=== PATIENT | female | born 1955 | race Caucasian/White ===

== ENCOUNTER → 2016-05-15 | Outpatient (CLI) | payer MEDICAID ==
--- NOTE | 2016-05-15 19:07 | MR ---
EXAMINATION TYPE: MR brain and iac wo/w con DATE OF EXAM: 05/15/2016 5:33 PM COMPARISON: NONE HISTORY: Rt sided hearing loss, dizziness Contrast: 15 mL MultiHance T1-weighted sagittal, diffusion, T2, and FLAIR axial views of the brain are submitted. The high-reso lution T2 axial and postcontrast T1 axial and coronal views of the IACs are submitted. There is no pathologic enhancement of the seventh and eighth cranial nerve complex. There is no acou stic neuroma. Changes of chronic sinusitis noted. Bilateral changes of mastoiditis greater on the right. Sella turcica has a normal appearance. Optic chiasm and cavernous sinus demonstrate no abnormality in craniocervical junction maintained. Ventricular system is midline. No evidence of acute ischemia. IMPRESSION: 1. Findings are compatible with bilateral mastoiditis greater on the right and chronic sinusitis. 2. No evidence of acoustic schwannoma or cerebellopontine angle mass.
== END | disposition home or self-care (01) ==
LOC: RADMRIMAIN 16:24
PROVIDERS: ATTEND Otolaryngology Otology & Neurotology
DX: D33.3 Benign neoplasm of cranial nerves (principal)
CPT/HCPCS: 70553; A9577

== ENCOUNTER → 2016-08-14 | Outpatient (CLI) | payer MEDICAID ==
[2016-08-14 15:58] LABS: Basophils # (A) 0.1 k/uL (0-0.2); Basophils % (A) 1 %; CH 29.4; CHCM 34.6; Eosinophils # (A) 0.5 k/uL (0-0.7); Eosinophils % (A) 8 %; HCT 37.3 % (34.0-46.0); HDW 2.87; HGB 12.9 gm/dL (11.4-16.0); Luc # (Auto) 0.19; Luc % (Auto) 3; Lymphocytes # (A) 2.4 k/uL (1.0-4.8); Lymphocytes % (A) 37 %; MCH 29.5 pg (25.0-35.0); MCHC 34.5 g/dL (31.0-37.0); MCV 85.3 fL (80.0-100.0); Mean Platelet Volume 6.5; Monocytes # (A) 0.3 k/uL (0-1.0); Monocytes % (A) 4 %; Neutrophils % (A) 46 %; RBC 4.37 m/uL (3.80-5.40); RDW 13.5 % (11.5-15.5); WBC 6.4 k/uL (3.8-10.6); WBC (Perox) 6.74
[2016-08-14 16:29] LABS: ALT 31 U/L (9-52); AST 27 U/L (14-36); Alkaline Phosphatase 87 U/L (38-126); Anion Gap 9 mmol/L; Blood Urea Nitrogen 13 mg/dL (7-17); Calcium 9.4 mg/dL (8.4-10.2); Carbon Dioxide 27 mmol/L (22-30); Chloride 108 mmol/L (98-107); Glucose 97 mg/dL (74-99); Non-African American GFR(MDRD) >60 (>60 ml/min/1.73 sqM); Potassium 4.1 mmol/L (3.5-5.1); Sodium 144 mmol/L (137-145); Total Bilirubin 0.3 mg/dL (0.2-1.3); Total Protein 6.6 g/dL (6.3-8.2)
== END | disposition home or self-care (01) ==
LOC: LABWHC1 15:39
PROVIDERS: ATTEND Family Medicine
DX: E03.9 Hypothyroidism, unspecified (principal); J45.909 Unspecified asthma, uncomplicated
CPT/HCPCS: 36415; 80053; 84439; 84443; 84481; 85025

== ENCOUNTER → 2016-09-19 | Outpatient (CLI) | payer MEDICAID ==
--- NOTE | 2016-09-20 10:42 | MM ---
Reason for exam: screening (asymptomatic). Last mammogram was performed 1 year ago. History: Patient is postmenopausal. Family history of breast cancer in maternal grandmother and breast cancer in maternal aunt. Benign cyst aspiration of the left breast, January 01, 2003. 2 benign core biopsies of the left breast. Took hormonal contraceptives for 4 years. Physical Findings: A clinical breast exam by your physician is recommended on an annual basis and results should be correlated with mammographic findings. MG 3D Screening Mammo W/Cad Bilateral CC and MLO view(s) were taken. Prior study comparison: September 07, 2015, bilateral MG 3d screening mammo w/cad. May 11, 2014, bilateral MG screening mammo w CAD. February 17, 2013, bilateral digital screening mammo w/CAD. The breast tissue is heterogeneously dense. This may lower the sensitivity of mammography. Previous mammotome biopsy in the left breast x 2. There is no discrete abnormality. ASSESSMENT: Benign, BI-RAD 2 RECOMMENDATION: Routine screening mammogram of both breasts in 1 year.
== END | disposition home or self-care (01) ==
LOC: RADMAMWWP 16:04
PROVIDERS: ATTEND Obstetrics & Gynecology
DX: Z12.31 Encounter for screening mammogram for malignant neoplasm of breast (principal)
CPT/HCPCS: 77063; G0202

== ENCOUNTER → 2016-11-01 | Outpatient (CLI) | payer MEDICAID | END | disposition home or self-care (01) | LOC: LABWHC1 09:34 | PROVIDERS: ATTEND Family Medicine | DX: E03.9 Hypothyroidism, unspecified (principal) | CPT/HCPCS: 36415; 84439; 84443; 84481 ==

== ENCOUNTER → 2016-12-04 | Outpatient (CLI) | payer MEDICAID ==
--- NOTE | 2016-12-04 09:41 | XR ---
EXAMINATION TYPE: XR ankle complete LT DATE OF EXAM: 12/04/2016 COMPARISON: NONE HISTORY: Pain FINDINGS: Three views of the ankle demonstrate the ankle mortise to be intact and symmetric. The joint spaces are preserved. The osseous structures are intact. Small spur extending off the medial malleolus. IMPRESSION: 1. No definite acute fracture or dislocation, if symptoms persist follow-up study in 7 to 10 days wou ld be suggested.
--- NOTE | 2016-12-04 09:43 | XR ---
EXAMINATION TYPE: XR knee complete LT DATE OF EXAM: 12/04/2016 COMPARISON: NONE HISTORY: Pain TECHNIQUE: Four views are submitted. FINDINGS: Moderate to severe narrowing patellofemoral joint with mild narrowing of the knee joint. No erosive c hanges. Diffuse osteopenia noted. Soft tissue calcification posteriorly. Tiny areas of bony density i n the anterior margin of the soft tissues of the knee. Osseous structures are intact. No acute fract ure seen. IMPRESSION: 1. Arthropathy with most marked findings involving the patellofemoral joint. There are small tiny bon y density seen anterior to the joint space of the knee may represent soft tissue ossification. Tiny l oose bodies not entirely excluded.
== END ==
LOC: RADXRMAIN 09:11
PROVIDERS: ATTEND Physician Assistant
DX: M17.12 Unilateral primary osteoarthritis, left knee (principal); M25.572 Pain in left ankle and joints of left foot

== ENCOUNTER → 2016-12-27 | Outpatient (CLI) | payer MEDICAID | END | disposition home or self-care (01) | LOC: LABWHC1 07:39 | PROVIDERS: ATTEND Family Medicine | DX: E03.9 Hypothyroidism, unspecified (principal) | CPT/HCPCS: 36415; 84439; 84443; 84481 ==

== ENCOUNTER → 2017-02-04 | Outpatient (CLI) | payer MEDICAID ==
[2017-02-04 16:35] LABS: CH 28.8; CHCM 33.4; HCT 37.7 % (34.0-46.0); HDW 2.68; HGB 12.4 gm/dL (11.4-16.0); MCH 28.6 pg (25.0-35.0); MCV 86.7 fL (80.0-100.0); Mean Platelet Volume 6.3; RBC 4.35 m/uL (3.80-5.40); RDW 12.8 % (11.5-15.5); WBC 7.9 k/uL (3.8-10.6)
[2017-02-04 16:55] LABS: ALT 30 U/L (9-52); AST 28 U/L (14-36); Alkaline Phosphatase 101 U/L (38-126); Anion Gap 11 mmol/L; Blood Urea Nitrogen 16 mg/dL (7-17); Calcium 9.4 mg/dL (8.4-10.2); Carbon Dioxide 24 mmol/L (22-30); Chloride 106 mmol/L (98-107); Glucose 91 mg/dL (74-99); Non-African American GFR(MDRD) >60 (>60 ml/min/1.73 sqM); Potassium 4.1 mmol/L (3.5-5.1); Sodium 141 mmol/L (137-145); Total Bilirubin 0.3 mg/dL (0.2-1.3); Total Protein 6.8 g/dL (6.3-8.2)
== END | disposition home or self-care (01) ==
LOC: LABWHC1 16:15
PROVIDERS: ATTEND Family Medicine
DX: E06.3 Autoimmune thyroiditis (principal); J45.909 Unspecified asthma, uncomplicated
CPT/HCPCS: 36415; 80053; 83540; 85027

== ENCOUNTER → 2017-03-15 | Outpatient (CLI) | payer MEDICAID ==
[2017-03-15 14:16] LABS: HCT 42.6 % (34.0-46.0); HGB 13.5 gm/dL (11.4-16.0); MCH 28.3 pg (25.0-35.0); MCHC 31.7 g/dL (31.0-37.0); MCV 89.1 fL (80.0-100.0); Mean Platelet Volume 7.2; Platelet Count 312 k/uL (150-450); RBC 4.79 m/uL (3.80-5.40); RDW 14.7 % (11.5-15.5)
[2017-03-15 14:25] LABS: Appearance,Urine Clear (Clear); Bacteria,Urine Rare /hpf; Bilirubin,Urine Negative (Negative); Blood,Urine Small (Negative); Color,Urine Yellow; Glucose,Urine (UA) Negative (Negative); Ketones,Urine Negative (Negative); Leukocyte Esterase,Urine Small (Negative); Mucus,Urine Rare /hpf; Nitrite,Urine Negative (Negative); PH, Urine 5.5 (5.0-8.0); Protein,Urine Trace (Negative); RBC,Urine 6 /hpf (0-5); Specific Gravity,Urine 1.015 (1.001-1.035); Squamous Epithelial Cell,Urine 1 /hpf (0-4); Urobilinogen,Urine <2.0 mg/dL (<2.0); WBC,Urine 6 /hpf (0-5)
[2017-03-15 14:26] LABS: ALT 41 U/L (9-52); AST 32 U/L (14-36); Albumin 4.3 g/dL (3.5-5.0); Alkaline Phosphatase 89 U/L (38-126); Anion Gap 9 mmol/L; Blood Urea Nitrogen 15 mg/dL (7-17); Calcium 9.7 mg/dL (8.4-10.2); Carbon Dioxide 27 mmol/L (22-30); Chloride 104 mmol/L (98-107); Glucose 110 mg/dL (74-99); Potassium 4.5 mmol/L (3.5-5.1); Sodium 140 mmol/L (137-145); Total Bilirubin 0.4 mg/dL (0.2-1.3); Total Protein 7.1 g/dL (6.3-8.2)
[2017-03-15 14:31] LABS: Partial Thromboplastin Time 22.4 sec (22.0-30.0); Prothrombin Time 9.9 sec (9.0-12.0)
== END | disposition home or self-care (01) ==
LOC: LABPAT 13:15
PROVIDERS: ATTEND Orthopaedic Surgery
DX: Z01.818 Encounter for other preprocedural examination (principal); Z01.812 Encounter for preprocedural laboratory examination
CPT/HCPCS: 36415; 80053; 81001; 85027; 85610; 85730; 87070; 93005

== ENCOUNTER 2017-04-01 10:47 | Inpatient (IN) | payer MEDICAID ==
[2017-03-22 11:27] VITALS: BMI 22.9
[~2017-04-01 10:47] MED LIST: ACETAMINOPHEN TAB 500 MG TAB PO ONE; DEXAMETHASONE SOD PHOSPHATE 10 MG/ML 1 ML VIAL IV ONE; LACTATED RINGERS 1,000 ML IV SCH; MIDAZOLAM 2 MG/2 ML VIAL IV PRN; MORPHINE SULFATE 4 MG/ML SYRINGE IV PRN; ONDANSETRON 4 MG/2 ML VIAL IVP ONE; SCOPOLAMINE 1.5MG/72HR PATCH TRANSDERM ONE; TRANEXAMIC ACID 1,000 MG in SODIUM CHLORIDE 0.9% 50 ML IVPB ONE
[2017-04-01] MEDS: MELOXICAM 7.5 MG TAB PO ONE ×2 (11:23→16:50)
[2017-04-01] MEDS ORDERED: LIDOCAINE 1% 20 ML VIAL (10MG/ML) FOR IV START INTRADERMA ONE (11:50)
[2017-04-01] MEDS ORDERED: ROPIVACAINE 246.25 MG, EPINEPHrine 0.5 MG, KETOROLAC 30 MG, cloNIDine HCL/PF 80 MCG, WA... MISCELLANE ONE ×5 (13:16)
[2017-04-01] MEDS ORDERED: fentaNYL (PF) 50 MCG/ML 2 ML AMP ONE (13:38)
[2017-04-01] MEDS ORDERED: diphenhydrAMINE 50 MG/ML 1 ML VIAL ONE (13:38)
[2017-04-01] MEDS ORDERED: MIDAZOLAM 2 MG/2 ML VIAL ONE (13:38)
[2017-04-01] MEDS ORDERED: PROPOFOL 10 MG/ML 20 ML VIAL IV ONE (13:38)
[2017-04-01] MEDS ORDERED: HYDROmorphone (PF) 1 MG/ML ONE (13:38)
[2017-04-01] MEDS: ceFAZolin IN SWFI 2 GM/20 ML SYRINGE IVP ONE ×2 (13:52→14:16)
[2017-04-01] MEDS: ROPIVACAINE 246.25 MG, EPINEPHrine 0.5 MG, cloNIDine HCL/PF 80 MCG, WATER FOR INJECTION... MISCELLANE ONE ×8 (14:17→14:41)
[2017-04-01] MEDS ORDERED: CLINDAMYCIN 600 MG in SODIUM CHLORIDE 0.9% 1,000 ML IRRIGATION ONE ×4 (14:18)
[2017-04-01] MEDS ORDERED: LACTATED RINGERS 1,000 ML IV ONE (14:51)
--- NOTE | 2017-04-01 15:56 | P.OP ---
Date of Procedure: 04/01/17 Procedure(s) Performed: PREOPERATIVE DIAGNOSIS: Left knee severe osteoarthritis with genu varum POSTOPERATIVE DIAGNOSIS: Left knee severe osteoarthritis with genu varum OPERATION: Left knee cemented total replacement arthroplasty. ANESTHESIA: Spinal ESTIMATED BLOOD LOSS: 100 ml. ASSEMBLY MACHINE TENDER: Ning Gomez PA-C (assistance with: patient positioning, retraction, exposure, hemostasis, leg positioning, implantation, irrigation, closure, dressing) COMPLICATIONS: None apparent. COMPONENTS IMPLANTED: Persona system from [employer] INDICATIONS: Mrs. Sandra is a 61-year-old female with a history of left knee osteoarthritis. Conservative treatment has been tried and has been unsuccessful in controlling symptoms adequately. The operation of knee replacement has been discussed at length in the office, as well as potential risks and complications. These are inclusive of, but not limited to: bleeding, infection, scarring, discomfort, blood vessel and nerve damage, need for further surgery, failure to relieve symptoms, persistence, recurrence, or worsening of problems, loosening, dislocation, wear, blood clot, pulmonary embolism, , gait dysfunction, stiffness, and other risks as discussed in the office. The patient elects to proceed and the consent form has been signed. PROCEDURE: The patient was taken to the operating room and positioned on the operating room table in the supine position. Anesthesia was initiated. Care was taken to make sure that all pressure points were adequately padded. The operative lower extremity was prepped and draped in the usual aseptic fashion using ChloraPrep. Ioban drape was used for the case and the patient received intravenous antibiotics within one hour of the incision. A pneumotourniquet and leg augustin were used for the case. The limb was exsanguinated with an Esmarch bandage and the tourniquet was inflated to 350 mmHg. Time-out was called confirming the patient's identity, side, procedure and administration of antibiotics and tranexamic acid, 1 g IV. The incision was then created midline directly over the knee, carried down through skin and into the subcutaneous tissues and down to fascia. Full thickness subcutaneous medial flap was developed. Medial parapatellar arthrotomy was performed and the interior of the knee was inspected. There was end-stage osteoarthritis of the knee with a mild to moderate genu varum type deformity. The fat pad was excised and proximal medial release on the tibia was completed using meticulous dissection and a curved osteotome. The anterior cruciate ligament was taken down. Note was made of significant attrition of the anterior and significant degenerative appearance of the posterior cruciate ligaments. The exposure was excellent. The knee was flexed 90 degrees and the patella was everted. A spot was chosen on the femur approximately 1 cm anterior to the posterior cruciate ligament insertion and an intramedullary hole was created within the femur. The intramedullary guide was then set to 5 degrees of valgus. The distal cutting block was attached and pinned into position. An appropriate amount of distal femoral resection was set. The oscillating saw was then used to make the distal femoral cut. This cut was confirmed to be flat with the flat end of an osteotome. The retractors were placed around the tibia and the tibial surface was addressed. The angle and depth of resection was adjusted using an extramedullary cutting guide. The guide had a built-in 3 degree posterior slope cut. Once the cutting guide was adjusted appropriately and in line with the axis of the tibia and confirmed to be in good position in relation to the second metatarsal and transmalleolar axis, the tibial cut was then created with protection of the posterior neurovascular structures and the collateral ligaments. The tibial cut surface was removed and sized. Femoral sizing was then accomplished using anterior referencing. Care was taken to analyze the posterior condyles for signs of deficiency or severe wear, and adjustments to the guide were made, as appropriate. 3 degree external rotation pins were placed. The cutting jig for the femur was applied to these pins. The planned cuts were further analyzed prior to performing them with the oscillating saw. No femoral notching was produced. Bone fragments were removed and the cut surfaces were finished, as necessary, with a reciprocating saw. Spacer block technique was then used to confirm that the flexion and extension gaps were equal. Soft tissue releases and adjustment of the tibial and/or femoral cuts were made, as necessary, until the gaps were equal. This included release of the posterior cruciate ligament, which was tight in this patient. The femur was then further finished for a posterior cruciate ligament substituting component. Patellar resurfacing was performed using a reamer. The size of the required patellar component was estimated and the patellar surface was then reamed down to a residual thickness which would recreate the [place] thickness with the component. The placement of the patellar component was influenced by the degree of patellar subluxation, if any, noted on the preoperative x-rays. Prior to placing trial components, anesthetic solution consisting of ropivicaine with epinephrine, ketorolac, and clonidine was injected carefully and methodically in a grid pattern using aspiration technique into the soft tissue around the knee circumferentially, starting with the deeper tissues first and progressing to fascia, and then finally the skin/subcutaneous tissue. Particular care was taken when injecting the posterior capsule. The trial components were inserted. The tibial tray was allowed to self center and the patella was noted to track very well. The position of the tibial component was marked and the tibia was then finished for a stemmed tibial component. Cement was mixed on the back table and applied to the final components. Trial components were removed and the cut surfaces of the bone were pulse lavaged thoroughly and dried. Cement was then applied to the tibial surface and pressurized into the surface using finger pressurization technique. The tibial component was then applied and excess cement was removed after it was impacted securely and noted to be flush with the cut surface. In similar fashion, the cement was applied to the cut femoral surface, pressurized in using finger pressurization and the component was impacted into place. Excess cement was removed. The polyethylene spacer was then implanted and locked into position. The patellar component was then applied in similar technique and a patellar clamp was used to hold the patella in place as the cement hardened. Once the cement had fully hardened, the knee was reinspected. Any other cement extrusion was removed and final kinematic testing showed range of motion from 0 to 130 degrees with excellent stability, both medially and laterally and appropriate alignment of the leg. Patellar tracking was excellent. The knee was then thoroughly pulse lavaged with normal saline. The tourniquet was deflated and hemostasis was obtained with electrocautery and IV tranexamic acid, 1 g given prior to inflation of the tourniquet and another gram given at the time of closure. Closure was with #2 Ethibond in the fascia and supplemented with #2 Quill, 2-0 Vicryl suture was used for the subcutaneous tissues and 3-0 Quill for the skin. Dermabond/Steri-Strips were then applied. A lightly compressive dressing was applied using Webril and an Kirit wrap. The patient was then transferred to stretcher and taken to the recovery room in stable condition. Sponge and needle counts were correct.
[2017-04-01] MEDS ORDERED: NA PHOS,M-B/NA PHOS,DI-BA 133 ML ENEMA RECTAL PRN (15:57)
[2017-04-01] MEDS ORDERED: MAGNESIUM HYDROXIDE 2,400 MG/10 ML CUP PO PRN (15:57)
[2017-04-01] MEDS ORDERED: HYDROmorphone 0.5 MG/0.5 ML SYRINGE IVP PRN ×2 (15:57)
[2017-04-01] MEDS ORDERED: TEMAZEPAM 15 MG CAP PO PRN (15:57)
[2017-04-01] MEDS ORDERED: NALOXONE 0.4 MG/ML 1 ML VIAL IV PRN (15:57)
[2017-04-01] MEDS ORDERED: ONDANSETRON 4 MG/2 ML VIAL IVP PRN (15:57)
[2017-04-01] MEDS ORDERED: BISACODYL 10 MG SUPP RECTAL PRN (15:57)
--- NOTE | 2017-04-01 16:28 | XR ---
Left knee HISTORY: Postop knee arthroplasty 2 views of the left knee correlated to prior exam 12/04/2016 Patient is status post left knee arthroplasty. There is anatomic alignment. Lucency present in the so ft tissues compatible with postop state. Calcifications are noted about the knee posteriorly. IMPRESSION: Orthopedic follow-up
[2017-04-01] MEDS: LACTATED RINGERS 1,000 ML IV SCH (17:18)
[2017-04-01] MEDS ORDERED: FLUTICASONE 50MCG/SPRAY NASAL 16GM EA NOSTRIL PRN (19:13)
[2017-04-01] MEDS: HYDROcodone/APAP 5-325MG 1 EACH TAB PO PRN (19:56)
[2017-04-01] MEDS: ceFAZolin IN SWFI 2 GM/20 ML SYRINGE IVP SCH (19:57)
[2017-04-01] MEDS: SENNOSIDES-DOCUSATE SODIUM 1 EACH TAB PO SCH (19:57)
[2017-04-01] MEDS: LORATADINE 10 MG TAB PO SCH (19:59)
[2017-04-02] MEDS: ACETAMINOPHEN TAB 325 MG TAB PO PRN ×3 (00:57→10:03)
[2017-04-02] MEDS: ceFAZolin IN SWFI 2 GM/20 ML SYRINGE IVP SCH (05:33)
[2017-04-02] MEDS: hydrOXYzine PAMOATE 25 MG CAP PO PRN ×3 (05:52→17:18)
[2017-04-02] MEDS: HYDROcodone/APAP 5-325MG 1 EACH TAB PO PRN ×3 (05:53→19:28)
[2017-04-02] MEDS: THYROID, PORK 30 MG TAB PO SCH (05:53)
[2017-04-02] MEDS: LACTATED RINGERS 1,000 ML IV SCH ×2 (06:42→18:09)
[2017-04-02 07:24] LABS: Basophils # (A) 0.1 k/uL (0-0.2); Basophils % (A) 0 %; Eosinophils % (A) 0 %; HCT 32.8 % (34.0-46.0); HGB 10.9 gm/dL (11.4-16.0); Lymphocytes # (A) 2.5 k/uL (1.0-4.8); Lymphocytes % (A) 21 %; MCH 28.4 pg (25.0-35.0); MCHC 33.2 g/dL (31.0-37.0); MCV 85.5 fL (80.0-100.0); Mean Platelet Volume 6.8; Monocytes # (A) 0.9 k/uL (0-1.0); Monocytes % (A) 8 %; Neutrophils # (A) 8.4 k/uL (1.3-7.7); Neutrophils % (A) 69 %; Platelet Count 272 k/uL (150-450); RBC 3.84 m/uL (3.80-5.40); RDW 12.8 % (11.5-15.5); WBC 12.1 k/uL (3.8-10.6)
--- NOTE | 2017-04-02 08:37 | CONS ---
CONSULTATION REASON FOR CONSULTATION: Advice regarding hypothyroidism and other multiple medical issues requested by Orthopedic surgery. HISTORY OF PRESENT ILLNESS: This 67-year-old woman with a past medical history of hypothyroidism, history of migraine, Sandrine's thyroid disease, history of DJD being followed by Dr. Mike in the outpatient setting underwent left total knee arthroplasty by Orthopedic surgery. There is no history of fever, rigors, no headache, loss of consciousness, seizures. PAST MEDICAL HISTORY: History of hypothyroidism, migraine headaches, Sandrine's disease. MEDICATIONS: Prior to admission include home medications are: 1. 20 mg q.a.m. 2. Vitamin B one p.o. daily. 3. Alloy thyroid 90 mcg p.o. daily. 4. Macrodantin 100 mg p.o. b.i.d. 5. Multivitamin. 6. Flonase 2 sprays daily p.r.n. 7. Iron sulfate 325 mg. 8. Vitamin D3 2000. 9. Zyrtec 10 mg. 10.Calcium with vitamin D 1 tab p.o. daily. 11.Biotin 500 mcg. 12.Vitamin C 1000 mg p.o. daily. 13.Senokot-S 1 tab p.o. b.i.d. 14.Xarelto 10 mg. 15.[place] 5 mg 1 tab q.4h to 6 p.r.n. ALLERGIES: CIPRO, FLOXIN AND NSAIDS, PENICILLIN, SULFA, WHEAT AND CODEINE. FAMILY HISTORY: Family history of cancer in the family. SOCIAL HISTORY: Previous history of smoking. No alcohol intake. REVIEW OF SYSTEMS: ENT: No diminished hearing or vision. CARDIOVASCULAR: No angina or palpitations. Respiratory: As mentioned earlier. GI no nausea or vomiting. no dysuria. Allergy/Immunology: No asthma or hayfever. Musculoskeletal: As mentioned earlier. Hematology/Oncology: No history of anemia. Endocrine: As mentioned earlier. Constitutional: As mentioned earlier. Rheumatology: Negative. Dermatology: Negative. Psychiatric: As mentioned earlier. PHYSICAL EXAM: The patient is alert and oriented times three. Pulse 76, blood pressure 140/77, respiratory rate 16, temperature 98, pulse ox 98% on 2 L. HEENT: Conjunctivae normal. Oral mucosa moist. Neck is no jugular venous distention. No carotid bruit. No lymph node enlargement. Cardiovascular S1 S2. No S3, no S4. Respiratory: Breath sounds diminished in the bases. No rhonchi. No crackles. ABDOMEN: Soft, nontender. Legs: Status post left knee arthroplasty. NERVOUS SYSTEM: Higher functions as mentioned earlier, moves all 4 limbs, no focal deficits.. Lymphatics: No lymph nodes palpable in the neck, axillae or groin. Skin no ulcer, rash or bleeding. LABS: Glucose is 110. Otherwise, LDL is 127, free T4, is normal. TSH is 1. UA 18 RBCs. ASSESSMENT: 1. Status post left total knee arthroplasty for severe degenerative joint disease. 2. Hypothyroidism. 3. Migraines. 4. Sandrine's. 5. Hyperlipidemia. 6. History of uterine ablation. 7. Cardioversion. 8. Remote history of nicotine dependence. RECOMMENDATIONS AND DISCUSSION: In this 61-year-old woman who presented with multiple complex medical issues, at this time, we will monitor the patient closely. Continue the current medications, continue symptomatic treatment. Otherwise, at this time, I recommend resume the home medications and DVT prophylaxis. Incentive spirometry. Advice close follow up with Dr. Mike in the outpatient setting regarding the followup of multiple medical issues as listed earlier. I would also repeat a UA with micro also to complete the workup. Otherwise we will follow the patient closely with you. Thank you Dr. Hernandez, for letting us participate in the care of this patient. MMYANETHL / DAVIN: [id number] / LUCIA
--- NOTE | 2017-04-02 08:47 | P.PN ---
Subjective Progress Note Date: 04/02/17 Principal diagnosis: Status post left total knee arthroplasty This is a 61 year-old female post left total knee arthroplasty. This is post- op day 1. The patient was evaluated at the bedside today. The patient denies nausea, vomiting, abdominal pain, shortness of breath, and chest pain this morning. She states her pain is not controlled at this time. The patient has not been up with physical therapy yet this morning. Objective - Vital Signs Vital signs: Vital Signs Temp 98.0 F 04/02/17 04:12 Pulse 70 04/02/17 04:12 Resp 16 04/02/17 04:12 BP 128/60 04/02/17 04:12 Pulse Ox 94 L 04/02/17 04:12 Intake & Output 04/01/17 04/02/17 04/02/17 18:59 06:59 18:59 Intake Total 1502 Output Total 75 Balance 1427 Weight 72.575 kg Intake: IV 1502 Output: Estimated Blood Loss 75 Other: Voiding Method Toilet Bedside Commode # Voids 2 - Exam The patient does not appear in acute distress. Alert and orientated x3. Dressing is clean dry and intact. Incision appears fine with no erythema or active drainage. Calf is soft and nontender. Good foot and ankle motion without difficulty. Sensation and circulatory status is intact. - Labs CBC & Chem 7: 04/02/17 06:33 Labs: Abnormal Lab Results - Last 24 Hours (Table) 04/02/17 Range/Units 06:33 WBC 12.1 H (3.8-10.6) k/uL Hgb 10.9 L (11.4-16.0) gm/dL Hct 32.8 L (34.0-46.0) % Neutrophils # 8.4 H (1.3-7.7) k/uL Assessment and Plan (1) Primary localized osteoarthritis of left knee Current Visit: Yes Status: Acute Code(s): M17.12 - UNILATERAL PRIMARY OSTEOARTHRITIS, LEFT KNEE SNOMED Code(s): 763624028 (2) Status post total left knee replacement Current Visit: Yes Status: Acute Code(s): Z96.652 - PRESENCE OF LEFT ARTIFICIAL KNEE JOINT SNOMED Code(s): 3415335998965 Plan: 1. Continue pain control, may increase to two [place] 5's 2. Anticoagulation with Xarelto 3. Start physical therapy, CPM, and ambulation 4. Anticipate discharge home today or tomorrow
[2017-04-02] MEDS ORDERED: NON-FORMULARY DRUG (Biotin [Biotin] 5,000 MCG) PO SCH (09:00)
[2017-04-02] MEDS: CHOLECALCIFEROL 1,000 UNIT TAB PO SCH (10:04)
[2017-04-02] MEDS: B COMPLEX-VIT C-VIT E-ZINC 1 EACH TAB PO SCH (10:04)
[2017-04-02] MEDS: CALCIUM CARB-VIT D 500MG-200UN 1 EACH TAB PO SCH (10:04)
[2017-04-02] MEDS: MULTIVITAMINS, THERA 1 EACH TAB PO SCH (10:04)
[2017-04-02] MEDS: RIVAROXABAN 10 MG TAB PO SCH (10:05)
[2017-04-02] MEDS: FERROUS SULFATE 325 MG TAB PO SCH (10:05)
--- NOTE | 2017-04-02 16:49 | PN ---
PROGRESS NOTE DATE OF SERVICE: 04/02/2017. INTERVAL HISTORY: This 61-year-old woman who was admitted after a total left knee arthroplasty. Monitored closely. No chest pain. No palpitations. No fever. Patient complaining of knee pain. EXAM: Alert and oriented times three. Pulse is 65, blood pressure 110/87, respirations 16, temperature 98.2, pulse ox 98% on room air. HEENT: Conjunctivae normal. Neck: No jugular venous distention. Cardiovascular: S1, S2 muffled. Respiratory: Breath sounds diminished in the bases. No rhonchi and no crackles. Abdomen: Soft. Legs status post surgery. Nervous system: No focal deficits. LAB STUDIES: At this time shows WBC 12.2, hemoglobin 10.9. ASSESSMENT: 1. Status post left total knee arthroplasty for severe degenerative joint disease. 2. Increased WBC possibly reactive, rule out urinary tract infection. 3. Hypothyroidism. 4. Migraines. 5. Sandrine's. 6. Hyperlipidemia. 7. History of uterine ablation. 8. History of cardioversion. 9. Remote history of nicotine dependence. RECOMMENDATIONS AND DISCUSSION: Recommend to continue current medications, management and symptomatic treatment. Recommend UA with micro. Otherwise continue the rest of medications. DVT prophylaxis. Further recommendations to follow. MMODL / IJN: [id number] /
[2017-04-02] MEDS: traMADol 50 MG TAB PO PRN (17:18)
[2017-04-02] MEDS: SENNOSIDES-DOCUSATE SODIUM 1 EACH TAB PO SCH (21:11)
[2017-04-02] MEDS: LORATADINE 10 MG TAB PO SCH (21:12)
[2017-04-02] MEDS: MONTELUKAST 5 MG CHEWABLE PO SCH (21:12)
[2017-04-03] MEDS: THYROID, PORK 30 MG TAB PO SCH (05:39)
[2017-04-03] MEDS: traMADol 50 MG TAB PO PRN ×3 (08:28→18:22)
[2017-04-03] MEDS: CALCIUM CARB-VIT D 500MG-200UN 1 EACH TAB PO SCH (08:29)
[2017-04-03] MEDS: CHOLECALCIFEROL 1,000 UNIT TAB PO SCH (08:29)
[2017-04-03] MEDS: B COMPLEX-VIT C-VIT E-ZINC 1 EACH TAB PO SCH (08:29)
[2017-04-03] MEDS: MULTIVITAMINS, THERA 1 EACH TAB PO SCH (08:29)
[2017-04-03] MEDS: RIVAROXABAN 10 MG TAB PO SCH (08:30)
[2017-04-03] MEDS: FERROUS SULFATE 325 MG TAB PO SCH (08:30)
--- NOTE | 2017-04-03 08:37 | P.DS ---
Providers Date of admission: 04/01/17 10:47 Expected date of discharge: 04/03/17 Attending physician: Miller Hernandez Consults: 04/01/17 15:57 Consult Physician Routine Consulting Provider: Oswald Mike Consult Reason/Comments: Medical management Do you want consulting provider notified?: Yes 04/01/17 16:51 Consult Physician Routine Consulting Provider: Sharif Funes Consult Reason/Comments: medical managment Do you want consulting provider notified?: Yes Primary care physician: Eric Mike - Discharge Diagnosis(es) (1) Primary localized osteoarthritis of left knee Current Visit: Yes Status: Acute (2) Status post total left knee replacement Current Visit: Yes Status: Acute Hospital Course: This is a 61-year-old female who was last seen with complaint of continued left knee pain. The patient has a known history of degenerative arthritis of the left knee and presents to discuss surgical options. After discussion and consideration the patient elects to proceed with total left knee arthroplasty. The patient is seen preoperatively by her primary care physician and cleared for surgery. The patient is admitted to [facility] for total left knee arthroplasty. The procedure is performed without complication or sequelae. She is doing well postoperatively. There were some issues with pain management during her stay. She is doing much better on day of discharge. Vital signs are stable at discharge. Labs are stable at discharge. the patient is ambulating well with walker with minimal assistance. The patient is discharged to home on postop day #2 pending medical clearance. Please see orders and refer to the [facility] rec for accurate list of medications. Plan - Discharge Summary Discharge Rx Participant: Yes New Discharge Prescriptions: New Rivaroxaban [Xarelto] 10 mg PO DAILY #1 tab HYDROcodone/APAP 5-325MG [Suring 5-325] 1 - 2 each PO Q4-6H PRN #90 tab PRN Reason: Pain Sennosides-Docusate Sodium [Senokot-S] 1 tab PO BID #60 tablet traMADol HCL [Conzip] 100 mg PO Q6H #90 cap No Action Cholecalciferol [Vitamin D3] 2,000 unit PO DAILY Vitamin B Complex 1 cap PO DAILY Multivitamins, Thera [Multivitamin] 1 tab PO DAILY Zafirlukast [Accolate] 20 mg PO QAM Fluticasone Nasal [place] [Flonase Nasal [place]] 2 spr EA NOSTRIL DAILY PRN PRN Reason: Congestion Ferrous Sulfate [Feosol] 325 mg PO DAILY Biotin 5,000 mcg PO DAILY Ascorbic Acid [Vitamin C] 1,000 mg PO DAILY Cetirizine HCl [Zyrtec] 10 mg PO HS Calcium Carbonate/Vitamin D3 [Calcium 600-Vit D3 200 Tablet] 1 tab PO DAILY Nitrofurantoin Macrocrystal [Macrodantin] 100 mg PO Q12H Thyroid,Pork [[place] Thyroid] 90 mg PO DAILY Discharge Medication List Cholecalciferol [Vitamin D3] 2,000 unit PO DAILY 07/07/15 [History] Multivitamins, Thera [Multivitamin] 1 tab PO DAILY 07/07/15 [History] Vitamin B Complex 1 cap PO DAILY 07/07/15 [History] Zafirlukast [Accolate] 20 mg PO QAM 07/08/15 [History] Ascorbic Acid [Vitamin C] 1,000 mg PO DAILY 03/22/17 [History] Biotin 5,000 mcg PO DAILY 03/22/17 [History] Calcium Carbonate/Vitamin D3 [Calcium 600-Vit D3 200 Tablet] 1 tab PO DAILY 02/25 [History] Cetirizine HCl [Zyrtec] 10 mg PO HS 03/22/17 [History] Ferrous Sulfate [Feosol] 325 mg PO DAILY 03/22/17 [History] Fluticasone Nasal [place] [Flonase Nasal [place]] 2 spr EA NOSTRIL DAILY PRN [History] Nitrofurantoin Macrocrystal [Macrodantin] 100 mg PO Q12H 03/22/17 [History] HYDROcodone/APAP 5-325MG [[place] 5-325] 1 - 2 each PO Q4-6H PRN #90 tab 04/01/17 [Rx] Rivaroxaban [Xarelto] 10 mg PO DAILY #1 tab 04/01/17 [Rx] Sennosides-Docusate Sodium [Senokot-S] 1 tab PO BID #60 tablet 04/01/17 [Rx] Thyroid,Pork [[place] Thyroid] 90 mg PO DAILY 04/01/17 [History] traMADol HCL [Conzip] 100 mg PO Q6H #90 cap 04/03/17 [Rx] Follow up Appointment(s)/Referral(s): Ning Gomez PAC [PHYSICIAN DAIRY TESTER] - 04/18/17 2:00 pm Oswald Mike MD [Primary Care Provider] - 04/16/17 10:20 am [facility], [NON-STAFF] - Ambulatory/Diagnostic Orders: Continuous Passive Motion (CPM) Machine [DME.AMB1] Location: Determined By Patient Activity/Diet/Wound Care/Special Instructions: Patient has Xarelto script at home. May bear wt as tolerated w walker. May shower if no drainage from incision. [facility] - CPM - [phone] - call when home to set up delivery of CPM Discharge Disposition: HOME WITH HOME HEALTH SERVICES
[2017-04-03] MEDS: ACETAMINOPHEN TAB 325 MG TAB PO PRN (11:58)
[2017-04-03] MEDS: hydrOXYzine PAMOATE 25 MG CAP PO PRN (13:36)
--- NOTE | 2017-04-03 17:04 | PN ---
PROGRESS NOTE DATE OF SERVICE: 04/03/2017 This 61-year-old woman was admitted after left total knee joint arthroplasty, is complaining of knee pain. No chest pain. No palpitations. No fever. The white count is 2.1. EXAM: Alert and oriented x2. Pulse is 82, blood pressure 150/83, respiration 16, temperature 98.7, pulse ox 98% on room air. HEENT: Conjunctivae normal. Neck is no jugular venous distention. Cardiac: S1, S2. Respirations: Breath sounds diminished in the bases. No rhonchi. No crackles. Abdomen is soft, nontender. Legs status post surgery. Nervous system: No focal deficits. LABS: WBC 12.9, hemoglobin 10.9. ASSESSMENT: 1. Status post left total knee arthroplasty for severe degenerative joint disease. 2. Increased WBC possibly reactive. Rule out urinary tract infection. 3. Hypothyroidism. 4. Migraine. 5. History of Sandrine's. 6. Hyperlipidemia. 7. History of uterine fibrillation. 8. History of cardioversion. 9. Remote history of nicotine dependence. RECOMMENDATIONS AND DISCUSSION: Recommend to continue current medications, management and symptomatic treatment, monitor the patient closely and otherwise closely follow with the primary physician in the outpatient setting. Resume the home medications. Further recommendations to follow. MMODL / IJN: [id number] /
[2017-04-03] MEDS: LORATADINE 10 MG TAB PO SCH (20:22)
[2017-04-03] MEDS: SENNOSIDES-DOCUSATE SODIUM 1 EACH TAB PO SCH (20:22)
[2017-04-03] MEDS: MONTELUKAST 5 MG CHEWABLE PO SCH (20:22)
[2017-04-04] MEDS: THYROID, PORK 30 MG TAB PO SCH (06:04)
[2017-04-04] MEDS: traMADol 50 MG TAB PO PRN (06:04)
[2017-04-04 08:07] LABS: Basophils % (A) 0 %; Eosinophils # (A) 0.1 k/uL (0-0.7); Eosinophils % (A) 1 %; HCT 34.9 % (34.0-46.0); HGB 11.5 gm/dL (11.4-16.0); Lymphocytes % (A) 22 %; MCH 28.1 pg (25.0-35.0); MCHC 32.9 g/dL (31.0-37.0); MCV 85.4 fL (80.0-100.0); Mean Platelet Volume 6.5; Monocytes # (A) 0.6 k/uL (0-1.0); Monocytes % (A) 6 %; Neutrophils # (A) 6.4 k/uL (1.3-7.7); Neutrophils % (A) 69 %; Platelet Count 286 k/uL (150-450); RBC 4.08 m/uL (3.80-5.40); RDW 12.8 % (11.5-15.5); WBC 9.3 k/uL (3.8-10.6)
--- NOTE | 2017-04-04 08:15 | P.PN ---
Subjective Progress Note Date: 04/04/17 Principal diagnosis: Primary osteoarthritis left knee. Status post total left knee arthroplasty. This is a 61-year-old female who is status post total left knee arthroplasty. Her discharge was held for pain management. The patient states that she is doing much better today. Vital signs are stable. Objective - Vital Signs Vital signs: Vital Signs Temp 98.0 F 04/04/17 01:25 Pulse 87 04/04/17 01:25 Resp 16 04/04/17 01:25 BP 136/77 04/04/17 01:25 Pulse Ox 92 L 04/04/17 01:25 Intake & Output 04/03/17 04/04/17 04/04/17 18:59 06:59 18:59 Intake Total 500 Balance 500 Intake: Oral 500 Other: # Voids 2 1 - Exam This is a pleasant [id number] female in no acute distress. She is alert and oriented 3. Exam of the left knee reveals that her dressing is clean, dry and intact. She has full foot and ankle motion without difficulty or pain. Neurovascular status to the lower extremity is intact. - Labs CBC & Chem 7: 04/02/17 06:33 Assessment and Plan (1) Primary localized osteoarthritis of left knee Current Visit: Yes Status: Acute Code(s): M17.12 - UNILATERAL PRIMARY OSTEOARTHRITIS, LEFT KNEE SNOMED Code(s): 623697329 (2) Status post total left knee replacement Current Visit: Yes Status: Acute Code(s): Z96.652 - PRESENCE OF LEFT ARTIFICIAL KNEE JOINT SNOMED Code(s): 4997390231586 Plan: The clinical findings are discussed with the patient today. She may be discharged to home today. Please see prior discharge instructions and med rec.
[2017-04-04 08:40] VITALS: BP 136/64; PULSE 77; RESP 17; TEMP 97
[2017-04-04] MEDS: B COMPLEX-VIT C-VIT E-ZINC 1 EACH TAB PO SCH (09:10)
[2017-04-04] MEDS: FERROUS SULFATE 325 MG TAB PO SCH (09:11)
[2017-04-04] MEDS: CALCIUM CARB-VIT D 500MG-200UN 1 EACH TAB PO SCH (09:11)
[2017-04-04] MEDS: CHOLECALCIFEROL 1,000 UNIT TAB PO SCH (09:11)
[2017-04-04] MEDS: RIVAROXABAN 10 MG TAB PO SCH (09:12)
[2017-04-04] MEDS: MULTIVITAMINS, THERA 1 EACH TAB PO SCH (09:12)
[2017-04-04] MEDS: ACETAMINOPHEN TAB 325 MG TAB PO PRN ×2 (10:42→14:37)
[2017-04-04 13:15] LABS: Appearance,Urine Clear (Clear); Bacteria,Urine Rare /hpf; Bilirubin,Urine Negative (Negative); Blood,Urine Moderate (Negative); Color,Urine Yellow; Glucose,Urine (UA) Negative (Negative); Hyaline Casts,Urine 1 /lpf (0-2); Ketones,Urine Negative (Negative); Leukocyte Esterase,Urine Negative (Negative); Mucus,Urine Few /hpf; Nitrite,Urine Negative (Negative); Protein,Urine 1+ (Negative); RBC,Urine 4 /hpf (0-5); Specific Gravity,Urine 1.016 (1.001-1.035); Squamous Epithelial Cell,Urine 1 /hpf (0-4); Urobilinogen,Urine <2.0 mg/dL (<2.0); WBC,Urine 5 /hpf (0-5)
--- NOTE | 2017-04-04 20:24 | PN ---
PROGRESS NOTE DATE OF SERVICE: 04/04/2017 This 61-year-old woman who was admitted after left total knee arthroplasty is improving significantly. The white count is improving at this time. It has been 9.3. UA is being noted with 5 WBCs. No chest pain. No palpitations. No fever. PHYSICAL EXAMINATION: Alert and oriented x3. Pulse 77, blood pressure 130/62, respiration 17, temperature 97 degrees, pulse ox 94% on room air. HEENT: Conjunctivae normal. NECK: No jugular venous distention. CARDIOVASCULAR SYSTEM: S1, S2 muffled. RESPIRATORY SYSTEM: Breath sounds diminished at the bases. No rhonchi. No crackles. ABDOMEN: Soft, non-tender. LEGS: No edema. No swelling. NERVOUS SYSTEM: No focal deficit. LABS: CBC within normal limits. ASSESSMENT: 1. Status post left total knee arthroplasty for severe degenerative joint disease. 2. Increased white count, possibly reactive. UTI unlikely. 3. Hypothyroidism. 4. Migraine. 5. History of Sandrine's. 6. Hyperlipidemia. 7. History of cardioversion. 8. Remote history of nicotine dependence. 9. History of uterine ablation. RECOMMENDATIONS AND DISCUSSION: I recommend to continue current medication, continue symptomatic treatment. Otherwise at this time I would recommend close followup with the primary physician in the outpatient setting, Dr. Mike. Otherwise, further recommendations per Orthopedic Surgery. Further recommendations to follow. MMODL / IJN: [id number] /
== END 2017-04-04 15:12 | disposition home health service (06) | DRG 470 ==
LOC: 2ORMAIN 10:47 → 3SUR 16:41
PROVIDERS: ADMIT Orthopaedic Surgery; ATTEND Orthopaedic Surgery
PROC: 0SRD0J9 Replacement of Left Knee Joint with Synthetic Substitute, Cemented, Open Approach (ICD-10-PCS; principal; 2017-04-01 15:45)
DX: M17.12 Unilateral primary osteoarthritis, left knee (principal); E03.9 Hypothyroidism, unspecified; J45.909 Unspecified asthma, uncomplicated; Z79.51 Long term (current) use of inhaled steroids; Z79.890 Hormone replacement therapy; Z79.899 Other long term (current) drug therapy; Z88.6 Allergy status to analgesic agent; Z88.1 Allergy status to other antibiotic agents; Z88.0 Allergy status to penicillin; Z82.49 Family history of ischemic heart disease and other diseases of the circulatory system; Z87.891 Personal history of nicotine dependence; E06.3 Autoimmune thyroiditis; G43.909 Migraine, unspecified, not intractable, without status migrainosus; E78.5 Hyperlipidemia, unspecified; M21.162 Varus deformity, not elsewhere classified, left knee; Z80.9 Family history of malignant neoplasm, unspecified
CPT/HCPCS: 81001; 85025; 87086; 88300

== ENCOUNTER → 2017-04-18 | Outpatient (CLI) | payer MEDICAID ==
[2017-04-18 15:52] LABS: Basophils # (A) 0.1 k/uL (0-0.2); Basophils % (A) 1 %; Eosinophils # (A) 0.4 k/uL (0-0.7); Eosinophils % (A) 5 %; HCT 35.9 % (34.0-46.0); HGB 11.2 gm/dL (11.4-16.0); Lymphocytes # (A) 2.5 k/uL (1.0-4.8); Lymphocytes % (A) 30 %; MCH 27.5 pg (25.0-35.0); MCHC 31.1 g/dL (31.0-37.0); MCV 88.4 fL (80.0-100.0); Mean Platelet Volume 6.4; Monocytes # (A) 0.5 k/uL (0-1.0); Monocytes % (A) 5 %; Neutrophils # (A) 4.7 k/uL (1.3-7.7); Neutrophils % (A) 56 %; Platelet Count 566 k/uL (150-450); RBC 4.06 m/uL (3.80-5.40); RDW 12.9 % (11.5-15.5); WBC 8.4 k/uL (3.8-10.6)
[2017-04-18 16:08] LABS: Anion Gap 10 mmol/L; Blood Urea Nitrogen 16 mg/dL (7-17); Calcium 9.5 mg/dL (8.4-10.2); Carbon Dioxide 29 mmol/L (22-30); Chloride 99 mmol/L (98-107); Glucose 96 mg/dL (74-99); Potassium 3.8 mmol/L (3.5-5.1); Sodium 138 mmol/L (137-145)
== END | disposition home or self-care (01) ==
LOC: LABWHC1 15:17
PROVIDERS: ATTEND Family Medicine
DX: D64.9 Anemia, unspecified (principal)
CPT/HCPCS: 36415; 80048; 85025

== ENCOUNTER → 2017-07-02 | Outpatient (CLI) | payer MEDICAID ==
[2017-07-02 12:24] LABS: Basophils # (A) 0.1 k/uL (0-0.2); Basophils % (A) 1 %; Eosinophils # (A) 0.4 k/uL (0-0.7); Eosinophils % (A) 5 %; HCT 39.4 % (34.0-46.0); HGB 13.2 gm/dL (11.4-16.0); Lymphocytes # (A) 2.6 k/uL (1.0-4.8); Lymphocytes % (A) 34 %; MCHC 33.5 g/dL (31.0-37.0); MCV 83.5 fL (80.0-100.0); Mean Platelet Volume 6.2; Monocytes # (A) 0.4 k/uL (0-1.0); Monocytes % (A) 5 %; Neutrophils # (A) 4.2 k/uL (1.3-7.7); Neutrophils % (A) 54 %; Platelet Count 360 k/uL (150-450); RBC 4.72 m/uL (3.80-5.40); RDW 13.4 % (11.5-15.5); WBC 7.8 k/uL (3.8-10.6)
[2017-07-03 02:19] LABS: Iron Saturation 19.82 (12.00-45.00)
== END | disposition home or self-care (01) ==
LOC: LABWHC1 11:38
PROVIDERS: ATTEND Family Medicine
DX: Z00.00 Encounter for general adult medical examination without abnormal findings (principal); E03.9 Hypothyroidism, unspecified
CPT/HCPCS: 36415; 82728; 82747; 83540; 83550; 84443; 84481; 85025

== ENCOUNTER → 2017-07-31 | Outpatient (CLI) | payer MEDICAID ==
--- NOTE | 2017-08-01 13:23 | BD ---
EXAMINATION TYPE: Axial Bone Density DATE OF EXAM: 07/31/2017 COMPARISON: NONE CLINICAL HISTORY: Postmenopausal female. Osteoporosis screening. Height: Weight: 159.3 FRAX RISK QUESTIONS: Alcohol (3 or more units per day): no Family History (Parent hip fracture): no Glucocorticoids (More than 3mos): (Ex: prednisone, prednisolone, methylprednisolone, dexamethasone, and hydrocortisone). History of Fracture in Adulthood: no Secondary Osteoporosis: 1. Type 1 Diabetes: no 2. Hyperthyroidism: no 3. Menopause before 45: no 4. Malnutrition: no 5. Chronic liver disease: no Rheumatoid Arthritis: no Current Tobacco Use: no RISK FACTORS HISTORY OF: Family History of Osteoporosis: no Active: yes Diet low in dairy products/other sources of calcium: no Postmenopausal woman: Lost more than 2 inches in height since high school: no Adrenal Insufficiency: no MEDICATIONS: actalade, zyrtec Prednisone or other steroids: currently taking for a sinus infection Thyroid Medications: armour thyroid How Lon years Additional History: EXAM MEASUREMENTS: Bone mineral densitometry was performed using the BandPage System. Bone mineral density as measured about the Lumbar spine is: ----- L1-L4(G/cm2): 1.143 T Score Values are as follows: ----- L2: -0.3 ----- L3: -0.1 ----- L4: -0.6 ----- L1-L4: -0.3 Bone mineral density has: decreased -11.0 % since study of: 11.01.2011 Bone mineral density about the R hip (g/cm2): 0.914 Bone mineral density about the L hip (g/cm2): 0.873 T Score values are as follows: -----R Neck: -0.9 -----L Neck: -1.2 -----R Total: -0.8 -----L Total: -1.2 Bone mineral density has: decreased -6.1 % since study of: 11.01.2011 IMPRESSION: Osteopenia (T Score between -2.5 and -1) with respect to the left femur. There is slightly increased risk of fracture and the patient may be considered for treatment. Re-Screen 2-5 years. NOTE: T-SCORE=SD OF THE YOUNG ADULT MEAN.
== END | disposition home or self-care (01) ==
LOC: RADBDWWP 16:08
PROVIDERS: ATTEND Family Medicine
DX: M85.88 Other specified disorders of bone density and structure, other site (principal); Z78.0 Asymptomatic menopausal state
CPT/HCPCS: 77080

== ENCOUNTER → 2017-11-28 | Outpatient (CLI) | payer MEDICAID ==
[2017-11-28 17:47] LABS: Basophils # (A) 0.1 k/uL (0-0.2); Basophils % (A) 1 %; Eosinophils # (A) 0.3 k/uL (0-0.7); Eosinophils % (A) 3 %; HCT 28.5 % (34.0-46.0); HGB 9.5 gm/dL (11.4-16.0); Lymphocytes # (A) 2.1 k/uL (1.0-4.8); Lymphocytes % (A) 23 %; MCH 28.1 pg (25.0-35.0); MCHC 33.4 g/dL (31.0-37.0); MCV 84.1 fL (80.0-100.0); Mean Platelet Volume 6.6; Monocytes # (A) 0.6 k/uL (0-1.0); Monocytes % (A) 6 %; Neutrophils # (A) 6.2 k/uL (1.3-7.7); Neutrophils % (A) 66 %; Platelet Count 427 k/uL (150-450); RBC 3.39 m/uL (3.80-5.40); RDW 12.4 % (11.5-15.5); WBC 9.4 k/uL (3.8-10.6)
[2017-11-28 18:06] LABS: Albumin 3.6 g/dL (3.5-5.0); Calcium 8.8 mg/dL (8.4-10.2); Potassium 5.5 mmol/L (3.5-5.1); Total Bilirubin 0.3 mg/dL (0.2-1.3); Total Protein 6.7 g/dL (6.3-8.2)
[2017-11-28 18:18] LABS: T4, Free (Free Thyroxine) 0.75 ng/dL (0.78-2.19)
[2017-11-29 05:18] LABS: EBV-VCA (IgG) >8.0 AI
== END ==
LOC: LABWHC1 16:54
PROVIDERS: ATTEND Physician Assistant
DX: R53.83 Other fatigue (principal)
CPT/HCPCS: 36415; 80053; 84439; 84443; 84481; 85025; 86618; 86644; 86645; 86663; 86664; 86665; 87086

== ENCOUNTER 2017-11-29 15:56 | Inpatient (IN) | payer MEDICAID ==
[2017-11-29 16:38] LABS: Amorphous Sediment,Urine Occasional /hpf; Appearance,Urine Clear (Clear); Bilirubin,Urine Negative (Negative); Blood,Urine Large (Negative); Color,Urine Light Yellow; Glucose,Urine (UA) Negative (Negative); Granular Casts,Urine 1 /lpf (0); Hyaline Casts,Urine 3 /lpf (0-2); Ketones,Urine Negative (Negative); Leukocyte Esterase,Urine Large (Negative); Mucus,Urine Few /hpf; Nitrite,Urine Negative (Negative); Protein,Urine 1+ (Negative); RBC,Urine 48 /hpf (0-5); Specific Gravity,Urine 1.008 (1.001-1.035); Squamous Epithelial Cell,Urine 1 /hpf (0-4); Urobilinogen,Urine <2.0 mg/dL (<2.0); WBC,Urine 16 /hpf (0-5)
[2017-11-29 18:07] LABS: Basophils # (A) 0.1 k/uL (0-0.2); Basophils % (A) 1 %; Eosinophils # (A) 0.4 k/uL (0-0.7); Eosinophils % (A) 4 %; HCT 30.2 % (34.0-46.0); HGB 10.2 gm/dL (11.4-16.0); Lymphocytes # (A) 2.2 k/uL (1.0-4.8); Lymphocytes % (A) 21 %; MCH 28.3 pg (25.0-35.0); MCHC 33.6 g/dL (31.0-37.0); MCV 84.2 fL (80.0-100.0); Mean Platelet Volume 6.5; Monocytes # (A) 0.6 k/uL (0-1.0); Monocytes % (A) 6 %; Neutrophils # (A) 6.8 k/uL (1.3-7.7); Neutrophils % (A) 67 %; Platelet Count 478 k/uL (150-450); RBC 3.59 m/uL (3.80-5.40); RDW 12.5 % (11.5-15.5); WBC 10.1 k/uL (3.8-10.6)
[2017-11-29 18:16] LABS: Albumin 3.9 g/dL (3.5-5.0); Calcium 9.1 mg/dL (8.4-10.2); Potassium 5.7 mmol/L (3.5-5.1); Total Bilirubin 0.4 mg/dL (0.2-1.3); Total Protein 7.2 g/dL (6.3-8.2)
[2017-11-29] MEDS ORDERED: NALOXONE 0.4 MG/ML 1 ML VIAL IV PRN (19:25)
[2017-11-29] MEDS ORDERED: ONDANSETRON 4 MG/2 ML VIAL IVP PRN (19:25)
--- NOTE | 2017-11-29 19:25 | ED ---
General Adult HPI - General Chief complaint: Urogenital Stated complaint: Abnormal Labs Time Seen by Provider: 11/29/17 17:14 Source: patient, RN notes reviewed, old records reviewed Mode of arrival: ambulatory Limitations: no limitations - History of Present Illness Initial comments: Patient is a 62-year-old female presenting to the emergency room today with chief complaint of body aches over the last 23 weeks. Patient does admit that she wouldn't family doctor yesterday was diagnosed with urinary tract infection. She states she did not take the antibiotics yet. She states that she did have blood work obtained. She states she was called today and told that her kidney function was elevated Here to the emergency room. She does admit that appetites been somewhat dull over the last few weeks that she's not been feeling well. Denies any fevers but states she's had chills at times. Patient denies any other complaints or symptoms. Patient denies any recent fever , chills, shortness of breath, chest pain, back pain, abdominal pain, nausea or vomiting, numbness or tingling, headaches or visual changes, or any other complaints. - Related Data Home Medications Medication Instructions Recorded Confirmed Multivitamins, Thera [Multivitamin] 1 tab PO DAILY 07/07/15 11/29/17 Vitamin B Complex 1 cap PO DAILY 07/07/15 11/29/17 Zafirlukast [Accolate] 20 mg PO DAILY 07/08/15 11/29/17 Ascorbic Acid [Vitamin C] 1,000 mg PO DAILY 03/22/17 11/29/17 Biotin 5,000 mcg PO DAILY 03/22/17 11/29/17 Cetirizine HCl [Zyrtec] 10 mg PO HS 03/22/17 11/29/17 Ferrous Sulfate [Feosol] 325 mg PO DAILY 03/22/17 11/29/17 Thyroid,Pork [[place] Thyroid] 90 mg PO DAILY 04/01/17 11/29/17 Magnesium 200 mg PO DAILY 11/29/17 11/29/17 Allergies Allergy/AdvReac Type Severity Reaction Status Date / Time ciprofloxacin [From Cipro] Allergy c-diff Verified 11/29/17 18:01 ciprofloxacin HCl Allergy Diarrhea Verified 11/29/17 18:01 [From Cipro] gemifloxacin mesylate Allergy Rash/Hives Verified 11/29/17 18:01 [From Factive] Penicillins Allergy Rash/Hives Verified 11/29/17 18:01 Sulfa (Sulfonamide Allergy Rash/Hives Verified 11/29/17 18:01 Antibiotics) wheat Allergy Anaphylaxis Verified 11/29/17 18:01 codeine AdvReac constipatio Verified 11/29/17 18:01 n Review of Systems ROS Statement: Those systems with pertinent positive or pertinent negative responses have been documented in the HPI. ROS Other: All systems not noted in ROS Statement are negative. Past Medical History Past Medical History: Thyroid Disorder Additional Past Medical History / Comment(s): Migranes and Sandrine's disease History of Any Multi-Drug Resistant Organisms: None Reported Past Surgical History: Ear Surgery, Tubal Ligation, Uterine Ablation Additional Past Surgical History / Comment(s): Cardioversion Mar 2016,varicose vein procedure, x2, left total knee Past Anesthesia/Blood Transfusion Reactions: No Reported Reaction Additional Past Anesthesia/Blood Transfusion Reaction / Comment(s): no blood transfusion hx Past Psychological History: No Psychological Hx Reported Smoking Status: Former smoker Past Alcohol Use History: Occasional Past Drug Use History: None Reported - Past Family History Mother Family Medical History: Cancer Father Family Medical History: Cancer General Exam - General Exam Comments Initial Comments: General: The patient is awake and alert, in no distress, and does not appear acutely ill. Eye: Pupils are equal, round and reactive to light. Extra-ocular movements are intact. No nystagmus. There is normal conjunctiva bilaterally. No signs of icterus. Ears, nose, mouth and throat: There are moist mucous membranes and no oral lesions. Neck: The neck is supple, there is no tenderness or JVD. Cardiovascular: There is a regular rate and rhythm. No murmur, rub or gallop is appreciated. Respiratory: Lungs are clear to auscultation, respirations are non-labored, breath sounds are equal. No wheezes, stridor, rales, or rhonchi. Musculoskeletal: Normal ROM, no tenderness. Sensation intact. Strength 5/5. Pulses equal bilaterally 2+. Neurological: A&O x 3. CN II-XII intact, There are no obvious motor or sensory deficits. Coordination appears grossly intact. Speech is normal. Skin: Skin is warm and dry and no rashes or lesions are noted. Psychiatric: Cooperative, appropriate mood & affect, normal judgment. Limitations: no limitations Course Vital Signs 11/29/17 11/29/17 16:04 18:53 Temperature 98.3 F Pulse Rate 81 82 Respiratory 18 18 Rate Blood Pressure 156/78 147/76 O2 Sat by Pulse 99 99 Oximetry Medical Decision Making - Medical Decision Making Patient reexamined at this time shows no signs of distress is resting comfortably. Patient's labs been reviewed reviewed and does show elevation of BUN/creatinine which appears new compared to her old labs prior to yesterday. Patient's potassium is 5.7. EKG is reviewed and there is no acute changes. Results were discussed with the patient. Case was discussed with nurse practitioner Sebas Rubin will accept admission for Dr. Funes. - Lab Data Result diagrams: 11/29/17 17:50 11/29/17 17:50 Lab Results 11/29/17 11/29/17 11/29/17 Range/Units 16:10 17:50 17:50 WBC 10.1 (3.8-10.6) k/uL RBC 3.59 L (3.80-5.40) m/uL Hgb 10.2 L (11.4-16.0) gm/dL Hct 30.2 L (34.0-46.0) % MCV 84.2 (80.0-100.0) fL MCH 28.3 (25.0-35.0) pg MCHC 33.6 (31.0-37.0) g/dL RDW 12.5 (11.5-15.5) % Plt Count 478 H (150-450) k/uL Neutrophils % 67 % Lymphocytes % 21 % Monocytes % 6 % Eosinophils % 4 % Basophils % 1 % Neutrophils # 6.8 (1.3-7.7) k/uL Lymphocytes # 2.2 (1.0-4.8) k/uL Monocytes # 0.6 (0-1.0) k/uL Eosinophils # 0.4 (0-0.7) k/uL Basophils # 0.1 (0-0.2) k/uL Sodium 140 (137-145) mmol/L Potassium 5.7 H (3.5-5.1) mmol/L Chloride 106 (98-107) mmol/L Carbon Dioxide 21 L (22-30) mmol/L Anion Gap 13 mmol/L BUN 53 H (7-17) mg/dL Creatinine 4.71 H (0.52-1.04) mg/dL Est GFR (CKD-EPI)AfAm 11 (>60 ml/min/1.73 sqM) Est GFR (CKD-EPI)NonAf 9 (>60 ml/min/1.73 sqM) Glucose 90 (74-99) mg/dL Calcium 9.1 (8.4-10.2) mg/dL Total Bilirubin 0.4 (0.2-1.3) mg/dL AST 20 (14-36) U/L ALT 16 (9-52) U/L Alkaline Phosphatase 131 H (38-126) U/L Total Protein 7.2 (6.3-8.2) g/dL Albumin 3.9 (3.5-5.0) g/dL Amylase 146 H (30-110) U/L Lipase 179 (23-300) U/L Urine Color Light Yellow Urine Appearance Clear (Clear) Urine pH 6.0 (5.0-8.0) Ur Specific [place] 1.008 (1.001-1.035) Urine Protein 1+ H (Negative) Urine Glucose (UA) Negative (Negative) Urine Ketones Negative (Negative) Urine Blood Large H (Negative) Urine Nitrite Negative (Negative) Urine Bilirubin Negative (Negative) Urine Urobilinogen <2.0 (<2.0) mg/dL Ur Leukocyte Esterase Large H (Negative) Urine RBC 48 H (0-5) /hpf Urine WBC 16 H (0-5) /hpf Ur Squamous Epith Cells 1 (0-4) /hpf Amorphous Sediment Occasional H (None) /hpf Hyaline Casts 3 H (0-2) /lpf Granular Casts 1 (0) /lpf Urine Mucus Few H (None) /hpf Disposition Clinical Impression: NONI (acute kidney injury), UTI (urinary tract infection) Disposition: ADMITTED IP TO THIS HOSP Condition: Good Is patient prescribed a controlled substance at d/c from ED?: No Referrals: Oswald Mike MD [Primary Care Provider] - 1-2 days Time of Disposition: 19:24
[2017-11-29] MEDS ORDERED: SODIUM CHLORIDE 0.9% 1,000 ML IV STA (19:27)
[2017-11-29] MEDS: SODIUM CHLORIDE 0.9% 1,000 ML IV SCH (19:48)
[2017-11-29 22:00] VITALS: BMI 22.9
[2017-11-29] MEDS: ACETAMINOPHEN TAB 325 MG TAB PO PRN (22:18)
[2017-11-30] MEDS: SODIUM CHLORIDE 0.9% 1,000 ML IV SCH (05:45)
[2017-11-30] MEDS: ACETAMINOPHEN TAB 325 MG TAB PO PRN ×2 (05:46→22:10)
[2017-11-30 06:51] LABS: Basophils # (A) 0.1 k/uL (0-0.2); Basophils % (A) 1 %; Eosinophils # (A) 0.4 k/uL (0-0.7); Eosinophils % (A) 5 %; HCT 27.7 % (34.0-46.0); HGB 8.9 gm/dL (11.4-16.0); Lymphocytes # (A) 1.6 k/uL (1.0-4.8); Lymphocytes % (A) 20 %; MCH 27.9 pg (25.0-35.0); MCHC 32.2 g/dL (31.0-37.0); MCV 86.7 fL (80.0-100.0); Mean Platelet Volume 6.5; Monocytes # (A) 0.6 k/uL (0-1.0); Monocytes % (A) 7 %; Neutrophils # (A) 5.2 k/uL (1.3-7.7); Neutrophils % (A) 65 %; Platelet Count 366 k/uL (150-450); RBC 3.19 m/uL (3.80-5.40); RDW 12.6 % (11.5-15.5); WBC 7.9 k/uL (3.8-10.6)
[2017-11-30 07:06] LABS: Albumin 3.1 g/dL (3.5-5.0); Calcium 8.8 mg/dL (8.4-10.2); Potassium 5.5 mmol/L (3.5-5.1); Total Bilirubin 0.3 mg/dL (0.2-1.3); Total Protein 5.9 g/dL (6.3-8.2)
[2017-11-30] MEDS ORDERED: SODIUM POLYSTYRENE SULFONATE 15 GM/60 ML BOTTLE PO STA (09:13)
[2017-11-30] MEDS: DEXTROSE 5% IN WATER 1,000 ML with SODIUM BICARB (1 MEQ/ML) 100 ML IV SCH ×2 (10:28→23:34)
--- NOTE | 2017-11-30 11:37 | P.HPIM ---
History of Present Illness Patient is a pleasant 62-year-old female came in with complaints of generalized body aches. Patient was sent here from prior PCPs office because of acute renal failure patient's baseline creatinine around 0.8 and now around 4.5. Patient has not been feeling well since earlier this month. Because of which she has been not taking Motrin 200 mg twice a day. Patient denied any fever chills. Patient initially had oliguria followed by excess urination. Patient denied any dysuria denied any fever chills doesn't have any leukocytosis. Patient was complaining of some headache no photophobia no cough no runny nose no signs or symptoms of sepsis at this time. Review of Systems REVIEW OF SYSTEMS: CONSTITUTIONAL: As mentioned above HEENT: No recent visual problems or hearing problems. Denied any sore throat. CARDIOVASCULAR: No chest pain, orthopnea, PND, no palpitations, no syncope. PULMONARY: No shortness of breath, no cough, no hemoptysis. GASTROINTESTINAL: No diarrhea, no nausea, no vomiting, no abdominal pain. Normoactive bowel sounds. NEUROLOGICAL: No headaches, no weakness, no numbness. HEMATOLOGICAL: Denies any bleeding or petechiae. GENITOURINARY: Denies any burning micturition, or urgency. MUSCULOSKELETAL/RHEUMATOLOGICAL: Denies any joint pain, swelling, or any muscle pain. ENDOCRINE: Denies any polyuria or polydipsia. The rest of the 14-point review of systems is negative. 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 Date of last positivie culture/infection: 1985 MDRO Source:: stool Past Surgical History: Ear Surgery, Tubal Ligation, Uterine Ablation Additional Past Surgical History / Comment(s): Cardioversion Mar 2016,varicose vein procedure, x2, left total knee Past Anesthesia/Blood Transfusion Reactions: No Reported Reaction Additional Past Anesthesia/Blood Transfusion Reaction / Comment(s): no blood transfusion hx Past Psychological History: No Psychological Hx Reported Smoking Status: Former smoker Past Alcohol Use History: Occasional Additional Past Alcohol Use History / Comment(s): quit smoking 1993, smoked approx 14 yrs-<1ppd Past Drug Use History: None Reported - Past Family History Mother Family Medical History: Cancer Father Family Medical History: Cancer Medications and Allergies Home Medications Medication Instructions Recorded Confirmed Type Multivitamins, Thera [Multivitamin] 1 tab PO DAILY 07/07/15 11/29/17 History Vitamin B Complex 1 cap PO DAILY 07/07/15 11/29/17 History Zafirlukast [Accolate] 20 mg PO DAILY 07/08/15 11/29/17 History Ascorbic Acid [Vitamin C] 1,000 mg PO DAILY 03/22/17 11/29/17 History Biotin 5,000 mcg PO DAILY 03/22/17 11/29/17 History Cetirizine HCl [Zyrtec] 10 mg PO HS 03/22/17 11/29/17 History Ferrous Sulfate [Feosol] 325 mg PO DAILY 03/22/17 11/29/17 History Thyroid,Pork [[place] Thyroid] 90 mg PO DAILY 04/01/17 11/29/17 History Magnesium 200 mg PO DAILY 11/29/17 11/29/17 History Allergies Allergy/AdvReac Type Severity Reaction Status Date / Time ciprofloxacin [From Cipro] Allergy c-diff Verified 11/29/17 18:01 ciprofloxacin HCl Allergy Diarrhea Verified 11/29/17 18:01 [From Cipro] gemifloxacin mesylate Allergy Rash/Hives Verified 11/29/17 18:01 [From Factive] Penicillins Allergy Rash/Hives Verified 11/29/17 18:01 Sulfa (Sulfonamide Allergy Rash/Hives Verified 11/29/17 18:01 Antibiotics) wheat Allergy Anaphylaxis Verified 11/29/17 18:01 codeine AdvReac constipatio Verified 11/29/17 18:01 n Physical Exam Vitals: Vital Signs Temp Pulse Pulse Resp BP BP Pulse Ox 11/30/17 05:00 96.7 F L 64 16 144/68 98 11/29/17 21:51 96.7 F L 76 16 150/76 93 L 11/29/17 20:39 97.9 F 74 16 164/73 99 11/29/17 18:53 82 18 147/76 99 11/29/17 16:04 98.3 F 81 18 156/78 99 Intake and Output 11/29/17 11/30/17 11/30/17 22:59 06:59 14:59 Intake Total 700 Balance 700 Intake: Intake, IV Titration 700 Amount Sodium Chloride 0.9% 1, 700 000 ml @ 100 mls/hr IV . Q10H [facility] Rx#:[id number] Other: Voiding Method Toilet Toilet # Voids 2 Weight 72.575 kg PHYSICAL EXAMINATION: GENERAL: The patient is alert and oriented x3, not in any acute distress. Well developed, well nourished. HEENT: Pupils are round and equally reacting to light. EOMI. No scleral icterus. No conjunctival pallor. Normocephalic, atraumatic. No pharyngeal erythema. No thyromegaly. CARDIOVASCULAR: S1 and S2 present. No murmurs, rubs, or gallops. PULMONARY: Chest is clear to auscultation, no wheezing or crackles. ABDOMEN: Soft, nontender, nondistended, normoactive bowel sounds. No palpable organomegaly. MUSCULOSKELETAL: No joint swelling or deformity. EXTREMITIES: No cyanosis, clubbing, or pedal edema. NEUROLOGICAL: Gross neurological examination did not reveal any focal deficits. SKIN: No rashes. Results CBC & Chem 7: 11/30/17 06:26 11/30/17 06:26 Labs: Abnormal Lab Results - Last 24 Hours (Table) 11/29/17 11/29/17 11/29/17 Range/Units 16:10 17:50 17:50 RBC 3.59 L (3.80-5.40) m/uL Hgb 10.2 L (11.4-16.0) gm/dL Hct 30.2 L (34.0-46.0) % Plt Count 478 H (150-450) k/uL Potassium 5.7 H (3.5-5.1) mmol/L Chloride (98-107) mmol/L Carbon Dioxide 21 L (22-30) mmol/L BUN 53 H (7-17) mg/dL Creatinine 4.71 H (0.52-1.04) mg/dL Alkaline Phosphatase 131 H (38-126) U/L Total Protein (6.3-8.2) g/dL Albumin (3.5-5.0) g/dL Amylase 146 H (30-110) U/L Urine Protein 1+ H (Negative) Urine Blood Large H (Negative) Ur Leukocyte Esterase Large H (Negative) Urine RBC 48 H (0-5) /hpf Urine WBC 16 H (0-5) /hpf Amorphous Sediment Occasional H (None) /hpf Hyaline Casts 3 H (0-2) /lpf Urine Mucus Few H (None) /hpf 11/30/17 11/30/17 Range/Units 06:26 06:26 RBC 3.19 L (3.80-5.40) m/uL Hgb 8.9 L (11.4-16.0) gm/dL Hct 27.7 L (34.0-46.0) % Plt Count (150-450) k/uL Potassium 5.5 H (3.5-5.1) mmol/L Chloride 113 H (98-107) mmol/L Carbon Dioxide 18 L (22-30) mmol/L BUN 47 H (7-17) mg/dL Creatinine 4.71 H (0.52-1.04) mg/dL Alkaline Phosphatase (38-126) U/L Total Protein 5.9 L (6.3-8.2) g/dL Albumin 3.1 L (3.5-5.0) g/dL Amylase (30-110) U/L Urine Protein (Negative) Urine Blood (Negative) Ur Leukocyte Esterase (Negative) Urine RBC (0-5) /hpf Urine WBC (0-5) /hpf Amorphous Sediment (None) /hpf Hyaline Casts (0-2) /lpf Urine Mucus (None) /hpf Thrombosis Risk Factor Assmnt - Choose All That Apply Any of the Below Risk Factors Present?: No Other Risk Factors: Yes Each Risk Factor Represents 2 Points: Age 61-74 years Other congenital or acquired thrombophilia - If yes, enter type in comment: No Thrombosis Risk Factor Assessment Total Risk Factor Score: 2 Thrombosis Risk Factor Assessment Level: Low Risk Assessment and Plan Plan: -Acute renal failure: Probably nonoliguric acute tubular necrosis there may be a contribution from nonsteroidal anti-inflammatory medications. We will obtain ultrasound of the kidney, urine is still feels urine random sodium urine random creatinine nephrology will be consulted. IV fluids will be switched to D5 water with the bicarbonate. -Hyperkalemia: Secondary to acute renal failure -Anion gap and non-anion gap metabolic acidosis secondary to renal failure, uremia along with hyperchloremia. -Possibility of urinary tract infection cannot be completely ruled out although my suspicion is low patient is on Rocephin which will be continued for now -Chronic anemia further evaluation as an outpatient etiology is not known
[2017-11-30] MEDS: BUTALB/APAP/CAFF 50-325-40MG TAB PO PRN (11:44)
--- NOTE | 2017-11-30 15:30 | US ---
EXAMINATION TYPE: US kidneys/renal and bladder DATE OF EXAM: 11/30/2017 COMPARISON: NONE CLINICAL HISTORY: NONI. EXAM MEASUREMENTS: Right Kidney: 13.5 x 4.3 x 5.4 cm Left Kidney: 12.8 x 5.3 x 5.4 cm Right Kidney: Increased echogenicity, decreased corticomedullary differentiation. Measures large. No hydronephrosis or masses seen . Left Kidney: Increased echogenicity, decreased corticomedullary differentiation. Measures large. No h ydronephrosis or masses seen . Bladder: Decompressed as Pt recently used restroom There is no evidence for hydronephrosis at this point in time. No nephrolithiasis is seen. No deedee s are identified. The urinary bladder is anechoic. IMPRESSION: Findings are suggestive of medical renal disease.
[2017-12-01] MEDS: BUTALB/APAP/CAFF 50-325-40MG TAB PO PRN ×2 (04:46→09:47)
[2017-12-01 07:40] LABS: HCT 26.1 % (34.0-46.0); HGB 8.4 gm/dL (11.4-16.0); MCH 27.5 pg (25.0-35.0); MCHC 32.3 g/dL (31.0-37.0); Mean Platelet Volume 6.7; Platelet Count 355 k/uL (150-450); RBC 3.07 m/uL (3.80-5.40); RDW 12.4 % (11.5-15.5); WBC 8.7 k/uL (3.8-10.6)
[2017-12-01] MEDS: THYROID, PORK 30 MG TAB PO SCH (07:55)
[2017-12-01 08:44] LABS: Calcium 8.7 mg/dL (8.4-10.2); Potassium 4.9 mmol/L (3.5-5.1)
--- NOTE | 2017-12-01 09:55 | P.PN ---
Subjective Patient is a pleasant 62-year-old female came in with complaints of generalized body aches. Patient was sent here from prior PCPs office because of acute renal failure patient's baseline creatinine around 0.8 and now around 4.5. Patient has not been feeling well since earlier this month. Because of which she has been not taking Motrin 200 mg twice a day. Patient denied any fever chills. Patient initially had oliguria followed by excess urination. Patient denied any dysuria denied any fever chills doesn't have any leukocytosis. Patient was complaining of some headache no photophobia no cough no runny nose no signs or symptoms of sepsis at this time. 12/01/2017 Patient still in me she has not been eating well and she's been feeling sick for the last month with generalized weakness and feeling hot associated with a few days of increasing frequency and urgency of her urination but no dysuria or lower abdominal pain. No new back pain. She didn't check her temperature and she does not report fever. No other abdominal pain. No chest pain or dyspnea. No change in bowel habits. Patient states she has some nausea but no vomiting. Patient complains from headache, the frontal area nonradiating nonspecific about 5-6/10 in severity controlled by furosemide. Patient was noticed to have high blood pressure. States that her blood pressure always on the low side with systolic around 110. And she has not been taking any antihypertensive. Currently her blood pressure is around 160-170 systolic. And started on Norvasc. Bleach Maker has been consulted. UA suggestive of infection patient was started on ceftriaxone. No UC. Urine culture is ordered Objective - Vital Signs Vital signs: Vital Signs Temp 98.1 F 12/01/17 05:25 Pulse 63 12/01/17 05:25 Resp 18 12/01/17 05:25 BP 178/82 12/01/17 05:25 Pulse Ox 97 12/01/17 05:25 Intake & Output 11/30/17 12/01/17 12/01/17 18:59 06:59 18:59 Intake Total 850 Balance 850 Intake: Intake, IV Titration 650 Amount Dextrose 5% in Water 1, 650 000 ml @ 75 mls/hr IV . [id number] MARTIN with Sodium Bicarb (1 Meq/ml) 100 ml Rx#:[id number] Oral 200 Other: Voiding Method Toilet Toilet Toilet # Voids 3 1 # Bowel Movements 2 - Exam GENERAL: The patient is alert and oriented x3, not in any acute distress. Well developed, well nourished. HEENT: Pupils are round and equally reacting to light. EOMI. No scleral icterus. No conjunctival pallor. Normocephalic, atraumatic. No pharyngeal erythema. No thyromegaly. CARDIOVASCULAR: S1 and S2 present. No murmurs, rubs, or gallops. PULMONARY: Chest is clear to auscultation, no wheezing or crackles. ABDOMEN: Soft, nontender, nondistended, normoactive bowel sounds. No palpable organomegaly. MUSCULOSKELETAL: No joint swelling or deformity. EXTREMITIES: No cyanosis, clubbing, or pedal edema. NEUROLOGICAL: Gross neurological examination did not reveal any focal deficits. SKIN: No rashes. - Labs CBC & Chem 7: 12/01/17 07:01 12/01/17 07:01 Labs: Abnormal Lab Results - Last 24 Hours (Table) 12/01/17 12/01/17 Range/Units 07:01 07:01 RBC 3.07 L (3.80-5.40) m/uL Hgb 8.4 L (11.4-16.0) gm/dL Hct 26.1 L (34.0-46.0) % BUN 50 H (7-17) mg/dL Creatinine 4.81 H (0.52-1.04) mg/dL Assessment and Plan Plan: -Acute renal failure: Probably nonoliguric acute tubular necrosis there may be a contribution from nonsteroidal anti-inflammatory medications. ultrasound of the kidney: Unremarkable with no hydronephrosis, nephrology consult. c/w IV fluids -Hyperkalemia: Secondary to acute renal failure, resolved -Anion gap and non-anion gap metabolic acidosis secondary to renal failure, uremia along with hyperchloremia. -Possibility of urinary tract infection cannot be completely ruled out although my suspicion is low patient is on Rocephin which will be continued for now -Chronic anemia further evaluation as an outpatient etiology is not known -Hypertension: New onset. start Norvasc. Problems and management plan discussed with the patient and she agrees DVT prophylaxis: Heparin GI prophylaxis: Pepcid Prognosis is guarded
[2017-12-01] MEDS: amLODIPine 5 MG TAB PO SCH (10:39)
--- NOTE | 2017-12-01 11:40 | P.NPCON ---
History of Present Illness - Reason for Consult acute renal failure - History of Present Illness Reason for consultation: Acute kidney injury History of present illness: Patient is a 62-year-old female seen in renal consultation for acute kidney injury. Patient's creatinine in April 2017 was near 1 and was elevated at 4.7 this admission. It is 4.81 today. Patient is in the hospital with generalized body aches. Patient also admits to urine with foul odor. She admits to taking Motrin twice daily for body aches since the beginning of the month. She denies any history of kidney disease. Denies any family history of kidney disease. She denies any hematuria or dysuria. No vomiting or diarrhea but states her appetite has been poor. She is currently maintained on D5 with 2 g of sodium bicarbonate running at 75 mL an hour. Renal ultrasound showed normal-sized kidneys with cortical thinning such as of underlying kidney disease. Denies fever or chills. No melena or hematochezia. No abdominal pain. She is starting to feel better. Hemodynamically stable. Vital signs are stable. General: The patient appeared well nourished and normally developed. HEENT: Head exam is unremarkable. Neck is without jugular venous distension. LUNGS: Lungs are clear to auscultation and percussion. Breath sounds decreased. HEART: Rate and Rhythm are regular. First and second heart sounds normal. No murmurs, rubs or gallops. ABDOMEN: Abdominal exam reveals normal bowel sounds. Non-tender and non- distended. No evidence of peritonitis. EXTREMITITES: No clubbing, cyanosis, or edema. 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 Date of last positivie culture/infection: 1985 MDRO Source:: stool Past Surgical History: Ear Surgery, Tubal Ligation, Uterine Ablation Additional Past Surgical History / Comment(s): Cardioversion Mar 2016,varicose vein procedure, x2, left total knee Past Anesthesia/Blood Transfusion Reactions: No Reported Reaction Additional Past Anesthesia/Blood Transfusion Reaction / Comment(s): no blood transfusion hx Past Psychological History: No Psychological Hx Reported Smoking Status: Former smoker Past Alcohol Use History: Occasional Additional Past Alcohol Use History / Comment(s): quit smoking 1993, smoked approx 14 yrs-<1ppd Past Drug Use History: None Reported - Past Family History Mother Family Medical History: Cancer Father Family Medical History: Cancer Medications and Allergies Home Medications Medication Instructions Recorded Confirmed Type Multivitamins, Thera [Multivitamin] 1 tab PO DAILY 07/07/15 11/29/17 History Vitamin B Complex 1 cap PO DAILY 07/07/15 11/29/17 History Zafirlukast [Accolate] 20 mg PO DAILY 07/08/15 11/29/17 History Ascorbic Acid [Vitamin C] 1,000 mg PO DAILY 03/22/17 11/29/17 History Biotin 5,000 mcg PO DAILY 03/22/17 11/29/17 History Cetirizine HCl [Zyrtec] 10 mg PO HS 03/22/17 11/29/17 History Ferrous Sulfate [Feosol] 325 mg PO DAILY 03/22/17 11/29/17 History Thyroid,Pork [[place] Thyroid] 90 mg PO DAILY 04/01/17 11/29/17 History Magnesium 200 mg PO DAILY 11/29/17 11/29/17 History Allergies Allergy/AdvReac Type Severity Reaction Status Date / Time ciprofloxacin [From Cipro] Allergy c-diff Verified 11/29/17 18:01 ciprofloxacin HCl Allergy Diarrhea Verified 11/29/17 18:01 [From Cipro] gemifloxacin mesylate Allergy Rash/Hives Verified 11/29/17 18:01 [From Factive] Penicillins Allergy Rash/Hives Verified 11/29/17 18:01 Sulfa (Sulfonamide Allergy Rash/Hives Verified 11/29/17 18:01 Antibiotics) wheat Allergy Anaphylaxis Verified 11/29/17 18:01 codeine AdvReac constipatio Verified 11/29/17 18:01 n Physical Exam Vitals: Vital Signs Temp Pulse Resp BP Pulse Ox 12/01/17 10:40 56 L 180/74 12/01/17 05:25 98.1 F 63 18 178/82 97 12/01/17 00:10 136/70 11/30/17 20:30 98.7 F 61 18 165/79 100 11/30/17 16:30 98 F 65 16 132/67 97 Intake and Output 11/30/17 12/01/17 12/01/17 22:59 06:59 14:59 Intake Total 200 650 Balance 200 650 Intake: Intake, IV Titration 650 Amount Dextrose 5% in Water 1, 650 000 ml @ 75 mls/hr IV . [id number] MARTIN with Sodium Bicarb (1 Meq/ml) 100 ml Rx#:[id number] Oral 200 Other: Voiding Method Toilet Toilet Toilet # Voids 1 1 Results - Lab Results Most recent lab results Calcium 8.7 mg/dL (8.4-10.2) 12/01/17 07:01 12/01/17 07:01 12/01/17 07:01 Assessment and Plan Plan: Assessment: 1. Nonoliguric acute kidney injury secondary to ATN secondary to nonsteroidals. Creatinine 4.7 on admission and is up to 4.81 today. Rule out urinary retention. No evidence of hydronephrosis noted on renal ultrasound. 2. Metabolic acidosis secondary to acute kidney injury. 3. Hyperkalemia secondary to acute kidney injury and metabolic acidosis. 4. Anemia. Rule out iron deficiency. 5. UTI maintained on antibiotics. Urine culture pending. Plan: Discontinue bicarbonate drip. Start normal saline at 100 mL an hour. Add oral sodium bicarbonate 650 mg twice daily. Follow-up urine culture. Check postvoid residual to make sure no underlying urinary retention. Encouraged oral intake. Repeat electrolytes in the morning. Thank you for the consultation. I will continue to follow the patient with you during her hospital stay.
[2017-12-01] MEDS: SODIUM CHLORIDE 0.9% 1,000 ML IV SCH ×2 (12:23→21:06)
[2017-12-01] MEDS: SODIUM BICARBONATE TAB 650 MG TAB PO SCH ×2 (12:23→21:05)
[2017-12-01] MEDS: ACETAMINOPHEN TAB 325 MG TAB PO PRN (17:26)
[2017-12-01] MEDS: MONTELUKAST 10 MG TAB PO SCH (21:05)
[2017-12-02] MEDS: SODIUM CHLORIDE 0.9% 1,000 ML IV SCH ×2 (05:52→16:43)
[2017-12-02 08:00] LABS: Basophils # (A) 0.1 k/uL (0-0.2); Basophils % (A) 1 %; Eosinophils # (A) 0.2 k/uL (0-0.7); Eosinophils % (A) 2 %; HCT 27.5 % (34.0-46.0); HGB 8.9 gm/dL (11.4-16.0); Lymphocytes # (A) 1.8 k/uL (1.0-4.8); Lymphocytes % (A) 23 %; MCH 27.6 pg (25.0-35.0); MCHC 32.6 g/dL (31.0-37.0); MCV 84.8 fL (80.0-100.0); Mean Platelet Volume 6.6; Monocytes # (A) 0.6 k/uL (0-1.0); Monocytes % (A) 8 %; Neutrophils # (A) 5.3 k/uL (1.3-7.7); Neutrophils % (A) 66 %; Platelet Count 393 k/uL (150-450); RBC 3.24 m/uL (3.80-5.40); RDW 12.4 % (11.5-15.5)
[2017-12-02] MEDS: BUTALB/APAP/CAFF 50-325-40MG TAB PO PRN (08:11)
[2017-12-02 08:33] LABS: Calcium 8.9 mg/dL (8.4-10.2); Potassium 4.7 mmol/L (3.5-5.1)
--- NOTE | 2017-12-02 09:15 | P.PN ---
Subjective Patient is seen in follow-up for acute kidney injury. Her baseline creatinine is near 1 and was elevated at 4.71 on admission. It is up to 4.91 today. She is maintained on normal saline at 100 mL an hour. Patient has started taking Motrin twice daily since the beginning of November for aches. Patient states her urine is more clear since admission. No hematuria. Did have an episode of vomiting this morning. Oral intake is fair. Vital signs are stable. General: The patient appeared well nourished and normally developed. HEENT: Head exam is unremarkable. Neck is without jugular venous distension. LUNGS: Lungs are clear to auscultation and percussion. Breath sounds decreased. HEART: Rate and Rhythm are regular. First and second heart sounds normal. No murmurs, rubs or gallops. ABDOMEN: Abdominal exam reveals normal bowel sounds. Non-tender and non- distended. No evidence of peritonitis. EXTREMITITES: No clubbing, cyanosis, or edema. Objective - Vital Signs Vital signs: Vital Signs Temp 98.0 F 12/02/17 05:00 Pulse 73 12/02/17 05:00 Resp 16 12/02/17 05:00 BP 154/74 12/02/17 05:00 Pulse Ox 93 L 12/02/17 05:00 Intake & Output 12/01/17 12/02/17 12/02/17 18:59 06:59 18:59 Intake Total 2100 Output Total 50 Balance -50 2100 Intake: Intake, IV Titration 800 Amount Sodium Chloride 0.9% 1, 800 000 ml @ 100 mls/hr IV . Q10H MARTIN Rx#:[id number] Oral 1300 Output: Post Void Residual 50 Other: Voiding Method Toilet Toilet # Voids 3 2 - Labs CBC & Chem 7: 12/02/17 07:30 12/02/17 07:30 Labs: Abnormal Lab Results - Last 24 Hours (Table) 12/02/17 12/02/17 Range/Units 07:30 07:30 RBC 3.24 L (3.80-5.40) m/uL Hgb 8.9 L (11.4-16.0) gm/dL Hct 27.5 L (34.0-46.0) % Chloride 110 H (98-107) mmol/L Carbon Dioxide 21 L (22-30) mmol/L BUN 42 H (7-17) mg/dL Creatinine 4.91 H (0.52-1.04) mg/dL Microbiology - Last 24 Hours (Table) 12/01/17 11:32 Urine Culture - Preliminary Urine,Clean Catch Assessment and Plan Plan: Assessment: 1. Nonoliguric acute kidney injury secondary to ATN secondary to nonsteroidals. Creatinine 4.7 on admission and is up to 4.91 today. No evidence of urinary retention. No evidence of hydronephrosis noted on renal ultrasound. Urine eosinophils positive at 3%. Rule out GN. 2. Metabolic acidosis secondary to acute kidney injury. 3. Hyperkalemia secondary to acute kidney injury and metabolic acidosis. Resolved. 4. Anemia. Rule out iron deficiency. 5. UTI maintained on antibiotics. Urine culture pending. Plan: Maintain normal saline at 100 mL an hour. Continue oral sodium bicarbonate 650 mg twice daily. Follow-up urine culture. Encouraged oral intake. Repeat electrolytes in the morning. Check serologies. Add prednisone 40 mg daily. Pending further workup and her renal function, will consider kidney biopsy. Iron studies pending.
[2017-12-02] MEDS: amLODIPine 5 MG TAB PO SCH (09:47)
[2017-12-02] MEDS: SODIUM BICARBONATE TAB 650 MG TAB PO SCH ×2 (09:47→19:59)
[2017-12-02] MEDS: THYROID, PORK 30 MG TAB PO SCH (09:47)
[2017-12-02 10:24] LABS: Iron Saturation 7.91 (12.00-45.00)
[2017-12-02] MEDS: predniSONE 20 MG TAB PO SCH (10:42)
[2017-12-02] MEDS ORDERED: amLODIPine 5 MG TAB PO STA (11:09)
--- NOTE | 2017-12-02 11:13 | P.PN ---
Subjective Patient is a pleasant 62-year-old female came in with complaints of generalized body aches. Patient was sent here from prior PCPs office because of acute renal failure patient's baseline creatinine around 0.8 and now around 4.5. Patient has not been feeling well since earlier this month. Because of which she has been not taking Motrin 200 mg twice a day. Patient denied any fever chills. Patient initially had oliguria followed by excess urination. Patient denied any dysuria denied any fever chills doesn't have any leukocytosis. Patient was complaining of some headache no photophobia no cough no runny nose no signs or symptoms of sepsis at this time. 12/01/2017 Patient still in me she has not been eating well and she's been feeling sick for the last month with generalized weakness and feeling hot associated with a few days of increasing frequency and urgency of her urination but no dysuria or lower abdominal pain. No new back pain. She didn't check her temperature and she does not report fever. No other abdominal pain. No chest pain or dyspnea. No change in bowel habits. Patient states she has some nausea but no vomiting. Patient complains from headache, the frontal area nonradiating nonspecific about 5-6/10 in severity controlled by furosemide. Patient was noticed to have high blood pressure. States that her blood pressure always on the low side with systolic around 110. And she has not been taking any antihypertensive. Currently her blood pressure is around 160-170 systolic. And star toño on Norvasc. Sludge Filtration Operator has been consulted. UA suggestive of infection patient was started on ceftriaxone. No UC. Urine culture is ordered 12/02/2017 As per nephrology evaluation patient was with acute kidney injury mostly secondary to the NSAID use, as patient has been using ibuprofen twice a day sincerely November Patient still feels generally weak, she denies dysuria however she has increased frequency of urination she states that she please every 2 hours. And short she's being good amount. Patient thinks it's now is foul-smelling. A shunt has headache in the morning which is resolved, she still have high blood pressure on the high side at 154/74, however it's better controlled after starting Norvasc 5, we will increase Norvasc to 10 mg. Patient with no other pains. No nausea vomiting. Physical therapist and the patient therapist evaluation is already ordered. Nephrology follow-up is appreciated they were advised steroids prednisone 40 mg. With possible evaluation with kidney biopsy Medication with doses are reviewed, including: Tylenol 650, Fioricet 50/325/40, Norvasc 10 mg, Rocephin 1000 mg, Singulair 5 mg, prednisone 40 mg daily, sodium bicarbonate tablets 650 mg and armour thyroid 90 mg Objective - Vital Signs Vital signs: Vital Signs Temp 98.0 F 12/02/17 05:00 Pulse 73 12/02/17 05:00 Resp 16 12/02/17 05:00 BP 154/74 12/02/17 05:00 Pulse Ox 93 L 12/02/17 05:00 Intake & Output 12/01/17 12/02/17 12/02/17 18:59 06:59 18:59 Intake Total 2100 Output Total 50 Balance -50 2100 Intake: Intake, IV Titration 800 Amount Sodium Chloride 0.9% 1, 800 000 ml @ 100 mls/hr IV . Q10H MARTIN Rx#:[id number] Oral 1300 Output: Post Void Residual 50 Other: Voiding Method Toilet Toilet # Voids 3 2 - Exam GENERAL: The patient is alert and oriented x3, not in any acute distress. Well developed, well nourished. HEENT: Pupils are round and equally reacting to light. EOMI. No scleral icterus. No conjunctival pallor. Normocephalic, atraumatic. No pharyngeal erythema. No thyromegaly. CARDIOVASCULAR: S1 and S2 present. No murmurs, rubs, or gallops. PULMONARY: Chest is clear to auscultation, no wheezing or crackles. ABDOMEN: Soft, nontender, nondistended, normoactive bowel sounds. No palpable organomegaly. MUSCULOSKELETAL: No joint swelling or deformity. EXTREMITIES: No cyanosis, clubbing, or pedal edema. NEUROLOGICAL: Gross neurological examination did not reveal any focal deficits. SKIN: No rashes. - Labs CBC & Chem 7: 12/02/17 07:30 12/02/17 07:30 Labs: Abnormal Lab Results - Last 24 Hours (Table) 12/01/17 12/02/17 12/02/17 Range/Units 07:01 07:30 07:30 RBC 3.24 L (3.80-5.40) m/uL Hgb 8.9 L (11.4-16.0) gm/dL Hct 27.5 L (34.0-46.0) % Chloride 110 H (98-107) mmol/L Carbon Dioxide 21 L (22-30) mmol/L BUN 42 H (7-17) mg/dL Creatinine 4.91 H (0.52-1.04) mg/dL Iron 17 L (50-170) ug/dL TIBC 215 L (228-460) ug/dL Iron Saturation 7.91 L (12.00-45.00) Ferritin 375.3 H (10.0-291.0) ng/mL Microbiology - Last 24 Hours (Table) 12/01/17 11:32 Urine Culture - Preliminary Urine,Clean Catch Assessment and Plan Plan: -Acute renal failure: Probably nonoliguric acute tubular necrosis there may be a contribution from nonsteroidal anti-inflammatory medications. ultrasound of the kidney: Unremarkable with no hydronephrosis, nephrology consult. c/w IV fluids . Continue with steroids. Possible biopsy of the kidney were nephrology -Hyperkalemia: Secondary to acute renal failure, resolved -Anion gap and non-anion gap metabolic acidosis secondary to renal failure, uremia along with hyperchloremia. -Possibility of urinary tract infection cannot be completely ruled out although my suspicion is low patient is on Rocephin which will be continued for now -Chronic anemia further evaluation as an outpatient etiology is not known -Hypertension: Norvasc 10 mg Problems and management plan discussed with the patient and she agrees DVT prophylaxis: Heparin GI prophylaxis: Pepcid Prognosis is guarded
[2017-12-02 17:11] LABS: DNA Double-Stranded NEGATIVE (NEGATIVE)
[2017-12-02 19:56] LABS: Hepatitis A Antibody IgM Non-Reactive (Non-Reactive); Hepatitis B Core IgM Non-Reactive (Non-Reactive)
[2017-12-02] MEDS: MONTELUKAST 10 MG TAB PO SCH (19:59)
[2017-12-03] MEDS: SODIUM CHLORIDE 0.9% 1,000 ML IV SCH ×2 (02:15→18:39)
[2017-12-03 08:23] LABS: Basophils # (A) 0.1 k/uL (0-0.2); Basophils % (A) 1 %; Eosinophils # (A) 0.1 k/uL (0-0.7); Eosinophils % (A) 1 %; HCT 27.9 % (34.0-46.0); HGB 9.1 gm/dL (11.4-16.0); Lymphocytes # (A) 2.4 k/uL (1.0-4.8); Lymphocytes % (A) 20 %; MCH 28.3 pg (25.0-35.0); MCHC 32.7 g/dL (31.0-37.0); MCV 86.6 fL (80.0-100.0); Mean Platelet Volume 6.4; Monocytes # (A) 0.7 k/uL (0-1.0); Monocytes % (A) 6 %; Neutrophils # (A) 8.4 k/uL (1.3-7.7); Neutrophils % (A) 71 %; Platelet Count 429 k/uL (150-450); RBC 3.23 m/uL (3.80-5.40); RDW 12.3 % (11.5-15.5); WBC 11.8 k/uL (3.8-10.6)
[2017-12-03] MEDS: THYROID, PORK 30 MG TAB PO SCH (08:27)
[2017-12-03] MEDS: BUTALB/APAP/CAFF 50-325-40MG TAB PO PRN (08:27)
[2017-12-03] MEDS: predniSONE 20 MG TAB PO SCH (08:27)
[2017-12-03] MEDS: SODIUM BICARBONATE TAB 650 MG TAB PO SCH ×2 (08:27→21:02)
[2017-12-03] MEDS: amLODIPine 10 MG TAB PO SCH (08:27)
[2017-12-03 08:44] LABS: Calcium 8.7 mg/dL (8.4-10.2); Phosphorus 5.1 mg/dL (2.5-4.5); Potassium 4.2 mmol/L (3.5-5.1)
[2017-12-03] MEDS ORDERED: SODIUM FERRIC GLUCONAT-SUCROSE 125 MG in SODIUM CHLORIDE 0.9% 100 ML IVPB SCH (11:00)
--- NOTE | 2017-12-03 11:18 | P.PN ---
Subjective Patient is seen in follow-up for acute kidney injury. Her baseline creatinine is near 1 and peaked at 4.9 on this admission - 4.83 today. She is maintained on normal saline at 75 mL an hour. Patient had started taking Motrin twice daily since the beginning of November for aches. Patient states her urine is more clear since admission. No hematuria. Denies vomiting or diarrhea. Oral intake is fair. Admits to swelling in her hands. Also admits to bloating. She had a hard time sleeping last night. Vital signs are stable. General: The patient appeared well nourished and normally developed. HEENT: Head exam is unremarkable. Neck is without jugular venous distension. LUNGS: Lungs are clear to auscultation and percussion. Breath sounds decreased. HEART: Rate and Rhythm are regular. First and second heart sounds normal. No murmurs, rubs or gallops. ABDOMEN: Abdominal exam reveals normal bowel sounds. Non-tender and non- distended. No evidence of peritonitis. EXTREMITITES: No clubbing, cyanosis, or edema. Objective - Vital Signs Vital signs: Vital Signs Temp 97.5 F L 12/03/17 05:00 Pulse 59 L 12/03/17 05:00 Resp 16 12/03/17 05:00 BP 144/68 12/03/17 05:00 Pulse Ox 100 12/03/17 05:00 Intake & Output 12/02/17 12/03/17 12/03/17 18:59 06:59 18:59 Intake Total 850 2220 Balance 850 2220 Weight 72.575 kg Intake: Intake, IV Titration 850 800 Amount Sodium Chloride 0.9% 1, 800 800 000 ml @ 100 mls/hr IV . Q10H MARTIN Rx#:[id number] cefTRIAXone 1,000 mg In 50 Sodium Chloride 0.9% 50 ml @ 100 mls/hr IVPB Q24HR MARTIN Rx#:[id number] Oral 1420 Other: Voiding Method Toilet Toilet Diaper Diaper # Voids 2 - Labs CBC & Chem 7: 12/03/17 08:00 12/03/17 08:00 Labs: Abnormal Lab Results - Last 24 Hours (Table) 12/02/17 12/02/17 12/03/17 Range/Units 11:06 11:30 08:00 WBC 11.8 H (3.8-10.6) k/uL RBC 3.23 L (3.80-5.40) m/uL Hgb 9.1 L (11.4-16.0) gm/dL Hct 27.9 L (34.0-46.0) % Neutrophils # 8.4 H (1.3-7.7) k/uL Chloride (98-107) mmol/L Carbon Dioxide (22-30) mmol/L BUN (7-17) mg/dL Creatinine (0.52-1.04) mg/dL Phosphorus (2.5-4.5) mg/dL Total Protein (PEP) 6.0 L (6.2-8.2) g/dL U Random Total Protein 88 H (<12) mg/dL 12/03/17 Range/Units 08:00 WBC (3.8-10.6) k/uL RBC (3.80-5.40) m/uL Hgb (11.4-16.0) gm/dL Hct (34.0-46.0) % Neutrophils # (1.3-7.7) k/uL Chloride 109 H (98-107) mmol/L Carbon Dioxide 20 L (22-30) mmol/L BUN 43 H (7-17) mg/dL Creatinine 4.83 H (0.52-1.04) mg/dL Phosphorus 5.1 H (2.5-4.5) mg/dL Total Protein (PEP) (6.2-8.2) g/dL U Random Total Protein (<12) mg/dL Microbiology - Last 24 Hours (Table) 12/01/17 11:32 Urine Culture - Final Urine,Clean Catch Assessment and Plan Plan: Assessment: 1. Nonoliguric acute kidney injury secondary to ATN secondary to nonsteroidals. Creatinine 4.7 on admission and peaked at 4.91 this admission - slightly better at 4.83 today. No evidence of urinary retention. No evidence of hydronephrosis noted on renal ultrasound. Urine eosinophils positive at 3%. Rule out GN. 2. Metabolic acidosis secondary to acute kidney injury. 3. Hyperkalemia secondary to acute kidney injury and metabolic acidosis. Resolved. 4. Anemia. Iron deficiency noted. 5. UTI maintained on antibiotics. Urine culture pending. Plan: Decreased normal saline to 50 mL an hour. Continue oral sodium bicarbonate 650 mg twice daily. Follow-up urine culture. Encouraged oral intake. Repeat electrolytes in the morning. Follow-up pending serologies. So far negative. Maintain prednisone 40 mg daily - started December 02. Pending further workup and her renal function, will consider kidney biopsy. Ferrlecit 125 mg IV daily for 3 days. First dose today. Check chest x-ray.
[2017-12-03] MEDS ORDERED: ZOLPIDEM 5 MG TAB PO PRN (13:47)
--- NOTE | 2017-12-03 15:25 | XR ---
EXAMINATION TYPE: XR chest 1V DATE OF EXAM: 12/03/2017 COMPARISON: NONE HISTORY: Shortness of breath TECHNIQUE: Single frontal view of the chest is obtained. FINDINGS: The heart is mildly enlarged. There is no overt failure or pneumothorax. No pleural effusi on. Curvature the spine noted. IMPRESSION: No acute process.
[2017-12-03] MEDS: SODIUM FERRIC GLUCONAT-SUCROSE 125 MG in SODIUM CHLORIDE 0.9% 100 ML IVPB SCH (15:30)
[2017-12-03 17:41] LABS: Albumin 3.13 g/dL (3.80-4.90); Gamma Globulin 0.78 g/dL (0.70-1.50)
--- NOTE | 2017-12-03 19:02 | PN ---
PROGRESS NOTE DATE OF SERVICE: 12/03/2017. PRESENTING COMPLAINT: Weak and tired. INTERVAL HISTORY: This patient presented with acute renal failure. Had normal renal function back in June of this year. Creatinine has remained to be elevated. Getting some IV fluids. Also hemoglobin has dropped. The patient has noticed some dark stools. The patient does feel weak and tired, though up to the bathroom. The patient's son and daughter are in the room. REVIEW OF SYSTEMS: Done for constitutional, cardiovascular, GI, pulmonary; relevant findings as above. CURRENT MEDICATIONS: Reviewed, that include: 1. Norvasc. 2. IV ceftriaxone. 3. Singulair. 4. Prednisone. 5. Sodium bicarb. 6. [place] thyroid. 7. Normal saline at 50 mL an hour. PHYSICAL EXAMINATION: Temperature 97.7, pulse 62, respirations 16, blood pressure 139/73, pulse 96 percent on room air. GENERAL APPEARANCE: Average build, lying in bed, tired appearing. EYES: Pupils equal. Conjunctivae pale. HEENT: External nose and ears normal. Oral cavity normal. NECK: JVD not raised. Mass not palpable. Respiratory effort normal. LUNGS: Fair air entry. CARDIOVASCULAR: First and second sounds. No edema. ABDOMEN: Soft, nontender. Liver and spleen not palpable. PSYCHIATRY: Alert, oriented x3. Mood and affect normal. INVESTIGATIONS: White count 11.8, hemoglobin 9.1, potassium 4.2, chloride 109, bicarb 20, BUN 43, creatinine 4.83, phosphorus 5.1. ASSESSMENT: 1. Acute nonoliguric acute renal failure, likely acute tubular necrosis. The patient had been taking NSAIDs. Slow to respond. 2. Metabolic acidosis from acute renal failure. 3. Hypochloremia. 4. Hyperphosphatemia due to renal failure. 5. Iron deficiency anemia. Rule out GI source. 6. Hypothyroidism. 7. Intermittent asthma, controlled. 8. Essential hypertension. 9. Acute urinary tract infection, probably from cystitis. PLAN: The patient will be put on steroids in the form of prednisone. May switch the patient to LR given hypochloremia. Other medications to continue. Will give Lovenox for DVT prophylaxis. The patient also being treated for UTI. Care was discussed with the patient. Also consultation by GI is being done for a possible EGD/colonoscopy. MMODL / IJN: [id number] /
[2017-12-03] MEDS: MONTELUKAST 10 MG TAB PO SCH (21:01)
[2017-12-04] MEDS: BUTALB/APAP/CAFF 50-325-40MG TAB PO PRN ×2 (06:17→13:47)
[2017-12-04 07:29] LABS: Basophils % (A) 0 %; Eosinophils # (A) 0.1 k/uL (0-0.7); Eosinophils % (A) 1 %; HCT 25.5 % (34.0-46.0); HGB 8.4 gm/dL (11.4-16.0); Lymphocytes # (A) 2.5 k/uL (1.0-4.8); Lymphocytes % (A) 23 %; MCH 28.4 pg (25.0-35.0); MCV 86.1 fL (80.0-100.0); Mean Platelet Volume 6.8; Monocytes # (A) 0.6 k/uL (0-1.0); Monocytes % (A) 6 %; Neutrophils # (A) 7.4 k/uL (1.3-7.7); Neutrophils % (A) 69 %; Platelet Count 372 k/uL (150-450); RBC 2.96 m/uL (3.80-5.40); RDW 12.5 % (11.5-15.5); WBC 10.7 k/uL (3.8-10.6)
[2017-12-04] MEDS: predniSONE 20 MG TAB PO SCH (07:53)
[2017-12-04] MEDS: SODIUM BICARBONATE TAB 650 MG TAB PO SCH ×2 (07:53→22:02)
[2017-12-04] MEDS: THYROID, PORK 30 MG TAB PO SCH (07:53)
[2017-12-04] MEDS: amLODIPine 10 MG TAB PO SCH (07:54)
[2017-12-04 07:58] LABS: Calcium 8.6 mg/dL (8.4-10.2); Potassium 4.2 mmol/L (3.5-5.1)
--- NOTE | 2017-12-04 11:12 | P.PN ---
Subjective Patient is seen in follow-up for acute kidney injury. Her baseline creatinine is near 1 and was 4.71 on admission - up to 5.04 today. She is maintained on normal saline at 50 mL an hour. Patient had started taking Motrin twice daily since the beginning of November for aches. Patient states her urine is more clear since admission. No hematuria. Denies vomiting or diarrhea. Oral intake is fair. Admits to swelling in her hands and feet. Also admits to bloating. Vital signs are stable. General: The patient appeared well nourished and normally developed. HEENT: Head exam is unremarkable. Neck is without jugular venous distension. LUNGS: Lungs are clear to auscultation and percussion. Breath sounds decreased. HEART: Rate and Rhythm are regular. First and second heart sounds normal. No murmurs, rubs or gallops. ABDOMEN: Abdominal exam reveals normal bowel sounds. Non-tender and non- distended. No evidence of peritonitis. EXTREMITITES: No clubbing, cyanosis, or edema. Objective - Vital Signs Vital signs: Vital Signs Temp 98.2 F 12/04/17 04:09 Pulse 69 12/04/17 04:09 Resp 16 12/04/17 04:09 BP 164/74 12/04/17 04:09 Pulse Ox 96 12/04/17 04:09 Intake & Output 12/03/17 12/04/17 12/04/17 18:59 06:59 18:59 Intake Total 1000 550 Balance 1000 550 Intake: IV 400 Sodium Chloride 0.9% 1, 400 000 ml @ 50 mls/hr IV . Q20H [facility] Rx#:[id number] Intake, IV Titration 1000 150 Amount Sodium Chloride 0.9% 1, 900 150 000 ml @ 50 mls/hr IV . Q20H [facility] Rx#:[id number] Sodium Ferric Gluconat- 100 Sucrose 125 mg In Sodium Chloride 0.9% 100 ml @ 100 mls/hr IVPB Q24H [facility] Rx#:[id number] Other: Voiding Method Toilet Toilet Toilet Diaper # Voids 1 - Labs CBC & Chem 7: 12/04/17 07:10 12/04/17 07:10 Labs: Abnormal Lab Results - Last 24 Hours (Table) 12/02/17 12/02/17 12/04/17 Range/Units 11:06 11:06 07:10 WBC 10.7 H (3.8-10.6) k/uL RBC 2.96 L (3.80-5.40) m/uL Hgb 8.4 L (11.4-16.0) gm/dL Hct 25.5 L (34.0-46.0) % Chloride (98-107) mmol/L Carbon Dioxide (22-30) mmol/L BUN (7-17) mg/dL Creatinine (0.52-1.04) mg/dL Albumin (PEP) 3.13 L (3.80-4.90) g/dL Agspi-9-Rvbrcwzin 1.01 H (0.60-1.00) g/dL Tot Complement (CH50) >101 H (42 - 95) U/mL 12/04/17 Range/Units 07:10 WBC (3.8-10.6) k/uL RBC (3.80-5.40) m/uL Hgb (11.4-16.0) gm/dL Hct (34.0-46.0) % Chloride 112 H (98-107) mmol/L Carbon Dioxide 18 L (22-30) mmol/L BUN 47 H (7-17) mg/dL Creatinine 5.04 H (0.52-1.04) mg/dL Albumin (PEP) (3.80-4.90) g/dL Qjrhz-6-Dudjelzqg (0.60-1.00) g/dL Tot Complement (CH50) (42 - 95) U/mL Assessment and Plan Plan: Assessment: 1. Nonoliguric acute kidney injury secondary to ATN secondary to nonsteroidals. Creatinine 4.7 on admission and up to 5.04 today. No evidence of urinary retention. No evidence of hydronephrosis noted on renal ultrasound. Urine eosinophils positive at 3%. Rule out GN. 2. Metabolic acidosis secondary to acute kidney injury. 3. Hyperkalemia secondary to acute kidney injury and metabolic acidosis. Resolved. 4. Anemia. Iron deficiency noted. 5. UTI maintained on antibiotics. Urine culture pending. Plan: Maintain normal saline at 50 mL an hour. Increase oral bicarb to 1300 mg twice a day. Follow-up urine culture. Encouraged oral intake. Repeat electrolytes in the morning. Follow-up pending serologies. So far negative. Maintain prednisone 40 mg daily - started December 02. Ferrlecit 125 mg IV daily for 3 days. Second dose today. Schedule for a kidney biopsy. I will give her IV DDAVP one hour prior to the biopsy.
[2017-12-04] MEDS ORDERED: DESMOPRESSIN ACETATE 22 MCG in SODIUM CHLORIDE 0.9% 50 ML IVPB ONE (12:00)
[2017-12-04] MEDS ORDERED: BISACODYL 5 MG TABLET.DR PO STA (12:07)
--- NOTE | 2017-12-04 12:23 | P.CONS ---
History of Present Illness - Reason for Consult Consult date: 12/04/17 Anemia Requesting physician: Jordan Borja - Chief Complaint weakness body aches - History of Present Illness 62-year-old female patient of Dr. Mike employee at [employer] with a past medical history of iron deficiency anemia, celiac disease diagnosed by serology only, familial colon cancer (father), migraines and Sandrine's disease. Presents with multiple complaints including foul- smelling urine, generalized weakness abdominal bloatedness decreased appetite diffuse body aches over the last month. She is being evaluated by nephrology for acute UTI, nonoliguric kidney injury secondary to ATN and nonsteroidals. Ultrasound reported no evidence of hydronephrosis. Receiving steroids and IV iron. Patient's BUN/creatinine were elevated on admission 53 and 4.7. Presently BUN is 47. Creatinine 5.0. She is scheduled for kidney biopsy today. Consult requested for anemia. Admission hemoglobin 10.2. MCV 84. Platelet 478. Present hemoglobin is 8.4. Platelets 372. Patient was told about a year ago by her PCP that her iron studies were low she was placed on oral iron. Current iron indices iron 17. TIBC 215. Iron saturation 7.9% and ferritin 375. She has not required blood transfusions in the past. To her memory her baseline hemoglobin tends to be around 12. She denies overt bleeding such as hematemesis hematochezia or melena. No aspirin but was taking 400 mg of Motrin sometimes twice daily for the last month for generalized aches and pains. Denies dysphagia or odynophagia. Bowel movements appearing more dark but attributes it to oral iron. Increased abdominal bloatedness and decreased appetite over the last month. Denies weight loss but reports a 4-5 pound weight gain. No fever or chills. Endoscopic history: Colonoscopy performed by Dr. Roman about 8 years ago possible few polyps removed. No EGD. Review of Systems Constitutional: Denies fever, chills, sweats, reports mild weight gain, or loss. Generalized weakness fatigue 1 month. HEENT: Negative for migraines, blurred vision or loss, earaches, drainage, tinnitus, oral mucosal lesions, dysphagia, or odynophagia. CARDIAC: Negative for chest pain, arrhythmias, or palpitation. RESPIRATORY: Negative for shortness of breath, hemoptysis, cough, or sputum production. GI: See HPI for pertinent findings. : Negative for hematuria, urgency, frequency, polyuria, or dysuria. GYNc: Denies possibility of . Negative vaginal discharge. MUSCULOSKELETAL: Negative for muscle aches, swelling, arthritis, and arthralgias. NEUROLOGIC: Negative for stroke or TIA. ENDOCRINE: Negative for thyroid problems. SKIN: Negative for rash or itching. PSYCHIATRIC: Negative history for depression and anxiety Past Medical History Past Medical History: Asthma, Thyroid Disorder Additional Past Medical History / Comment(s): Migranes and Sandrine's disease, celiac History of Any Multi-Drug Resistant Organisms: None Reported Year Discovered:: None MDRO Source:: None Past Surgical History: Ear Surgery, Tubal Ligation, Uterine Ablation Additional Past Surgical History / Comment(s): Cardioversion Mar 2016,varicose vein procedure, x2, left total knee Past Anesthesia/Blood Transfusion Reactions: No Reported Reaction Additional Past Anesthesia/Blood Transfusion Reaction / Comm: no blood transfusion hx Past Psychological History: No Psychological Hx Reported Smoking Status: Former smoker Past Alcohol Use History: Occasional Additional Past Alcohol Use History / Comment(s): quit smoking 1993, smoked approx 14 yrs-<1ppd Past Drug Use History: None Reported - Past Family History Mother Family Medical History: Cancer Father Family Medical History: Cancer Medications and Allergies Home Medications Medication Instructions Recorded Confirmed Type Multivitamins, Thera [Multivitamin] 1 tab PO DAILY 07/07/15 11/29/17 History Vitamin B Complex 1 cap PO DAILY 07/07/15 11/29/17 History Zafirlukast [Accolate] 20 mg PO DAILY 07/08/15 11/29/17 History Ascorbic Acid [Vitamin C] 1,000 mg PO DAILY 03/22/17 11/29/17 History Biotin 5,000 mcg PO DAILY 03/22/17 11/29/17 History Cetirizine HCl [Zyrtec] 10 mg PO HS 03/22/17 11/29/17 History Ferrous Sulfate [Feosol] 325 mg PO DAILY 03/22/17 11/29/17 History Thyroid,Pork [Winston Thyroid] 90 mg PO DAILY 04/01/17 11/29/17 History Magnesium 200 mg PO DAILY 11/29/17 11/29/17 History Allergies Allergy/AdvReac Type Severity Reaction Status Date / Time ciprofloxacin [From Cipro] Allergy c-diff Verified 11/29/17 18:01 ciprofloxacin HCl Allergy Diarrhea Verified 11/29/17 18:01 [From Cipro] gemifloxacin mesylate Allergy Rash/Hives Verified 11/29/17 18:01 [From Factive] Penicillins Allergy Rash/Hives Verified 11/29/17 18:01 Sulfa (Sulfonamide Allergy Rash/Hives Verified 11/29/17 18:01 Antibiotics) wheat Allergy Anaphylaxis Verified 11/29/17 18:01 codeine AdvReac constipatio Verified 11/29/17 18:01 n Physical Exam Vitals: Vital Signs Temp Pulse Resp BP Pulse Ox 12/04/17 04:09 98.2 F 69 16 164/74 96 12/03/17 21:00 97.6 F 62 18 146/75 97 12/03/17 13:03 97.7 F 62 16 139/73 96 Intake and Output 12/03/17 12/04/17 12/04/17 22:59 06:59 14:59 Intake Total 550 Balance 550 Intake: IV 400 Sodium Chloride 0.9% 1, 400 000 ml @ 50 mls/hr IV . Q20H [facility] Rx#:[id number] Intake, IV Titration 150 Amount Sodium Chloride 0.9% 1, 150 000 ml @ 50 mls/hr IV . Q20H [facility] Rx#:[id number] Other: Voiding Method Toilet Toilet Toilet Diaper # Voids 1 General appearance: The patient is alert, oriented, in no acute distress. HET: Head is normocephalic and atraumatic. Pupils are equal and reactive. Oropharynx is clear without lesions. Neck: Supple without lymphadenopathy. Trachea midline. Heart: S1 S2. Regular rate and rhythm. Lungs: No crackles or wheezes are heard. Abdomen: Soft, nontender, mildly bloated with bowel sounds. No peritoneal signs. No palpable organomegaly or masses. Extremities: +1 bilateral lower extremity edema. Normal skin color and turgor. No cyanosis, rash, ulceration, clubbing, or edema. Radial and pedal pulses are 2/4 bilaterally. Neurological: No focal deficits. Strength and sensation are grossly intact. Results CBC & Chem 7: 12/04/17 07:10 12/04/17 07:10 Labs: Abnormal Lab Results - Last 24 Hours (Table) 12/02/17 12/02/17 12/04/17 Range/Units 11:06 11:06 07:10 WBC 10.7 H (3.8-10.6) k/uL RBC 2.96 L (3.80-5.40) m/uL Hgb 8.4 L (11.4-16.0) gm/dL Hct 25.5 L (34.0-46.0) % Chloride (98-107) mmol/L Carbon Dioxide (22-30) mmol/L BUN (7-17) mg/dL Creatinine (0.52-1.04) mg/dL Albumin (PEP) 3.13 L (3.80-4.90) g/dL Senbm-5-Zsjjcspah 1.01 H (0.60-1.00) g/dL Tot Complement (CH50) >101 H (42 - 95) U/mL 12/04/17 Range/Units 07:10 WBC (3.8-10.6) k/uL RBC (3.80-5.40) m/uL Hgb (11.4-16.0) gm/dL Hct (34.0-46.0) % Chloride 112 H (98-107) mmol/L Carbon Dioxide 18 L (22-30) mmol/L BUN 47 H (7-17) mg/dL Creatinine 5.04 H (0.52-1.04) mg/dL Albumin (PEP) (3.80-4.90) g/dL Dgojr-5-Bxuxyxhln (0.60-1.00) g/dL Tot Complement (CH50) (42 - 95) U/mL Assessment and Plan (1) Iron deficiency anemia Narrative/Plan: 62-year-old female with a history of iron deficiency anemia maintained on oral iron approximately 1 year, familial colon cancer and celiac disease diagnosed via serology, presents with 1 month history of generalized weakness decreased appetite generalized aches pains admitted with acute nonoliguric kidney injury ATN and UTI. Possible component of acute blood loss anemia presently no overt signs or symptoms of acute GI bleed. Obscure GI blood loss cannot be entirely excluded to account for her iron deficiency anemia. Current Visit: Yes Status: Acute Code(s): D50.9 - IRON DEFICIENCY ANEMIA, UNSPECIFIED SNOMED Code(s): 76841870 (2) History of celiac disease Current Visit: Yes Status: Acute Code(s): Z87.19 - PERSONAL HISTORY OF OTHER DISEASES OF THE DIGESTIVE SYSTEM SNOMED Code(s): 847712943 (3) Familial colorectal cancer Current Visit: Yes Status: Acute Code(s): C19 - MALIGNANT NEOPLASM OF RECTOSIGMOID JUNCTION SNOMED Code(s): 747139980 (4) NONI (acute kidney injury) Current Visit: Yes Status: Acute Code(s): N17.9 - ACUTE KIDNEY FAILURE, UNSPECIFIED SNOMED Code(s): 39964045 (5) UTI (urinary tract infection) Current Visit: Yes Status: Acute Code(s): N39.0 - URINARY TRACT INFECTION, SITE NOT SPECIFIED SNOMED Code(s): 06036558 Plan: 1. Kidney biopsy scheduled this afternoon. Clear liquid diet. Nothing by mouth after midnight. We'll proceed with EGD colonoscopy evaluation tomorrow. Patient requests Drs. Hudson/Jessy. 2. CBC PT/INR in a.m. The slipper maker has discussed the risks, benefits and alternative therapies for the above-mentioned procedure and for both sedation/analgesia as well as necessary blood product administration, if indicated, as they pertain to this patient. The patient has indicated understanding and acceptance of the risks and procedures discussed. Thank you for this kind referral and the opportunity to participate in the care of your patient. This consultation was discussed with Dr. Rivera. The impression and plan of care have been directed as dictated.
[2017-12-04 12:30] LABS: Prothrombin Time 10.1 sec (9.0-12.0)
[2017-12-04] MEDS: SODIUM FERRIC GLUCONAT-SUCROSE 125 MG in SODIUM CHLORIDE 0.9% 100 ML IVPB SCH (12:47)
[2017-12-04] MEDS: SODIUM CHLORIDE 0.9% 1,000 ML IV SCH (12:49)
[2017-12-04 15:12] LABS: C-ANCA <1:20 Titer (<1:20)
[2017-12-04] MEDS ORDERED: PEG 3350-NA SULF,BICARB,CL/KCL 4,000 ML BOTTLE PO ONE (16:00)
--- NOTE | 2017-12-04 18:28 | NM ---
EXAMINATION TYPE: NM pul vent and perfuse DATE OF EXAM: 12/04/2017 COMPARISON: Difficulty breathing HISTORY: TECHNIQUE: Utilizing inhalation of 35.5 mCi Tc 99m DTPA aerosol and intravenous injection of 5.24 mC i of Tc 99m MAA, ventilation and perfusion images are acquired post injection in multiple projections . FINDINGS: There are small matched defects at the lung apices. There is no ventilation/perfusion mismatch. There is no segmental type defect. IMPRESSION: There is a very low probability of pulmonary embolism. Evidence of minimal airway disease at the lung apices.
[2017-12-04] MEDS: MONTELUKAST 10 MG TAB PO SCH (22:03)
--- NOTE | 2017-12-04 23:21 | PN ---
PROGRESS NOTE DATE OF SERVICE: 12/04/2017 PRESENTING COMPLAINT: Tired. INTERVAL HISTORY: Patient presented with acute renal failure. No improvement in renal function. Kidney function was normal in June of this year. Creatinine continues to get worse. Patient has been feeling a little bit short of breath. GI was also consulted for some dark stools, pending endoscopy. Patient does complain of some shortness of breath. Patient's and daughter are present. REVIEW OF SYSTEMS: Done for constitutional, cardiovascular, GI, pulmonary; relevant findings as above. CURRENT MEDICATIONS: Reviewed. They include IV ceftriaxone. PHYSICAL EXAMINATION: Temperature 97.7, pulse 63, respiration 18, blood pressure 149/76, pulse ox 99% on room air. GENERAL APPEARANCE: Sitting up on a chair, tired-appearing. EYES: Pupils equal. Conjunctivae pale. HEENT: External appearance of nose and ears normal. Oral cavity normal. NECK: JVD not raised. Mass not palpable. RESPIRATORY: Effort normal. Lungs are clear. CARDIOVASCULAR: First and second sounds normal. Minimal edema on the feet. ABDOMEN: Soft, non-tender. Liver and spleen not palpable. PSYCHIATRY: Alert and oriented x3. Mood and affect normal. INVESTIGATIONS: White count 10.7, hemoglobin 8.4, potassium 4.2, BUN 47, creatinine 5.04, bicarb 18. Fecal occult stool is negative. Chest x-ray from yesterday does not show any fluid overload. ASSESSMENT: 1. Patient is complaining of shortness of breath; has not been much active. Will do a V/Q scan to rule out PE. 2. Non-oliguric acute renal failure, likely acute tubular necrosis, progressively getting worse. That could be a systematic cause of the same. 3. Metabolic acidosis from acute renal failure, slow to respond. 4. Hyperchloremia. 5. Hyperphosphatemia due to renal failure. 6. Iron deficiency anemia. Rule out GI source. 7. Hypothyroidism. 8. Intermittent asthma, controlled. 9. Essential hypertension. 10.Acute urinary tract infection, probably from cystitis. PLAN: Continue with antibiotics. V/Q scan was ordered and did come back showing low probability. Patient will also get iron transfusion. Did discuss earlier with Dr. Gallardo from Nephrology. Will get an opinion from Dr. Rivas. Patient was seen by Dr. Rivera, who will be doing an EGD and colonoscopy tomorrow. The patient has already had 3 days of IV antibiotics. No white count. No fever. Will stop the antibiotics for the UTI. Cultures have been negative. MMODL / IJN: [id number] /
[2017-12-05 07:50] LABS: INR 1.1 (<1.2); Prothrombin Time 10.5 sec (9.0-12.0)
[2017-12-05 08:21] LABS: Calcium 8.7 mg/dL (8.4-10.2); Potassium 4.2 mmol/L (3.5-5.1)
[2017-12-05] MEDS: amLODIPine 10 MG TAB PO SCH (10:22)
[2017-12-05] MEDS: BUTALB/APAP/CAFF 50-325-40MG TAB PO PRN ×2 (10:22→19:08)
[2017-12-05] MEDS: THYROID, PORK 30 MG TAB PO SCH (10:22)
[2017-12-05] MEDS: SODIUM BICARBONATE TAB 650 MG TAB PO SCH ×2 (10:22→21:22)
--- NOTE | 2017-12-05 10:45 | P.PN ---
Subjective Patient is seen in follow-up for acute kidney injury. Her baseline creatinine is near 1 and peaked at 5.04 this admission - down to 4.65 today. She is maintained on normal saline at 50 mL an hour. Patient had started taking Motrin twice daily since the beginning of November for aches. Patient states her urine is more clear since admission. No hematuria. Denies vomiting or diarrhea. Oral intake is fair. Admits to swelling in her hands and feet. Also admits to bloating. P-ANCA came back positive. Vital signs are stable. General: The patient appeared well nourished and normally developed. HEENT: Head exam is unremarkable. Neck is without jugular venous distension. LUNGS: Lungs are clear to auscultation and percussion. Breath sounds decreased. HEART: Rate and Rhythm are regular. First and second heart sounds normal. No murmurs, rubs or gallops. ABDOMEN: Abdominal exam reveals normal bowel sounds. Non-tender and non- distended. No evidence of peritonitis. EXTREMITITES: No clubbing, cyanosis, or edema. Objective - Vital Signs Vital signs: Vital Signs Temp 97.8 F 12/05/17 05:00 Pulse 64 12/05/17 05:00 Resp 16 12/05/17 05:00 BP 166/71 12/05/17 05:00 Pulse Ox 98 12/05/17 05:00 Intake & Output 12/04/17 12/05/17 12/05/17 18:59 06:59 18:59 Intake Total 1200 Balance 1200 Intake: IV 650 Sodium Chloride 0.9% 1, 650 000 ml @ 50 mls/hr IV . Q20H [id number] Rx#:[id number] Oral 550 Other: Voiding Method Toilet Toilet # Voids 2 2 # Bowel Movements 5 - Labs CBC & Chem 7: 12/04/17 07:10 12/05/17 07:02 Labs: Abnormal Lab Results - Last 24 Hours (Table) 12/02/17 12/05/17 Range/Units 11:06 07:02 Chloride 110 H (98-107) mmol/L Carbon Dioxide 21 L (22-30) mmol/L BUN 43 H (7-17) mg/dL Creatinine 4.65 H (0.52-1.04) mg/dL p-ANCA 1:320 H (<1:20) Titer Assessment and Plan Plan: Assessment: 1. 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 Creatinine peaked at 5.04 this admission and is 4.65 today. No evidence of urinary retention. No evidence of hydronephrosis noted on renal ultrasound. Urine eosinophils positive at 3%. 2. Metabolic acidosis secondary to acute kidney injury. Better. 3. Hyperkalemia secondary to acute kidney injury and metabolic acidosis. Resolved. 4. Anemia. Iron deficiency noted. GI following. Scheduled for EGD and colonoscopy today. 5. UTI maintained on antibiotics. No growth on urine culture so far. Plan: Maintain normal saline at 50 mL an hour. Maintain oral bicarb to 1300 mg twice a day. Follow-up urine culture. Encouraged oral intake. Repeat electrolytes in the morning. Ferrlecit 125 mg IV daily for 3 days. Third dose today. Kidney biopsy possibly today. I will give her IV DDAVP one hour prior to the biopsy. Discontinue oral prednisone. Start Solu-Medrol 1 g IV daily for 3 days. Once diagnosis confirmed with kidney biopsy, will treat her with Rituximab. Hepatitis negative. Also consult cardiology to rule out pericarditis as she's been complaining of chest discomfort at times.
[2017-12-05] MEDS: hydrALAZINE HCL 25 MG TAB PO SCH ×3 (11:02→23:00)
[2017-12-05] MEDS: predniSONE 20 MG TAB PO SCH (11:07)
[2017-12-05] MEDS ORDERED: DESMOPRESSIN ACETATE 22 MCG in SODIUM CHLORIDE 0.9% 50 ML IVPB ONE (12:00)
--- NOTE | 2017-12-05 13:11 | P.CRDCN ---
History of Present Illness History of present illness: Mrs. Sandra is a pleasant 62-year-old female past medical history significant for asthma, SVT, hypothyroid and miguel's disease. She denies history of coronary artery disease, hypertension, dyslipidemia or diabetes mellitus. She has followed in the office with Dr. Montoya after going into [facility]. She lives in [facility] and went to the hospital there in [place] and underwent successful cardiooversion back to sinus mechanism. We have been asked to see her in consultation for chest pain. She presented to the hospital 11/29 after having blood work done per her PCP as an outpatient revealed significant elevation of her kidney function. Creatinine on admission was 4.71 and peaked at 5.04. Today is 4.65. She is currently awaiting a kidney biopsy today or tomorrow. She states since coming to the hospital she has had shortness of breath. She describes it as a feeling of not being able to take in a deep breath. She denies chest pain, dizziness of palpitations. She is also feeling significant abdominal swelling and awaiting EGD/colonoscopy today. She denies PND, orthopnea or cough. EKG on admission 11/29 reveals sinus mechanism with inferior Q-waves with no acute ST or T-wave abnormalities. Repeat today reveals sinus mechanism with inferior Q-waves and non-specific ST abnormalities. Chest xray from 12/03 negative for an acute cardiopulmonary process. Laboratory data reviewed, hgb 8.4, plt 372, sodium 142, potassium 4.2, creatinine 4.65. Prior to arrival she was on no cardiac medications. Since admission she was started on amlodipine 10 mg daily and hydralazine 25 mg TID for elevated blood pressures. She is also on IV steroids. Review of Systems At the time of my exam: CONSTITUTIONAL: Denies fever. Denies chills. EYES: Denies blurred vision. Denies vision changes. Denies eye pain. EARS, NOSE, MOUTH & THROAT: Denies headache. Denies sore throat. Denies ear pain. CARDIOVASCULAR: Denies chest pain. Complains of intermittent shortness of breath. Denies orthopnea. Denies PND. Denies palpitations. RESPIRATORY: Denies cough. GASTROINTESTINAL: Complains of abdominal bloating. Denies abdominal pain. Denies diarrhea. Denies constipation. Denies nausea. Denies vomiting. MUSCULOSKELETAL: Denies myalgias. INTEGUMENTARY: Denies pruitis. Denies rash. NEUROLOGIC: Denies numbness. Denies tingling. Denies weakness. PSYCHIATRIC: Denies anxiety. Denies depression. ENDOCRINE: Denies fatigue. Denies weight change. Denies polydipsia. Denies polyurina. GENITOURINARY: Denies burning, hematuria or urgency with micturation. HEMATOLOGIC: Denies history of anemia. Denies bleeding. Past Medical History Past Medical History: Asthma, Thyroid Disorder Additional Past Medical History / Comment(s): Migranes and Miguel's disease, celiac History of Any Multi-Drug Resistant Organisms: None Reported Date of last positivie culture/infection: None MDRO Source:: None Past Surgical History: Ear Surgery, Tubal Ligation, Uterine Ablation Additional Past Surgical History / Comment(s): Cardioversion Mar 2016,varicose vein procedure, x2, left total knee Past Anesthesia/Blood Transfusion Reactions: No Reported Reaction Additional Past Anesthesia/Blood Transfusion Reaction / Comment(s): no blood transfusion hx Past Psychological History: No Psychological Hx Reported Smoking Status: Former smoker Past Alcohol Use History: Occasional Additional Past Alcohol Use History / Comment(s): quit smoking 1993, smoked approx 14 yrs-<1ppd Past Drug Use History: None Reported - Past Family History Mother Family Medical History: Cancer Father Family Medical History: Cancer Medications and Allergies Home Medications Medication Instructions Recorded Confirmed Type Multivitamins, Thera [Multivitamin] 1 tab PO DAILY 07/07/15 11/29/17 History Vitamin B Complex 1 cap PO DAILY 07/07/15 11/29/17 History Zafirlukast [Accolate] 20 mg PO DAILY 07/08/15 11/29/17 History Ascorbic Acid [Vitamin C] 1,000 mg PO DAILY 03/22/17 11/29/17 History Biotin 5,000 mcg PO DAILY 03/22/17 11/29/17 History Cetirizine HCl [Zyrtec] 10 mg PO HS 03/22/17 11/29/17 History Ferrous Sulfate [Feosol] 325 mg PO DAILY 03/22/17 11/29/17 History Thyroid,Pork [Hayes Thyroid] 90 mg PO DAILY 04/01/17 11/29/17 History Magnesium 200 mg PO DAILY 09/21/18 09/21/18 History Allergies Allergy/AdvReac Type Severity Reaction Status Date / Time ciprofloxacin [From Cipro] Allergy c-diff Verified 11/29/17 18:01 ciprofloxacin HCl Allergy Diarrhea Verified 11/29/17 18:01 [From Cipro] gemifloxacin mesylate Allergy Rash/Hives Verified 11/29/17 18:01 [From Factive] Penicillins Allergy Rash/Hives Verified 11/29/17 18:01 Sulfa (Sulfonamide Allergy Rash/Hives Verified 11/29/17 18:01 Antibiotics) wheat Allergy Anaphylaxis Verified 11/29/17 18:01 codeine AdvReac constipatio Verified 11/29/17 18:01 n Physical Exam Vitals: Vital Signs Temp Pulse Resp BP Pulse Ox 12/05/17 05:00 97.8 F 64 16 166/71 98 12/04/17 21:00 97.6 F 60 20 173/79 99 12/04/17 12:52 97.7 F 63 18 149/76 99 Intake and Output 12/04/17 12/05/17 12/05/17 22:59 06:59 14:59 Intake Total 0 1200 Balance 0 1200 Intake: IV 650 Sodium Chloride 0.9% 1, 650 000 ml @ 50 mls/hr IV . Q20H [facility] Rx#:[id number] Oral 0 550 Other: Voiding Method Toilet Toilet Toilet Diaper # Voids 5 2 # Bowel Movements 5 Blood pressure 154/71 heart rate 72 afebrile maintaining oxygen saturation on room air GENERAL: This is a 62-year-old female in no apparent distress at the time of my examination. HEENT: Head is atraumatic, normocephalic. Pupils are equal, round. Sclerae anicteric. Conjunctivae are clear. Mucous membranes of the mouth are moist. Neck is supple. There is no jugular venous distention. No carotid bruit is heard. LUNGS: Clear to auscultation no wheezes, rales or rhonchi. No chest wall tenderness is noted on palpation or with deep breathing. HEART: Regular rate and rhythm without murmurs, rubs or gallops. S1 and S2 heard. ABDOMEN: Soft, nontender. Bowel sounds are heard. No organomegaly noted. EXTREMITIES: No evidence of peripheral edema and no calf tenderness noted. VASCULAR: Radial and dorsalis pedis pulses palpated, no evidence of clubbing. NEUROLOGIC: Patient is awake, alert and oriented x3. Results 12/04/17 07:10 12/05/17 07:02 Coagulation 12/05/17 Range/Units 07:02 PT 10.5 (9.0-12.0) sec Comprehensive Metabolic Panel 12/05/17 Range/Units 07:02 Sodium 142 (137-145) mmol/L Potassium 4.2 (3.5-5.1) mmol/L Chloride 110 H (98-107) mmol/L Carbon Dioxide 21 L (22-30) mmol/L BUN 43 H (7-17) mg/dL Creatinine 4.65 H (0.52-1.04) mg/dL Glucose 81 (74-99) mg/dL Calcium 8.7 (8.4-10.2) mg/dL Current Medications Generic Name Dose Route Start Last Admin Trade Name Freq PRN Reason Stop Dose Admin Acetaminophen 650 mg 11/29/17 19:25 12/01/17 17:26 Tylenol Tab PO 650 mg Q6HR PRN Administration Mild Pain or Fever > 100.5 Acetaminophen/Butalbital/Caffeine 1 each 11/30/17 11:12 12/05/17 10:22 Fioricet 50-325-40 PO 1 each Q4HR PRN Administration Headache Amlodipine Besylate 10 mg 12/03/17 09:00 12/05/17 10:22 Norvasc PO 10 mg DAILY MARTIN Administration Hydralazine HCl 25 mg 12/05/17 10:00 12/05/17 11:02 Apresoline PO 25 mg TID MARTIN Administration Sodium Chloride 1,000 mls @ 50 mls/hr 12/01/17 11:30 12/04/17 12:49 Saline 0.9% IV 50 mls/hr .Q20H MARITN Administration Ferric Sodium Gluconate 125 mg 110 mls @ 100 mls/hr 12/03/17 12:00 12/04/17 12:47 / Sodium Chloride IVPB 12/06/17 12:01 100 mls/hr Q24H MARTIN Administration Methylprednisolone Sodium 100 mls @ 100 mls/hr 12/05/17 11:00 Succinate 1,000 mg/ Sodium IVPB 12/08/17 11:01 Chloride Q24H MARTIN Montelukast Sodium 5 mg 12/01/17 21:00 12/04/17 22:03 Singulair PO 5 mg HS MARTIN Administration Naloxone HCl 0.2 mg 11/29/17 19:25 Narcan IV Q2M PRN Opioid Reversal Ondansetron HCl 4 mg 11/29/17 19:25 12/02/17 07:49 Zofran IVP 4 mg Q8HR PRN Administration Nausea And Vomiting Sodium Bicarbonate 1,300 mg 12/04/17 21:00 12/05/17 10:22 Sodium Bicarbonate Tab PO 1,300 mg BID MARTIN Administration Thyroid 90 mg 12/01/17 09:00 12/05/17 10:22 Hayes Thyroid PO 90 mg DAILY MARTIN Administration Zolpidem Tartrate 2.5 mg 12/03/17 13:47 12/03/17 22:03 Ambien PO 2.5 mg HS PRN Administration Insomnia Intake and Output 12/04/17 12/05/17 12/05/17 22:59 06:59 14:59 Intake Total 0 1200 Balance 0 1200 Intake: IV 650 Sodium Chloride 0.9% 1, 650 000 ml @ 50 mls/hr IV . Q20H MARTIN Rx#:[id number] Oral 0 550 Other: Voiding Method Toilet Toilet Toilet Diaper # Voids 5 2 # Bowel Movements 5 12/04/17 07:10 12/05/17 07:02 Assessment and Plan Assessment: ASSESSMENT Shortness of breath at rest. She has no chest pain suggestive of pericarditis. Acute kidney injury, non-oliguric. Awaiting kidney biopsy. Hypertension, new onset this admission. Iron deficiency anemia, awaiting EGD/colonoscopy today with GI services Hyperkalemia, resolved. PLAN Obtain 2D echocardiogram and doppler study to assess cardiac structure and function. Obtain repeat EKG. Check C-reactive protein, sedimentation rate, troponin, magnesium and NTproBNP. Further recommendations to follow based on clinical course. Thank you kindly for this consultation. Nurse Practitioner note has been reviewed, I agree with a documented findings and plan of care. Patient was seen and examined.
--- NOTE | 2017-12-05 13:42 | P.CONS ---
History of Present Illness - Reason for Consult Consult date: 12/05/17 elevated creatinine Requesting physician: Malcolm E Sheet - History of Present Illness Patient is seen today as a inpatient consult for elevated creatinine and possible vasculitis. 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 Patient is a 62-year-old female who presents to the ER on November 29 due to elevated creatinine. Patient states that she has been having foul- smelling odor since March and had issues with urinary retention and polyuria so did see primary care Dr. Mike who ordered a UA and labs which did reveal elevated creatinine and was recommended to go to ER. Patient does report that she is been having generalized weakness body aches since Labor Day and has been taking Motrin 200 mg every day which did help with some of her symptoms. Patient does have a history of osteoarthritis of the knee and the left and did have left knee replacement by Dr. Hernandez in March of this year. Patient does have a history of recurrent sinus infections and last year was a "good year" during which she only has one and does follow with ENT Dr. Gambino for this. Patient denies any joint pain, databases computer consultant stiffness, or pain that wakes her at night. Patient does admit to a rash on her right lower calf that appears, is non- pruritic or tender, lasts for about 1 week and resolves spontaneously. Patient denies a violaceous rash, eczema or psoriasiform type rash.. Review of Systems Constitutional: Reports as per HPI, Reports fatigue, Reports weakness Cardiovascular: Reports as per HPI Respiratory: Reports as per HPI Gastrointestinal: Reports bloating Genitourinary: Reports urinary frequency Musculoskeletal: Reports as per HPI Integumentary: Reports rash Endocrine: Reports as per HPI Hematologic/Lymphatic: Reports as per HPI Allergic/Immunologic: Reports gluten intolerance Past Medical History Past Medical History: Asthma, Thyroid Disorder Additional Past Medical History / Comment(s): Migranes and Sandrine's disease, celiac History of Any Multi-Drug Resistant Organisms: None Reported Year Discovered:: None MDRO Source:: None Past Surgical History: Ear Surgery, Tubal Ligation, Uterine Ablation Additional Past Surgical History / Comment(s): Cardioversion Mar 2016,varicose vein procedure, x2, left total knee Past Anesthesia/Blood Transfusion Reactions: No Reported Reaction Additional Past Anesthesia/Blood Transfusion Reaction / Comm: no blood transfusion hx Past Psychological History: No Psychological Hx Reported Smoking Status: Former smoker Past Alcohol Use History: Occasional Additional Past Alcohol Use History / Comment(s): quit smoking 1993, smoked approx 14 yrs-<1ppd Past Drug Use History: None Reported - Past Family History Mother Family Medical History: Cancer Father Family Medical History: Cancer Medications and Allergies Home Medications Medication Instructions Recorded Confirmed Type Multivitamins, Thera [Multivitamin] 1 tab PO DAILY 07/07/15 11/29/17 History Vitamin B Complex 1 cap PO DAILY 07/07/15 11/29/17 History Zafirlukast [Accolate] 20 mg PO DAILY 07/08/15 11/29/17 History Ascorbic Acid [Vitamin C] 1,000 mg PO DAILY 03/22/17 11/29/17 History Biotin 5,000 mcg PO DAILY 03/22/17 11/29/17 History Cetirizine HCl [Zyrtec] 10 mg PO HS 03/22/17 11/29/17 History Ferrous Sulfate [Feosol] 325 mg PO DAILY 03/22/17 11/29/17 History Thyroid,Pork [Conception Thyroid] 90 mg PO DAILY 04/01/17 11/29/17 History Magnesium 200 mg PO DAILY 11/29/17 11/29/17 History Allergies Allergy/AdvReac Type Severity Reaction Status Date / Time ciprofloxacin [From Cipro] Allergy c-diff Verified 11/29/17 18:01 ciprofloxacin HCl Allergy Diarrhea Verified 11/29/17 18:01 [From Cipro] gemifloxacin mesylate Allergy Rash/Hives Verified 11/29/17 18:01 [From Factive] Penicillins Allergy Rash/Hives Verified 11/29/17 18:01 Sulfa (Sulfonamide Allergy Rash/Hives Verified 11/29/17 18:01 Antibiotics) wheat Allergy Anaphylaxis Verified 11/29/17 18:01 codeine AdvReac constipatio Verified 11/29/17 18:01 n Physical Exam Vitals: Vital Signs Temp Pulse Resp BP Pulse Ox 12/05/17 05:00 97.8 F 64 16 166/71 98 12/04/17 21:00 97.6 F 60 20 173/79 99 12/04/17 12:52 97.7 F 63 18 149/76 99 Intake and Output 12/04/17 12/05/17 12/05/17 22:59 06:59 14:59 Intake Total 0 1200 Balance 0 1200 Intake: IV 650 Sodium Chloride 0.9% 1, 650 000 ml @ 50 mls/hr IV . Q20H [facility] Rx#:[id number] Oral 0 550 Other: Voiding Method Toilet Toilet Toilet Diaper # Voids 5 2 # Bowel Movements 5 On physical exam, there is no henry evidence of synovitis. Patient does have distended abdomen and 1+ pitting edema of the legs. No eruption is seen on exam. - Respiratory Respiratory: bilateral: CTA - Cardiovascular Rhythm: regular Heart sounds: normal: S1, S2 leg Peripheral Edema: bilateral: 1+ - Gastrointestinal General gastrointestinal: distended, soft Results CBC & Chem 7: 12/04/17 07:10 12/05/17 07:02 Labs: Abnormal Lab Results - Last 24 Hours (Table) 12/02/17 12/05/17 Range/Units 11:06 07:02 Chloride 110 H (98-107) mmol/L Carbon Dioxide 21 L (22-30) mmol/L BUN 43 H (7-17) mg/dL Creatinine 4.65 H (0.52-1.04) mg/dL p-ANCA 1:320 H (<1:20) Titer Assessment and Plan Assessment: Since admission nephrology has been consulted, renal ultrasound was done which showed renal medical disease with no obvious mass or hydronephrosis. Patient has been having issues with shortness of breath and feels that this is due to bloating and chest x-ray revealed no acute process and VQ perfusion revealed no PE. Gastroenterology was consulted and patient will be having an EGD and colonoscopy to evaluate for anemia possibly due to acute blood loss. Patient's initial UA did reveal large blood and large leukocyte esterase and was started on Rocephin. On review of labs, white blood cell count elevated 10.7, hemoglobin low of 8.4 which is decreased from initial hemoglobin of 10.2 on November 29 and has been decreasing since patient's admission, hematocrit low of 25.5. CMP revealed carbon dioxide low of 21, chloride 110, BUN elevated of 43, creatinine elevated of 4.65 with GFR 11. Phosphorus low 5.1. Fecal occult blood was negative Iron studies revealed iron low 17, iron saturation low to 15, iron saturation 7.91, ferritin high at 375.3. DIVYA was negative, c-ANCA less than 1: A 20, p- ANCA 1:320 high, dsDNA negative, C3 151.0, C4 25.2, CH 50 greater than 101. (1) ANCA-associated vasculitis Current Visit: Yes Status: Acute Priority: High Code(s): I77.6 - ARTERITIS , UNSPECIFIED SNOMED Code(s): 753824696 (2) NONI (acute kidney injury) Current Visit: Yes Status: Acute Priority: High Code(s): N17.9 - ACUTE KIDNEY FAILURE, UNSPECIFIED SNOMED Code(s): 40091818 (3) Iron deficiency anemia Current Visit: Yes Status: Acute Priority: High Code(s): D50.9 - IRON DEFICIENCY ANEMIA, UNSPECIFIED SNOMED Code(s): 25066136 (4) UTI (urinary tract infection) Current Visit: Yes Status: Acute Priority: Medium Code(s): N39.0 - URINARY TRACT INFECTION, SITE NOT SPECIFIED SNOMED Code(s): 43035982 (5) Status post total left knee replacement Current Visit: No Status: Chronic Priority: Low Code(s): Z96.652 - PRESENCE OF LEFT ARTIFICIAL KNEE JOINT SNOMED Code(s): 3576502768873 Plan: Patient is on Solumedrol and IV fluids and recommend continuing those. Patient will have EGD and colonoscopy, and kidney biopsy to evaluate for possible vasculitis. Will order complete panel of labs excluding labs already ordered. Lab results may take some time to return so will most likely follow up with patient on outpatient basis after discharge for further plan of care. Ruddy Cuellar PA-C, discussed today's patient's assessment and plan with Dr. Rivas and she was agreeable to this. Time with Patient: Greater than 30
[2017-12-05 14:03] LABS: C Reactive Protein 59.4 mg/L (<10.0); Magnesium 1.9 mg/dL (1.6-2.3); Uric Acid 4.9 mg/dL (3.7-7.4)
[2017-12-05] MEDS ORDERED: MIDAZOLAM 2 MG/2 ML VIAL ONE (14:10)
[2017-12-05] MEDS ORDERED: PROPOFOL 10 MG/ML 20 ML VIAL IV ONE (14:10)
[2017-12-05] MEDS ORDERED: fentaNYL (PF) 50 MCG/ML 2 ML AMP ONE (14:10)
[2017-12-05] MEDS ORDERED: LIDOCAINE 1% INJ 10MG/ML (20 ML MDV) ONE (14:10)
[2017-12-05] MEDS ORDERED: IV FLUID CONTINUATION 1,000 ML IV ONE (14:17)
[2017-12-05] MEDS ORDERED: LACTATED RINGERS 500 ML IV ONE (14:34)
[2017-12-05] MEDS ORDERED: SODIUM CHLORIDE 0.9% 500 ML IV ONE (14:47)
--- NOTE | 2017-12-05 15:03 | P.PCN ---
Date of Procedure: 12/05/17 Procedure(s) Performed: Procedures: Esophagogastroduodenoscopy and biopsy. Total colonoscopy. Preoperative diagnosis: Anemia, family history of colon cancer and history of celiac disease. Postoperative diagnosis: 1. Mild antral gastritis. 2. Normal colon and terminal ileum. Preparation: GoLYTELY prep. Sedation: Was provided by anesthesia. Brief clinical history: The patient is a 62-year-old female with a past medical history of iron deficiency anemia, celiac disease diagnosed by serology only, familial colon cancer (father), migraines and Sandrine's disease. She presented with multiple complaints including foul-smelling urine, generalized weakness abdominal bloatedness decreased appetite diffuse body aches over the last month. She is being evaluated by nephrology for acute UTI, nonoliguric kidney injury secondary to ATN and nonsteroidals. Ultrasound reported no evidence of hydronephrosis. Receiving steroids and IV iron. Patient's BUN/creatinine were elevated on admission 53 and 4.7. Presently BUN is 47. Creatinine 5.0. She is scheduled for kidney biopsy. She was seen in consult for anemia. Admission hemoglobin 10.2. MCV 84. Platelet 478. Present hemoglobin is 8.4. Platelets 372. Patient was told about a year ago by her PCP that her iron studies were low she was placed on oral iron. Current iron indices iron 17. TIBC 215. Iron saturation 7.9% and ferritin 375. She has not required blood transfusions in the past. To her memory her baseline hemoglobin tends to be around 12. She denies overt bleeding such as hematemesis , hematochezia or melena. No aspirin but was taking 400 mg of Motrin sometimes twice daily for the last month for generalized aches and pains. Denies dysphagia or odynophagia. Bowel movements appearing more dark but attributes it to oral iron. Increased abdominal bloatedness and decreased appetite over the last month. Denies weight loss but reports a 4-5 pound weight gain. No fever or chills. Endoscopic history: Colonoscopy performed by Dr. Roman about 8 years ago possible few polyps removed. No EGD. Other details are summarized in the history and physical and dictated consultations and progress Notes. This evaluation is to assess for possible sources of anemia. Procedures: With the patient on her left lateral decubitus position and after informed consent and adequate sedation, I passed the Olympus-GIF 160 video upper endoscope through the cricopharyngeus down the esophagus. There was no obvious esophagitis or complicated reflux disease. The endoscope was then passed into the stomach which was insufflated with air and inspected in detail including the retroflex view in the cardia. There was some mottling and erythema in the antrum but no ulcers or erosions. Pyloric channel did not show any ulcers. Duodenal bulb, post bulbar area and descending duodenum appeared within normal limits. I obtained biopsies from the duodenum, antrum and esophagus then the endoscope was withdrawn and I proceeded with the colonoscopy. Perianal area did not show any fissures or fistulas. There were no masses felt on digital rectal examination. The Olympus CFQ 160L video colonoscope was then inserted in the rectum in the usual fashion and advanced to the cecum. I intubated the ileocecal valve and examined the terminal ileum. Terminal ileum and colon appeared healthy with no edema, erythema, friability, ulceration, exudation or spontaneous bleeding. No polyps or tumors were seen or any obvious diverticular disease or other pathology. I retroflexed the endoscope in the rectum before the endoscope was withdrawn. The patient tolerated the procedure well. Plan: The patient was reassured. I discussed with her daughter as well. Will allow diet as tolerated. Further plans based on her course and biopsy results. We will continue to follow with you with interest.
[2017-12-05] MEDS: SODIUM CHLORIDE 0.9% 1,000 ML IV SCH ×3 (16:26→21:29)
[2017-12-05] MEDS: SODIUM FERRIC GLUCONAT-SUCROSE 125 MG in SODIUM CHLORIDE 0.9% 100 ML IVPB SCH (16:41)
[2017-12-05 18:37] LABS: Rheumatoid Factor 7 IU/mL (0-15)
[2017-12-05 19:53] LABS: Hepatitis C IgG Antibody Non-Reactive (Non-Reactive)
--- NOTE | 2017-12-05 19:59 | ECHOF ---
Referral Reason:cp MEASUREMENTS -------- HEIGHT: 177.8 cm WEIGHT: 72.6 kg BP: 166/71 RVIDd: 2.7 cm (< 3.3) IVSd: 1.1 cm (0.6 - 1.1) LVIDd: 4.9 cm (3.9 - 5.3) LVPWd: 1.2 cm (0.6 - 1.1) IVSs: 1.4 cm LVIDs: 3.2 cm LVPWs: 1.4 cm LAESV Index (A-L): 37.95 ml/m Ao Diam: 2.9 cm (2.0 - 3.7) AV Cusp: 2.0 cm (1.5 - 2.6) LA Diam: 2.8 cm (2.7 - 3.8) EPSS: 0.5 cm MV E Carroll: 0.90 m/s MV DecT: 246 ms MV A Carroll: 0.74 m/s MV E/A Ratio: 1.22 RAP: 10.00 mmHg RVSP: 25.00 mmHg MV EF SLOPE: 137.59 mm/s (70 - 150) MV EXCURSION: 1.78 cm (> 18.000) FINDINGS -------- Sinus rhythm. This was a technically good study. The left ventricular size is normal. There is borderline concentric left ventricular hypertrophy. Overall left ventricular systolic function is normal with, an EF between 55 - 60 %. The right ventricle is normal in size and function. LA is moderately dilated 34-39 ml/m2 The right atrium is normal in size. Aortic valve is trileaflet and is mildly thickened. Trace to mild aortic regurgitation. There is no evidence of aortic stenosis. The mitral valve leaflets are mildly thickened. There is trace to mild mitral regurgitation. Trace tricuspid regurgitation present. Right ventricular systolic pressure is normal at < 35 mmHg. There is no evidence of pulmonary hypertension. Trace/mild (physiologic) pulmonic regurgitation. The aortic root size is normal. The IVC is dilated with normal collapse. There is a small, generalized pericardial effusion present. CONCLUSIONS -------- 1. Sinus rhythm. 2. This was a technically good study. 3. The left ventricular size is normal. 4. There is borderline concentric left ventricular hypertrophy. 5. Overall left ventricular systolic function is normal with, an EF between 55 - 60 %. 6. LA is moderately dilated 34-39 ml/m2 7. Aortic valve is trileaflet and is mildly thickened. 8. Trace to mild aortic regurgitation. 9. The mitral valve leaflets are mildly thickened. 10. There is trace to mild mitral regurgitation. 11. Trace tricuspid regurgitation present. 12. Right ventricular systolic pressure is normal at < 35 mmHg. 13. There is no evidence of pulmonary hypertension. 14. Trace/mild (physiologic) pulmonic regurgitation. 15. The aortic root size is normal. 16. The IVC is dilated with normal collapse. 17. There is a small, generalized pericardial effusion present. MARKETING PROFESSOR: Julian Ellington RDCS
[2017-12-05 20:49] LABS: Centromere Antibody Interp NEGATIVE (NEGATIVE); Cyclic Citrullinated Pep IgG POSITIVE (NEGATIVE); RNP <0.2 AI
[2017-12-05 20:50] LABS: Scleroderma SC-70 Ab <0.2 AI
[2017-12-05] MEDS: ZOLPIDEM 5 MG TAB PO SCH (21:21)
[2017-12-05] MEDS: MONTELUKAST 10 MG TAB PO SCH (21:21)
[2017-12-06 04:37] LABS: Angiotensin-1 Converting Enz. 40 U/L (8-52)
[2017-12-06 08:30] LABS: Calcium 8.6 mg/dL (8.4-10.2); Potassium 4.8 mmol/L (3.5-5.1)
--- NOTE | 2017-12-06 09:09 | P.PN ---
Subjective Patient is seen in follow-up for acute kidney injury. Her baseline creatinine is near 1 and peaked at 5.04 this admission - down to 4.65 yesterday and is 4.75 today. She is maintained on normal saline at 50 mL an hour. Patient had started taking Motrin twice daily since the beginning of November for aches. Patient states her urine is more clear since admission. No hematuria. Denies vomiting or diarrhea. Oral intake is fair. Pain in her joints is improved. P- ANCA came back positive. Vital signs are stable. General: The patient appeared well nourished and normally developed. HEENT: Head exam is unremarkable. Neck is without jugular venous distension. LUNGS: Lungs are clear to auscultation and percussion. Breath sounds decreased. HEART: Rate and Rhythm are regular. First and second heart sounds normal. No murmurs, rubs or gallops. ABDOMEN: Abdominal exam reveals normal bowel sounds. Non-tender and non- distended. No evidence of peritonitis. EXTREMITITES: No clubbing, cyanosis, or edema. Objective - Vital Signs Vital signs: Vital Signs Temp 97.7 F 12/06/17 05:00 Pulse 61 12/06/17 05:00 Resp 20 12/06/17 05:00 BP 155/78 12/06/17 05:00 Pulse Ox 96 12/06/17 05:00 Intake & Output 12/05/17 12/06/17 12/06/17 18:59 06:59 18:59 Intake Total 200 1630 Balance 200 1630 Intake: IV 200 450 Sodium Chloride 0.9% 1, 450 000 ml @ 50 mls/hr IV . Q20H [facility] Rx#:[id number] Oral 1180 Other: Voiding Method Toilet Toilet # Voids 2 2 # Bowel Movements 2 - Labs CBC & Chem 7: 12/04/17 07:10 12/06/17 06:54 Labs: Abnormal Lab Results - Last 24 Hours (Table) 12/05/17 12/05/17 12/05/17 Range/Units 13:24 13:24 13:24 ESR 79 H (0-20) mm/hr Chloride (98-107) mmol/L Carbon Dioxide (22-30) mmol/L BUN (7-17) mg/dL Creatinine (0.52-1.04) mg/dL Glucose (74-99) mg/dL C-Reactive Protein 59.4 H (<10.0) mg/L Cyclic Citrull Peptide POSITIVE H (NEGATIVE) 12/06/17 Range/Units 06:54 ESR (0-20) mm/hr Chloride 110 H (98-107) mmol/L Carbon Dioxide 18 L (22-30) mmol/L BUN 45 H (7-17) mg/dL Creatinine 4.75 H (0.52-1.04) mg/dL Glucose 100 H (74-99) mg/dL C-Reactive Protein (<10.0) mg/L Cyclic Citrull Peptide (NEGATIVE) Assessment and Plan Plan: Assessment: 1. 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 Creatinine peaked at 5.04 this admission and came down to 4.65 yesterday and is 4.75 today. No evidence of urinary retention. No evidence of hydronephrosis noted on renal ultrasound. Urine eosinophils positive at 3%. 2. Metabolic acidosis secondary to acute kidney injury. 3. Hyperkalemia secondary to acute kidney injury and metabolic acidosis. Resolved. 4. Anemia. Iron deficiency noted - status post 3 doses of IV iron. GI following. Status post EGD and colonoscopy on December 05 which revealed mild antral gastritis. Plan: Maintain normal saline at 50 mL an hour. Maintain oral bicarb to 1300 mg twice a day. Encouraged oral intake. Check phosphorus level. Repeat electrolytes in the morning. Kidney biopsy possibly today. I will give her IV DDAVP one hour prior to the biopsy. Maintain Solu-Medrol 1 g IV daily for 3 days - second dose today. Once diagnosis confirmed with kidney biopsy, will treat her with Rituximab. Hepatitis negative. Renal function relatively stable and her overall symptoms have improved since initiation of steroids. If renal function further worsens, she will need to be transferred to a tertiary care center for plasma exchange. Patient also evaluated by cardiology. No evidence of pericarditis. Add PPI for GI prophylaxis. Anti-GBM pending. Chest x-ray this admission was clear.
[2017-12-06] MEDS ORDERED: DESMOPRESSIN ACETATE 22 MCG in SODIUM CHLORIDE 0.9% 50 ML IVPB ONE (09:30)
[2017-12-06 09:46] LABS: HLA B27 NEGATIVE
[2017-12-06] MEDS: THYROID, PORK 30 MG TAB PO SCH (10:56)
[2017-12-06] MEDS: SODIUM BICARBONATE TAB 650 MG TAB PO SCH ×3 (10:57→22:07)
[2017-12-06] MEDS: hydrALAZINE HCL 25 MG TAB PO SCH ×3 (10:58→22:07)
[2017-12-06] MEDS: amLODIPine 10 MG TAB PO SCH (10:58)
[2017-12-06] MEDS: PANTOPRAZOLE 40 MG TABLET PO SCH (11:01)
--- NOTE | 2017-12-06 11:05 | P.PN ---
Subjective Progress Note Date: 12/06/17 Principal diagnosis: Anemia reported history of celiac disease 62-year-old female admitted with acute kidney injury. Status post EGD colonoscopy for evaluation of anemia history of reported celiac disease and familial history of colon cancer. EGD colonoscopy unremarkable mild antral gastritis normal colon and terminal ileum. Biopsies pending. FOBT negative. Afebrile. Kidney biopsy scheduled today. CBC not obtained today. Objective - Vital Signs Vital signs: Vital Signs Temp 97.7 F 12/06/17 05:00 Pulse 91 12/06/17 10:28 Resp 18 12/06/17 10:28 BP 151/83 12/06/17 10:28 Pulse Ox 100 12/06/17 10:15 Intake & Output 12/05/17 12/06/17 12/06/17 18:59 06:59 18:59 Intake Total 200 1630 Balance 200 1630 Intake: IV 200 450 Sodium Chloride 0.9% 1, 450 000 ml @ 50 mls/hr IV . Q20H [facility] Rx#:[id number] Oral 1180 Other: Voiding Method Toilet Toilet # Voids 2 2 # Bowel Movements 2 - Exam General appearance: The patient is alert, oriented, in no acute distress. HET: Head is normocephalic and atraumatic. Pupils are equal and reactive. Oropharynx is clear without lesions. Neck: Supple without lymphadenopathy. Trachea midline. Heart: S1 S2. Regular rate and rhythm. Lungs: No crackles or wheezes are heard. Abdomen: Soft, nontender, nondistended with bowel sounds. No peritoneal signs. No palpable organomegaly or masses. - Labs CBC & Chem 7: 12/04/17 07:10 12/06/17 06:54 Labs: Abnormal Lab Results - Last 24 Hours (Table) 12/05/17 12/05/17 12/05/17 Range/Units 13:24 13:24 13:24 ESR 79 H (0-20) mm/hr Chloride (98-107) mmol/L Carbon Dioxide (22-30) mmol/L BUN (7-17) mg/dL Creatinine (0.52-1.04) mg/dL Glucose (74-99) mg/dL C-Reactive Protein 59.4 H (<10.0) mg/L Cyclic Citrull Peptide POSITIVE H (NEGATIVE) 12/06/17 Range/Units 06:54 ESR (0-20) mm/hr Chloride 110 H (98-107) mmol/L Carbon Dioxide 18 L (22-30) mmol/L BUN 45 H (7-17) mg/dL Creatinine 4.75 H (0.52-1.04) mg/dL Glucose 100 H (74-99) mg/dL C-Reactive Protein (<10.0) mg/L Cyclic Citrull Peptide (NEGATIVE) Assessment and Plan (1) Iron deficiency anemia Narrative/Plan: 62-year-old female with a history of iron deficiency anemia maintained on oral iron approximately 1 year, familial colon cancer and celiac disease diagnosed via serology, presents with 1 month history of generalized weakness decreased appetite generalized aches pains admitted with acute nonoliguric kidney injury ATN and UTI. FOBT negative no overt signs or symptoms of acute GI bleed. EGD colonoscopy no evidence of peptic ulcer disease or bleeding sources mild gastritis normal colon biopsies pending. Current Visit: Yes Status: Acute Priority: High Code(s): D50.9 - IRON DEFICIENCY ANEMIA, UNSPECIFIED SNOMED Code(s): 52949874 (2) History of celiac disease Current Visit: Yes Status: Acute Code(s): Z87.19 - PERSONAL HISTORY OF OTHER DISEASES OF THE DIGESTIVE SYSTEM SNOMED Code(s): 560819637 (3) Familial colorectal cancer Current Visit: Yes Status: Acute Code(s): C19 - MALIGNANT NEOPLASM OF RECTOSIGMOID JUNCTION SNOMED Code(s): 831345627 (4) NONI (acute kidney injury) Current Visit: Yes Status: Acute Priority: High Code(s): N17.9 - ACUTE KIDNEY FAILURE, UNSPECIFIED SNOMED Code(s): 31848013 (5) UTI (urinary tract infection) Current Visit: Yes Status: Acute Priority: Medium Code(s): N39.0 - URINARY TRACT INFECTION, SITE NOT SPECIFIED SNOMED Code(s): 62801213 Plan: 1. No further workup from a GI standpoint. Continue with iron supplementation. Diet as tolerate. Return to office in 3-4 weeks for reevaluation. Assessment and plan a care discussed with Dr. Rivera
--- NOTE | 2017-12-06 11:58 | CT ---
DATE OF EXAM: 12/06/2017 COMPARISON: NONE CT DLP: 816 mGycm HISTORY: Renal failure PROCEDURE: Maximal barrier technique was utilized. After informed consent, the skin overlying a suit able path to the left kidney was localized using CT guidance, the skin was prepped and draped. Lidoc laxmi was used for local anesthesia. A skin alli made with a scalpel. Using CT guidance, a 17-gauge needle was advanced into in position at the lateral and inferior cortex of the left kidney where coax ial placement of an 18-gauge needle was used and core biopsy obtained. 4 passes made in total. Hemo stasis was achieved. There was no immediate complication and patient remained in stable condition. Specimen submitted to Pathology. IMPRESSION: Status post CT guided core biopsy of left renal cortex, pathology pending. This procedur e performed by the undersigned.
[2017-12-06] MEDS: SODIUM FERRIC GLUCONAT-SUCROSE 125 MG in SODIUM CHLORIDE 0.9% 100 ML IVPB SCH (12:23)
[2017-12-06 14:03] LABS: APTT 56 Sec(s) (<43); APTT 1:1 Mix 45 Sec(s) (<43); DRVVT 1:1 Mix 44 Sec(s) (<44); Dilute Russell Viper Venom 52 Sec(s) (<44); Hexagonal Phase Neutralization Positive (Negative)
--- NOTE | 2017-12-06 14:51 | P.PN ---
Subjective Patient is seen and examined sitting up in bed with family at the bedside. She is continuing to feel short of breath however seems to be getting mildly worse. She complains of orhopnea today and increased lower extremity edema. Echocardiogram obtained yesterday reveals preserved left ventricular systolic function with ejection fraction 55-60%, moderately dilated left atrium, small generalized pericardial effusion is noted. NT proBNP 7560, C-reactive protein 59.4, sedimentation rate 79, potassium 4.8, creatinine 4.75 for 4.65. She has undergone renal biopsy today, pathology pending. EGD/colonoscopy performed yesterday was unremarkable. Objective - Vital Signs Vital signs: Vital Signs Temp 97.8 F 12/06/17 13:27 Pulse 94 12/06/17 13:27 Resp 20 12/06/17 13:27 BP 135/71 12/06/17 13:27 Pulse Ox 97 12/06/17 13:27 Intake & Output 12/05/17 12/06/17 12/06/17 18:59 06:59 18:59 Intake Total 200 1630 Balance 200 1630 Weight 72.575 kg Intake: IV 200 450 Sodium Chloride 0.9% 1, 450 000 ml @ 50 mls/hr IV . Q20H [facility] Rx#:[id number] Oral 1180 Other: Voiding Method Toilet Toilet Toilet # Voids 2 2 # Bowel Movements 2 - Exam GENERAL: Well-appearing, well-nourished and in no acute distress. NECK: Supple with mild JVD noted bilatreall and no thyromegaly. LUNGS: Breath sounds clear to auscultation bilaterally. Respiration equal and unlabored. No wheezes, rales or rhonchi. HEART: Regular rate and rhythm without murmurs, rubs or gallops. S1 and S2 heard. EXTREMITIES: 1+ pitting pretibial edema bilaterally, normal range of motion. No clubbing or cyanosis. Peripheral pulses intact. - Labs CBC & Chem 7: 12/04/17 07:10 12/06/17 06:54 Labs: Abnormal Lab Results - Last 24 Hours (Table) 12/05/17 12/05/17 12/05/17 Range/Units 13:24 13:24 13:24 ESR 79 H (0-20) mm/hr Lupus Anticoag aPTT 56 H (<43) Sec(s) Lupus Anticoag PTT Mix 45 H (<43) Sec(s) Dil Kartik Viper Venom 52 H (<44) Sec(s) Lupus Hexagonal Phase Positive H (Negative) Chloride (98-107) mmol/L Carbon Dioxide (22-30) mmol/L BUN (7-17) mg/dL Creatinine (0.52-1.04) mg/dL Glucose (74-99) mg/dL Cyclic Citrull Peptide POSITIVE H (NEGATIVE) 12/06/17 Range/Units 06:54 ESR (0-20) mm/hr Lupus Anticoag aPTT (<43) Sec(s) Lupus Anticoag PTT Mix (<43) Sec(s) Dil Kartik Viper Venom (<44) Sec(s) Lupus Hexagonal Phase (Negative) Chloride 110 H (98-107) mmol/L Carbon Dioxide 18 L (22-30) mmol/L BUN 45 H (7-17) mg/dL Creatinine 4.75 H (0.52-1.04) mg/dL Glucose 100 H (74-99) mg/dL Cyclic Citrull Peptide (NEGATIVE) Assessment and Plan Assessment: ASSESSMENT Shortness of breath at rest with evidence of fluid overload with JVD, elevated NTproBNP and lower extremity edema secondary to acute kidney injury. Normal systolic function. Acute pericarditits, currently maintained on steroids Elevated NPproBNP with JVD and lower extremity swelling indicative of fluid overload. Acute kidney injury, non-oliguric. biopsy pending Hypertension, new onset this admission. Iron deficiency anemia Hyperkalemia, resolved. PLAN Hep-lock IV fluids. Discussed with Dr. Herman the possibility of IV diuresis, we will reassess tomorrow after IV fluid has been discontinued for 24 hours. Obtain STAT chest xray. Strict intake and output documentation imperative. Daily weights. Further recommendations to follow. Nurse Practitioner note has been reviewed, I agree with a documented findings and plan of care. Patient was seen and examined.
--- NOTE | 2017-12-06 16:15 | XR ---
EXAMINATION TYPE: XR chest 2V DATE OF EXAM: 12/06/2017 COMPARISON: 12/03/2017 HISTORY: Shortness of breath TECHNIQUE: Frontal and lateral views of the chest are obtained. FINDINGS: Scattered senescent parenchymal changes noted. Hyperinflation compatible with COPD. No evidence for infiltrate. No evidence for atelectasis. Heart size is stable. Mediastinal structures are stable and grossly unremarkable. No evidence for hilar prominence. Degenerative changes dorsal spine. IMPRESSION: 1. No evidence for acute pulmonary disease.
[2017-12-06] MEDS: BUTALB/APAP/CAFF 50-325-40MG TAB PO PRN (17:51)
[2017-12-06] MEDS: MONTELUKAST 10 MG TAB PO SCH (20:17)
--- NOTE | 2017-12-06 21:45 | PN ---
PROGRESS NOTE DATE OF SERVICE: December 05, 2017. PRESENTING COMPLAINT: Tired. INTERVAL HISTORY: This patient was seen by me yesterday on December 05, 2017. Patient admitted with acute renal failure. The patient has now been diagnosed with vasculitis because of p- ANCA being positive. Earlier today high dose of IV Solu-Medrol was started. The patient still has some shortness of breath, minimal edema. Does feel tired. The patient had an EGD and colonoscopy earlier today, rather unremarkable. REVIEW OF SYSTEMS: Done for constitutional, cardiovascular, GI, pulmonary; relevant findings as above. CURRENT MEDICATIONS: Reviewed that include IV Solu-Medrol 1000 mg daily and sodium bicarbonate. PHYSICAL EXAMINATION: VITAL SIGNS: Temperature 97.9, pulse 96 and respiratory rate 20. Blood pressure 143/69. Pulse ox 98% on room air. GENERAL APPEARANCE: Sitting up tired-appearing. EYES: Pupils equal. Conjunctivae pale. HEENT: External appearance of nose and ears normal. Oral cavity normal. NECK JVD not raised. Mass not palpable. RESPIRATORY: Effort normal. LUNGS: Clear. CARDIOVASCULAR: 1st and second sounds normal. Minimal edema. ABDOMEN: Soft, nontender. Liver and spleen not palpable. PSYCHIATRY: Alert and oriented x3. Mood and affect normal. INVESTIGATIONS: ESR 79. The patient's lupus anticoagulants prolonged at 56. Lupus anticoagulant PTT mixed prolonged at 45 and dilute Kartik viper venom prolonged at 52 and lupus hexagonal phase positive. Potassium 4.2, BUN 43, creatinine 4.65. ProBNP 7560. The patient's immunology did show cyclic citrul peptide to be positive. Hepatitis B and C both negative. 2D echocardiogram showed preserved LV function. ASSESSMENT: 1. Nonoliguric acute renal failure likely acute tubular necrosis acute renal failure from likely acute tubular necrosis secondary to vasculitis, likely due to microscopic polyangiitis as per p-ANCA being positive. 2. Metabolic acidosis secondary to acute kidney injury. 3. Anemia, iron deficiency type. 4. Acute urinary tract infection, completed course of antibiotic. 5. Hyperphosphatemia due to renal failure. 6. Hypothyroidism. 7. Intermittent asthma controlled. 8. Essential hypertension. PLAN: The patient in the EGD and colonoscopy was unremarkable. 2D echo showed preserved LV function. Clinically does not appear to be in CHF. The patient was started on high dose of IV Solu-Medrol. I discussed with Dr. Gallardo. Also discussed with the patient and the daughter. Follow. MMODL / IJN: [id number] /
--- NOTE | 2017-12-06 21:51 | PN ---
PROGRESS NOTE DATE OF SERVICE: 12/06/2017. PRESENTING COMPLAINT: Tired. INTERVAL HISTORY: Patient now diagnosed with acute renal failure from polyangiitis. Patient is on high- dose Solu-Medrol. Continues to feel tired, bloated in the abdomen. Had a renal biopsy done today. Daughter is present. Feels tired. Some swelling in the feet. REVIEW OF SYSTEMS: Done for constitutional, cardiovascular, GI, pulmonary and relevant findings as above. CURRENT MEDICATIONS: Reviewed that include IV Solu-Medrol 1000 mg a day, sodium bicarbonate, IV fluids were discontinued. PHYSICAL EXAMINATION: VITAL SIGNS: Temperature 97.5, pulse 87, respiratory 18, blood pressure 135/69, pulse ox 96 percent on room air. GENERAL APPEARANCE: Propped up in bed, tired appearing. EYES: Pupils equal. Conjunctivae pale. HEENT: External appearance of nose and ears normal. Oral cavity normal. Neck JVD not raised. Mass not palpable. Respiratory effort normal. LUNGS: Clear. CARDIOVASCULAR: 1st and 2nd sounds normal. Some nonpitting edema. ABDOMEN: Soft, nontender. Liver and spleen not palpable. PSYCHIATRY: Alert and oriented x3. Mood and affect normal. INVESTIGATIONS: Potassium 4.8, bicarb 18, BUN 35, creatinine 4.75. ASSESSMENT: 1. Acute nonoliguric acute renal failure from acute tubular necrosis secondary to vasculitis that is microscopic polyangiitis with positive p-ANCA. 2. Shortness of breath present. There is no pulmonary embolism. Clinically does not appear to be pulmonary edema, even though patient's BNP is elevated, I wonder if that is from underlying vasculitis. 3. Metabolic acidosis from renal failure. 4. Hyperchloremia. 5. Hyperphosphatemia due to renal failure. 6. Iron deficiency anemia status post iron supplementation. 7. Hypothyroidism. 8. Intermittent asthma. 9. Essential hypertension. 10.Acute urinary tract infection from cystitis, completed a course of antibiotics. PLAN: Care was discussed at length with the patient and daughter. Questions were answered. Plan per Dr. Gallardo is to give patient rituximab once renal biopsy is back. In the meantime, some of the patient's edema could be third-spacing from low albumin. The patient's IV fluids already been cut back. Since creatinine is still up, we will hold off any diuretics for right now. It may also be noted that the patient's pulse ox is 96 percent on room air. MMODL / IJN: [id number] /
[2017-12-06] MEDS: ZOLPIDEM 5 MG TAB PO SCH (22:07)
[2017-12-07 08:00] LABS: Calcium 9.1 mg/dL (8.4-10.2); Phosphorus 6.7 mg/dL (2.5-4.5); Potassium 4.7 mmol/L (3.5-5.1)
[2017-12-07 08:09] VITALS: RESP 18
[2017-12-07] MEDS: THYROID, PORK 30 MG TAB PO SCH (08:26)
[2017-12-07] MEDS: SODIUM BICARBONATE TAB 650 MG TAB PO SCH (08:26)
[2017-12-07] MEDS: amLODIPine 10 MG TAB PO SCH (08:26)
[2017-12-07] MEDS: hydrALAZINE HCL 25 MG TAB PO SCH (08:27)
[2017-12-07] MEDS: PANTOPRAZOLE 40 MG TABLET PO SCH (08:27)
--- NOTE | 2017-12-07 10:46 | P.PN ---
Subjective Progress Note Date: 12/07/17 This is a 62-year-old female with history of asthma, hypothyroidism, SVT, Sandrine's disease, she underwent left knee surgery in March of this year, she presented to the hospital on this occasion with symptoms of generalized malaise and fatigue with body aching and some shortness of breath. She was found to be in acute kidney injury, her creatinine in April of this year was 1, on admission here 4.7, today 4.9. Patient states that she has been taking Motrin, only twice daily since the beginning of the month. She denies any history of prior kidney disease denies any prior history of congestive heart failure. An echocardiogram with Doppler study was performed which revealed a normal left ventricular systolic function. Right ventricular systolic pressure was normal. There was a small generalized pericardial effusion noted. Renal biopsy was obtained which is yet pending. She also has had a VQ scan performed here which was low probability for pulmonary embolism. There are small match defects at the lung apices. Patient was seen and examined this morning, she is quite short of breath sitting in the chair. She does state however as compared with admission here she feels significantly better. her blood pressure this morning is 162/70 with a heart rate in the 50s, afebrile, 97% on room air. Odium this morning 139, potassium 4.7, BUN 58, creatinine 4.9. Patient does continue to put out urine. P ANCA came back positive. She was started on aggressive steroid therapy by nephrology. Patient is noted to have elevated jugular venous pressure, hepatomegaly, and peripheral leg swelling, overall her lungs sound fairly clear. Objective - Vital Signs Vital signs: Vital Signs Temp 98.2 F 12/07/17 06:52 Pulse 57 L 12/07/17 08:00 Resp 18 12/07/17 08:00 BP 163/75 12/07/17 06:52 Pulse Ox 97 12/07/17 06:52 Intake & Output 12/06/17 12/07/17 12/07/17 18:59 06:59 18:59 Weight 71.894 kg Other: Voiding Method Toilet Toilet Toilet - Exam PHYSICAL EXAMINATION: GENERAL: 62-year-old female, short of breath at rest this morning. HEENT: Head is atraumatic, normocephalic. Pupils equal, round. Sclera anicteric. Conjunctiva are clear. Mucous membranes of the mouth are moist. Neck is supple. There no elevated jugular venous pressure up to the angle of the jaw, no carotid bruit is heard. HEART EXAMINATION: [Hert S1, S2 normal. No murmur or gallop heard.] HEST EXAMINATION:[ Lungs are clear with mild diminished air entry to the bases BDOMEN: [ oft, distended, positive hepatomegaly . EXTREMITIES:[ + peripheral pulses with trace evidence of peripheral edema and no calf tenderness noted]. EUROLOGIC [patent is awake, alert and oriented X3. . - Labs CBC & Chem 7: 12/04/17 07:10 12/07/17 07:04 Labs: Abnormal Lab Results - Last 24 Hours (Table) 12/05/17 12/07/17 Range/Units 13:24 07:04 Lupus Anticoag aPTT 56 H (<43) Sec(s) Lupus Anticoag PTT Mix 45 H (<43) Sec(s) Dil Kartik Viper Venom 52 H (<44) Sec(s) Lupus Hexagonal Phase Positive H (Negative) Carbon Dioxide 21 L (22-30) mmol/L BUN 58 H (7-17) mg/dL Creatinine 4.98 H (0.52-1.04) mg/dL Glucose 110 H (74-99) mg/dL Phosphorus 6.7 H (2.5-4.5) mg/dL Assessment and Plan Plan: Assessment and plan #1 non-oliguric acute kidney injury secondary to ATN secondary to vasculitis, P ANCA is positive. Creatinine 4.9 today. No evidence of hydronephrosis on renal ultrasound. Patient is putting out some urine on high-dose steroids currently #2 hyperkalemia secondary to acute kidney injury, resolved #3 anemia, iron deficient, status post 3 doses of iron, status post EGD and colonoscopy which revealed mild antral gastritis #4 shortness of breath with evidence of elevated jugular venous pressure, hepatomegaly and mild peripheral edema. BNP level 7560. Echo reveals normal left ventricular systolic function, acute right-sided heart failure. Plan I did have a lengthy discussion this morning with nephrology regarding initiating diuretics in this patient, he has ordered a repeat chest x-ray today , we'll go and see and examine the patient and give us further recommendations from there. Kidney biopsy is pending. Once the diagnosis is confirmed with kidney biopsy plan from nephrology's perspective is to treat with rituximab. If her renal function continues to worsen, they're plan is to transfer to a tertiary care center for plasma exchange. Further recommendations to follow. DNP note has been reviewed, I agree with a documented findings and plan of care. Patient was seen and examined.
--- NOTE | 2017-12-07 11:18 | XR ---
EXAMINATION TYPE: XR chest 2V DATE OF EXAM: 12/07/2017 HISTORY: chf. REFERENCE: Previous study dated 12/06/2017. FINDINGS: The lungs are overinflated but clear. Pleural space are clear. The heart is not enlarged. IMPRESSION: COPD.
--- NOTE | 2017-12-07 11:53 | P.PN ---
Subjective Progress Note Date: 12/07/17 Principal diagnosis: C2-year-old female admitted on 11/30/2017 with generalized body aches and acute kidney injury. Her creatinine was 0.8 in April 2017 and on admission was 4.5 and Urinalysis was active with RBCs and 2 g of proteinuria. Gerald nuclear ANCA is +1 in 320 titer. Rest of serologies negative including DIVYA anti-double stranded DNA, C3 is 151, C4 is 25. Urine and serum immunofixation is pending. Her creatinine has been going up and is 4.9 as of this morning. She was started on Solu-Medrol 1 g IV piggyback on December 05 and has received the second dose yesterday and today's doses pending at the time of this dictation. She is making urine but it is not documented her vital signs are unremarkable. She denies any fever chills but complains of shortness breath. No no chills sweating chest pain dizziness. No dysuria frequency. No epistaxis. No recent history of any skin disease. No history of hoarseness of voice or visual changes. No numbness tingling nausea vomiting diarrhea abdominal pain. Objective - Vital Signs Vital signs: Vital Signs Temp 98.2 F 12/07/17 06:52 Pulse 57 L 12/07/17 08:00 Resp 18 12/07/17 08:00 BP 163/75 12/07/17 06:52 Pulse Ox 97 12/07/17 06:52 Intake & Output 12/06/17 12/07/17 12/07/17 18:59 06:59 18:59 Weight 71.894 kg Other: Voiding Method Toilet Toilet Toilet On examination she is awake alert oriented comfortable JVD is elevated and quite obvious. HEENT exam oral cavity unremarkable pupils equal and is supple no facial asymmetry no nodes are felt in the neck. Lungs are clear to auscultation percussion good air entry bilaterally Heart sounds are unremarkable for any murmur rub gallop Abdomen soft nontender no organomegaly status masses Skin exam reveals no rash. Neurologically awake alert oriented - Labs CBC & Chem 7: 12/04/17 07:10 12/07/17 07:04 Labs: Abnormal Lab Results - Last 24 Hours (Table) 12/05/17 12/07/17 Range/Units 13:24 07:04 Lupus Anticoag aPTT 56 H (<43) Sec(s) Lupus Anticoag PTT Mix 45 H (<43) Sec(s) Dil Kartik Viper Venom 52 H (<44) Sec(s) Lupus Hexagonal Phase Positive H (Negative) Carbon Dioxide 21 L (22-30) mmol/L BUN 58 H (7-17) mg/dL Creatinine 4.98 H (0.52-1.04) mg/dL Glucose 110 H (74-99) mg/dL Phosphorus 6.7 H (2.5-4.5) mg/dL Assessment and Plan Assessment: 1. Acute kidney injury. Likely this is vasculitis as her p-ANCA is +1 in 320. She has 2 g of proteinuria active sediment. Possible nonsteroidal-induced acute interstitial nephritis is also possible as she was taking some nonsteroidals. 2. Anemia hemoglobin is 8.4 down from 9.1 yesterday but it was in the 8.4-8.9 range in the last few days. Therefore no evidence of any lung hemorrhage per se. 3. Shortness of breath for the last 1 or 2 days. A chest x-ray shows no abnormalities dated 12/03/2017 a repeat chest x-rays done this morning but not uploaded in the computer. 4. Iron deficiency, 7% dated 12/01/2017 Recommendations After extensive discussion with patient and family including indoor and it was decided to transfer to [facility] to offer her plasmapheresis. The indication is creatinine above 4 and worsening in spite of Solu-Medrol. 2. There is also additional possibility of lung involvement although the p- ANCA is somewhat inconsistent with this possibility. She might be somewhat fluid overloaded. We will wait for the chest x-ray to determine further course she is already on diuretics. She will need strict I's and O's. [facility] has accepted her transfer
[2017-12-07 12:43] VITALS: BP 161/80; PULSE 67; TEMP 97.4
--- NOTE | 2017-12-08 05:58 | DS ---
DISCHARGE SUMMARY DATE OF ADMISSION: November 30, 2017. DATE OF DISCHARGE: December 07, 2017. FINAL DIAGNOSES: 1. 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 2. Metabolic acidosis from renal failure. 3. Hyperchloremia. 4. Hyperphosphatemia due to renal failure. 5. Iron deficiency anemia status post iron supplementation. 6. Hypothyroidism. 7. Intermittent asthma. 8. Essential hypertension. 9. Acute urinary tract infection from cystitis completed a course of antibiotics. HOSPITAL COURSE: This very pleasant patient with normal renal function a few months ago presented feeling weak, tired, found to be in acute renal failure. Creatinine initially was 4.71. The patient also was acidotic. Patient's lupus anticoagulant test did come back positive. At the same time, patient's CCP immunology also came back positive. The patient is seen by Nephrology, Dr. Gallardo. Patient felt to have underlying microscopic polyangiitis with p-ANCA. The patient is started on high-dose Solu-Medrol since the renal function was not improving. Dr. Rodriguez decided today to move the patient to [facility] for plasmapheresis. The patient also has been short of breath. PE was ruled out. Though the patient's proBNP was up, it was unclear if the patient actually was in CHF. 2D echo did not show any abnormal EF. Today patient vital signs are temperature 97.4, pulse 87, respiratory 18, blood pressure 116/80, pulse ox 97% on room air. Lungs have been clear. Labs today: Bicarb 21, BUN 58, creatinine 4.98. CURRENT MEDICATIONS: Include IV Solu-Medrol. DISPOSITION: [facility] for plasmapheresis. CONSULTATION: Dr. Gallardo from Nephrology, Dr. Kinney from Cardiology, Dr. Rivas from Rheumatology. Copy to Dr. Mike. MMODL / IJN: [id number] /
== END 2017-12-07 13:40 | disposition short-term general hospital (02) | DRG 683 ==
LOC: EC 15:56 → 5MS5E 20:03 → OBSVTOIN 11-30 09:45 → 5ONC 12-03 13:01
PROVIDERS: ADMIT Hospitalist; ATTEND Hospitalist
PROC: 0DB78ZX Excision of Stomach, Pylorus, Via Natural or Artificial Opening Endoscopic, Diagnostic (ICD-10-PCS; principal; 2017-12-05 14:15)
PROC: 0DJD8ZZ Inspection of Lower Intestinal Tract, Via Natural or Artificial Opening Endoscopic (ICD-10-PCS; principal; 2017-12-05 14:15)
PROC: 0DB98ZX Excision of Duodenum, Via Natural or Artificial Opening Endoscopic, Diagnostic (ICD-10-PCS; principal; 2017-12-05 14:15)
PROC: 0DB58ZX Excision of Esophagus, Via Natural or Artificial Opening Endoscopic, Diagnostic (ICD-10-PCS; principal; 2017-12-05 14:15)
DX: N17.0 Acute kidney failure with tubular necrosis (principal); D68.62 Lupus anticoagulant syndrome; E87.2 Acidosis; I31.3 Pericardial effusion (noninflammatory); I47.1 Supraventricular tachycardia; M31.7 Microscopic polyangiitis; D50.9 Iron deficiency anemia, unspecified; E06.3 Autoimmune thyroiditis; E83.39 Other disorders of phosphorus metabolism; E87.5 Hyperkalemia; E87.8 Other disorders of electrolyte and fluid balance, not elsewhere classified; Z85.038 Personal history of other malignant neoplasm of large intestine; Z83.79 Family history of other diseases of the digestive system; J45.20 Mild intermittent asthma, uncomplicated; K29.60 Other gastritis without bleeding; K90.0 Celiac disease; N30.90 Cystitis, unspecified without hematuria; T39.395A Adverse effect of other nonsteroidal anti-inflammatory drugs [NSAID], initial encounter; Z79.52 Long term (current) use of systemic steroids; Z79.899 Other long term (current) drug therapy; Z80.0 Family history of malignant neoplasm of digestive organs; Z87.891 Personal history of nicotine dependence; Z96.652 Presence of left artificial knee joint; I10 Essential (primary) hypertension; R06.02 Shortness of breath
CPT/HCPCS: 36415; 43239; 45378; 71045; 71046; 76770; 77012; 78582; 80048; 80053; 80074; 81001; 82085; 82150; 82164; 82272; 82550; 82570; 82728; 83516; 83540; 83550; 83690; 83735; 83880; 84100; 84156; 84165; 84300; 84484; 84550; 85025; 85027; 85598; 85610; 85613; 85652; 85730; 85732; 86038; 86140; 86160; 86162; 86200; 86225; 86235; 86255; 86334; 86335; 86431; 86803; 86812; 86850; 86900; 86901; 87086; 87205; 87340; 88305; 93005; 93306; 96365; 96366; 99285

== ENCOUNTER → 2018-01-02 | Outpatient (CLI) | payer MEDICAID | END | disposition home or self-care (01) | LOC: LABWHC1 10:57 | PROVIDERS: ATTEND Student in an Organized Health Care Education/Training Program | DX: N17.9 Acute kidney failure, unspecified (principal) | CPT/HCPCS: 36415; 82565; 84520 ==

== ENCOUNTER → 2018-01-23 | Outpatient (CLI) | payer MEDICAID | END | disposition home or self-care (01) | LOC: LABWHC1 16:28 | PROVIDERS: ATTEND Nurse Practitioner Family | DX: N05.8 Unspecified nephritic syndrome with other morphologic changes (principal); M31.0 Hypersensitivity angiitis; I77.6 Arteritis, unspecified | CPT/HCPCS: 36415; 83516 ==

== ENCOUNTER → 2018-04-15 | Outpatient (CLI) | payer MEDICAID ==
[2018-04-15 17:41] LABS: Basophils % (A) 0 %; Eosinophils % (A) 0 %; HCT 39.2 % (34.0-46.0); HGB 13.3 gm/dL (11.4-16.0); Lymphocytes # (A) 0.7 k/uL (1.0-4.8); Lymphocytes % (A) 19 %; MCH 32.8 pg (25.0-35.0); MCV 96.4 fL (80.0-100.0); Mean Platelet Volume 6.4; Monocytes # (A) 0.3 k/uL (0-1.0); Monocytes % (A) 7 %; Neutrophils # (A) 2.6 k/uL (1.3-7.7); Neutrophils % (A) 72 %; Platelet Count 267 k/uL (150-450); RBC 4.06 m/uL (3.80-5.40); RDW 15.2 % (11.5-15.5); WBC 3.7 k/uL (3.8-10.6)
[2018-04-15 17:56] LABS: Appearance,Urine Cloudy (Clear); Bilirubin,Urine Negative (Negative); Blood,Urine Small (Negative); Color,Urine Yellow; Glucose,Urine (UA) Negative (Negative); Ketones,Urine Negative (Negative); Leukocyte Esterase,Urine Moderate (Negative); Nitrite,Urine Negative (Negative); PH, Urine 8.5 (5.0-8.0); Protein,Urine 3+ (Negative); RBC,Urine 16 /hpf (0-5); Specific Gravity,Urine 1.009 (1.001-1.035); Squamous Epithelial Cell,Urine 26 /hpf (0-4); Urobilinogen,Urine <2.0 mg/dL (<2.0); WBC,Urine 16 /hpf (0-5)
[2018-04-15 17:57] LABS: INR 0.8 (<1.2); Prothrombin Time 9.4 sec (9.0-12.0)
[2018-04-16 01:01] LABS: Albumin 4.2 g/dL (3.80-4.90); Albumin/Globulin Ratio 2.1 (1.60-3.17); Anion Gap 11.9 mmol/L (4.00-12.00); Calcium 8.9 mg/dL (8.7-10.3); Carbon Dioxide 29.1 mmol/L (21.6-31.8); Potassium 4.4 mmol/L (3.5-5.5); Total Bilirubin 0.3 mg/dL (0.3-1.2); Total Protein 6.2 g/dL (6.2-8.2)
[2018-04-16 01:12] LABS: T4, Free (Free Thyroxine) 0.9 ng/dL (0.80-1.80)
== END | disposition home or self-care (01) ==
LOC: LABWHC1 16:17
PROVIDERS: ATTEND Family Medicine
DX: Z01.812 Encounter for preprocedural laboratory examination (principal); E06.3 Autoimmune thyroiditis
CPT/HCPCS: 36415; 80053; 81001; 84439; 84443; 84481; 85025; 85610; 85730; 87086

== ENCOUNTER 2018-04-22 16:11 | Observation (INO) | payer MEDICAID ==
[2018-04-22] MEDS ORDERED: SODIUM CHLORIDE 0.9% 500 ML 500 ML IV ONE (16:54)
--- NOTE | 2018-04-22 17:21 | ED ---
Altered Mental Status HPI - General Chief Complaint: Altered Mental Status Stated Complaint: Medication reaction Source: patient, family Mode of arrival: wheelchair Limitations: physical limitation - History of Present Illness Initial Comments: 62-year-old female with past medical history of Goodpasture's and end-stage renal failure on dialysis Saturday and Saturday presenting today for cc of giddyness, uncontrolled laughing and SOB. Patient states she began experiencing getting his uncontrolled laughing at in appropriate situations on Saturday. She states she only noted a new medication of Coreg and took a dose earlier that morning prior to onset of symptoms, she states she merely discontinued medication following the onset of uncontrolled laughing inappropriate situations feeling it could be a reaction. Patient also notes she felt slightly short of breath. Patient denies any chest pain, dyspnea on exertion. She denied knowing saying any cough fever, chills, night sweats. She states she has had on-and-off headache however she states she frequently has migraines and takes Firocet as needed. Patient states she presented to the emergency department both on Saturday and Saturday in her hometown of [facility] however both times she was discharged, after labs, physical exam and cardiology work-up. Patient denies any focal weakness, numbness tingling or loss of sensation severe headache, head injury, dizziness, nausea, vomiting, bowel pain, back pain, hematuria, hemoptysis, lower extremity swelling, calf pain, recent travel, history of cancer, history of PE, recent surgery, dysuria, urgency, frequency. Patient presented to her dialysis appointment and was told to come to the emergency department for the dizziness, uncontrolled laughing and shortness of breath. Patient denies anyone in the household having similar symptoms. She states she does have carpal monoxide monitors. She denies any recent travel, or any ingestion of foreign fish. Family states she has been AAOx3 however her laughter is at odd times and sometimes her answers to questions seem inappropriate, deny slurring of words. Admit to rapid speech. Remaining ROS (-), upon arrival pt appears well. AAOx3, laughing loudly, does not appear to be able to control laughter. Pt denies psychiatric history, auditory or visual hallucinations. Patient denies any drug use. - Related Data Home Medications Medication Instructions Recorded Confirmed Zafirlukast [Accolate] 20 mg PO DAILY 07/08/15 04/22/18 Thyroid,Pork [[place] Thyroid] 90 mg PO DAILY 04/01/17 04/22/18 Cyclophosphamide 50 mg PO DAILY 04/22/18 04/22/18 Famotidine [Pepcid] 20 mg PO BID 04/22/18 04/22/18 Sulfamethoxazole/Trimethoprim 1 tab PO DAILY 04/22/18 04/22/18 [Bactrim SS 400-80 mg] predniSONE 10 mg PO DAILY 04/22/18 04/22/18 Allergies Allergy/AdvReac Type Severity Reaction Status Date / Time ciprofloxacin [From Cipro] Allergy c-diff Verified 04/22/18 18:18 ciprofloxacin HCl Allergy Diarrhea Verified 04/22/18 18:18 [From Cipro] gemifloxacin mesylate Allergy Rash/Hives Verified 04/22/18 18:18 [From Factive] Penicillins Allergy Rash/Hives Verified 04/22/18 18:18 Sulfa (Sulfonamide Allergy Rash/Hives Verified 04/22/18 18:18 Antibiotics) wheat Allergy Anaphylaxis Verified 04/22/18 18:18 codeine AdvReac constipatio Verified 04/22/18 18:18 n NSAIDS (Non-Steroidal AdvReac Unknown Verified 04/22/18 18:18 Anti-Inflamma Review of Systems ROS Statement: Those systems with pertinent positive or pertinent negative responses have been documented in the HPI. ROS Other: All systems not noted in ROS Statement are negative. Past Medical History Past Medical History: Asthma, Thyroid Disorder Additional Past Medical History / Comment(s): Migranes and Sandrine's disease, celiac, GOODPASTURE DISEASE History of Any Multi-Drug Resistant Organisms: None Reported Date of last positivie culture/infection: None MDRO Source:: None Past Surgical History: Ear Surgery, Tubal Ligation, Uterine Ablation Additional Past Surgical History / Comment(s): Cardioversion Mar 2016,varicose vein procedure, x2, left total knee Past Anesthesia/Blood Transfusion Reactions: No Reported Reaction Additional Past Anesthesia/Blood Transfusion Reaction / Comment(s): no blood transfusion hx Past Psychological History: No Psychological Hx Reported Smoking Status: Former smoker Past Alcohol Use History: Occasional Past Drug Use History: None Reported - Past Family History Mother Family Medical History: Cancer Father Family Medical History: Cancer General Exam - General Exam Comments Initial Comments: General: The patient is awake and alert, in no distress, and does not appear acutely ill. Eye: +3 mm pupils are equal, round and reactive to light, extra-ocular movements are intact. No nystagmus. There is normal conjunctiva bilaterally. No signs of icterus. Ears, nose, mouth and throat: There are moist mucous membranes and no oral lesions. Neck: The neck is supple, there is no tenderness or JVD. Cardiovascular: There is a regular rate and rhythm. No murmur, rub or gallop is appreciated. Respiratory: Lungs are clear to auscultation, respirations are non-labored, breath sounds are equal. No wheezes, stridor, rales, or rhonchi. Gastrointestinal: Soft, non-distended, non-tender abdomen without masses or organomegaly noted. There is no rebound or guarding present. No CVA tenderness. Bowel sounds are unremarkable. Musculoskeletal: Normal ROM, no tenderness. Strength 5/5. Sensation intact. Pulses equal bilaterally 2+. Neurological: A&O x 3. CN II-XII intact, memory intact to immediately, intermediate and group home recall. Able to follow simple verbal. Able to name a common object (pen). High quality, labial (pa) and lingual (la) speech. Low quality posterior pharynx/larynx (ga) voice sounds. Able to express general knowledge (days in a week). No hemineglect or inattention noted. Finger agnosia (-) and spatially oriented. Light touch and temperature sensation present over the face, chest, abdomen, back, UE bilaterally, and LE bilaterally. Able to localize point during point localization b/l and extinction. No visible bulk atrophy, hypertrophy, fasciculations, or myoclonus of the UE or LE b/l. Full PROM in UE and LE b/l. Bilateral muscle strength 5/5 for the following muscles: deltoid, biceps, triceps, brachioradialis, wrist extensors/flexor, hip flexor, hip abductors/adductors, hamstrings, quadriceps, feet dorsiflexors/plantar flexors. Finger to nose, finger to the examiners finger, and heel to rodrigez coordinated and accurate b/l. Coordinated and even demonstration of hand flip, finger to thumb, and toe tap b/l. Gait is coordinated and even in stride with tandem, toe and heel walk. Maintains balance with monopedal stance. (-) Romberg. (-) pronator drift. No nuchal rigidity. (-) Brudzinskis and Kernig signs Skin: Skin is warm and dry and no rashes or lesions are noted. Psychiatric: Cooperative, inappropriate laughter bursts Limitations: physical limitation Course Vital Signs 04/22/18 04/22/18 04/22/18 16:51 19:27 20:13 Temperature 97.7 F Pulse Rate 73 88 Respiratory 18 18 18 Rate Blood Pressure 164/101 178/92 169/72 O2 Sat by Pulse 97 97 97 Oximetry Medical Decision Making - Medical Decision Making Well-appearing 62-year-old female presenting today for giddiness, shortness of breath. Patient is end-stage renal disease due to Goodpasture's. Patient's renal function appears within stable limits in comparison with chart review. Patient does not appear overtly short of breath, there is no tachypnea, oxygenating well on room air. HR WNL. Laboratory studies reveal no acute findings. Patient has no leukocytosis. Patient is no focal neurological deficits. EKG within normal limits. Venous blood gas reveals mild elevation of pH. CT w/o contrast (-), I did review this myself with Dr. Marcano to review for possible front lobe mass- no suggestive findings. CXR (-). Ammonia WNL. Wells score 0-1, low risk PE. Pt was evaluated in person by Dr. Marcano. At this time is unclear the cause the patient's giddiness and inappropriate laughter. Dr. Marcano discussed case with patient's admitting provider Dr. Baker who accepted admission with recommendation for MRI and psychiatric consult. DDX includes pseudobulbar effect. Pt remains stable appearing well throughout stay upon multiple reevaluation, no evidence of focal deficits. Pt was transferred to the the floor in stable condition with continuous inappropriate laughter/ giddiness. No further order from accepting admitting provider. - Lab Data Result diagrams: 04/22/18 17:10 04/22/18 17:10 Lab Results 04/22/18 04/22/18 04/22/18 Range/Units 17:10 17:10 17:10 WBC (3.8-10.6) k/uL RBC (3.80-5.40) m/uL Hgb (11.4-16.0) gm/dL Hct (34.0-46.0) % MCV (80.0-100.0) fL MCH (25.0-35.0) pg MCHC (31.0-37.0) g/dL RDW (11.5-15.5) % Plt Count (150-450) k/uL Neutrophils % % Lymphocytes % % Monocytes % % Eosinophils % % Basophils % % Neutrophils # (1.3-7.7) k/uL Lymphocytes # (1.0-4.8) k/uL Monocytes # (0-1.0) k/uL Eosinophils # (0-0.7) k/uL Basophils # (0-0.2) k/uL PT (9.0-12.0) sec INR (<1.2) APTT (22.0-30.0) sec VBG pH (7.31-7.41) VBG pCO2 (37-51) mmHg VBG HCO3 (24-28) mmol/L Sodium (137-145) mmol/L Potassium (3.5-5.1) mmol/L Chloride (98-107) mmol/L Carbon Dioxide (22-30) mmol/L Anion Gap mmol/L BUN (7-17) mg/dL Creatinine (0.52-1.04) mg/dL Est GFR (CKD-EPI)AfAm (>60 ml/min/1.73 sqM) Est GFR (CKD-EPI)NonAf (>60 ml/min/1.73 sqM) Glucose (74-99) mg/dL Plasma Lactic Acid Byron 1.7 (0.7-2.0) mmol/L Calcium (8.4-10.2) mg/dL Total Bilirubin (0.2-1.3) mg/dL AST (14-36) U/L ALT (9-52) U/L Alkaline Phosphatase (38-126) U/L Ammonia <9 (<30) umol/L Total Creatine Kinase 27 L (30-135) U/L CK-MB (CK-2) <0.2 (0.0-2.4) ng/mL CK-MB (CK-2) Rel Index Troponin I <0.012 (0.000-0.034) ng/mL Total Protein (6.3-8.2) g/dL Albumin (3.5-5.0) g/dL Urine Color Yellow Urine Appearance Clear (Clear) Urine pH 8.5 H (5.0-8.0) Ur Specific Staley 1.013 (1.001-1.035) Urine Protein 3+ H (Negative) Urine Glucose (UA) Negative (Negative) Urine Ketones Negative (Negative) Urine Blood Moderate H (Negative) Urine Nitrite Negative (Negative) Urine Bilirubin Negative (Negative) Urine Urobilinogen <2.0 (<2.0) mg/dL Ur Leukocyte Esterase Negative (Negative) Urine RBC 30 H (0-5) /hpf Urine WBC 6 H (0-5) /hpf Ur Squamous Epith Cells 8 H (0-4) /hpf Hyaline Casts 4 H (0-2) /lpf Urine Mucus Rare H (None) /hpf Urine Opiates Screen Not Detected (NotDetected) Ur Oxycodone Screen Not Detected (NotDetected) Urine Methadone Screen Not Detected (NotDetected) Ur Propoxyphene Screen Not Detected (NotDetected) Ur Barbiturates Screen Detected H (NotDetected) U Tricyclic Antidepress Not Detected (NotDetected) Ur Phencyclidine Scrn Not Detected (NotDetected) Ur Amphetamines Screen Not Detected (NotDetected) U Methamphetamines Scrn Not Detected (NotDetected) U Benzodiazepines Scrn Not Detected (NotDetected) Urine Cocaine Screen Not Detected (NotDetected) U Marijuana (THC) Screen Not Detected (NotDetected) 04/22/18 04/22/18 04/22/18 Range/Units 17:10 17:10 17:10 WBC 6.6 (3.8-10.6) k/uL RBC 4.02 (3.80-5.40) m/uL Hgb 13.2 (11.4-16.0) gm/dL Hct 38.1 (34.0-46.0) % MCV 94.7 (80.0-100.0) fL MCH 32.9 (25.0-35.0) pg MCHC 34.7 (31.0-37.0) g/dL RDW 15.1 (11.5-15.5) % Plt Count 325 (150-450) k/uL Neutrophils % 73 % Lymphocytes % 18 % Monocytes % 8 % Eosinophils % 1 % Basophils % 0 % Neutrophils # 4.8 (1.3-7.7) k/uL Lymphocytes # 1.2 (1.0-4.8) k/uL Monocytes # 0.5 (0-1.0) k/uL Eosinophils # 0.0 (0-0.7) k/uL Basophils # 0.0 (0-0.2) k/uL PT 9.4 (9.0-12.0) sec INR 0.8 (<1.2) APTT 21.8 L (22.0-30.0) sec VBG pH (7.31-7.41) VBG pCO2 (37-51) mmHg VBG HCO3 (24-28) mmol/L Sodium 137 (137-145) mmol/L Potassium 4.4 (3.5-5.1) mmol/L Chloride 98 (98-107) mmol/L Carbon Dioxide 28 (22-30) mmol/L Anion Gap 11 mmol/L BUN 22 H (7-17) mg/dL Creatinine 2.85 H (0.52-1.04) mg/dL Est GFR (CKD-EPI)AfAm 20 (>60 ml/min/1.73 sqM) Est GFR (CKD-EPI)NonAf 17 (>60 ml/min/1.73 sqM) Glucose 90 (74-99) mg/dL Plasma Lactic Acid Byron (0.7-2.0) mmol/L Calcium 9.8 (8.4-10.2) mg/dL Total Bilirubin 0.4 (0.2-1.3) mg/dL AST 31 (14-36) U/L ALT 32 (9-52) U/L Alkaline Phosphatase 80 (38-126) U/L Ammonia (<30) umol/L Total Creatine Kinase (30-135) U/L CK-MB (CK-2) (0.0-2.4) ng/mL CK-MB (CK-2) Rel Index Troponin I (0.000-0.034) ng/mL Total Protein 7.2 (6.3-8.2) g/dL Albumin 4.3 (3.5-5.0) g/dL Urine Color Urine Appearance (Clear) Urine pH (5.0-8.0) Ur Specific Staley (1.001-1.035) Urine Protein (Negative) Urine Glucose (UA) (Negative) Urine Ketones (Negative) Urine Blood (Negative) Urine Nitrite (Negative) Urine Bilirubin (Negative) Urine Urobilinogen (<2.0) mg/dL Ur Leukocyte Esterase (Negative) Urine RBC (0-5) /hpf Urine WBC (0-5) /hpf Ur Squamous Epith Cells (0-4) /hpf Hyaline Casts (0-2) /lpf Urine Mucus (None) /hpf Urine Opiates Screen (NotDetected) Ur Oxycodone Screen (NotDetected) Urine Methadone Screen (NotDetected) Ur Propoxyphene Screen (NotDetected) Ur Barbiturates Screen (NotDetected) U Tricyclic Antidepress (NotDetected) Ur Phencyclidine Scrn (NotDetected) Ur Amphetamines Screen (NotDetected) U Methamphetamines Scrn (NotDetected) U Benzodiazepines Scrn (NotDetected) Urine Cocaine Screen (NotDetected) U Marijuana (THC) Screen (NotDetected) 04/22/18 Range/Units 17:50 WBC (3.8-10.6) k/uL RBC (3.80-5.40) m/uL Hgb (11.4-16.0) gm/dL Hct (34.0-46.0) % MCV (80.0-100.0) fL MCH (25.0-35.0) pg MCHC (31.0-37.0) g/dL RDW (11.5-15.5) % Plt Count (150-450) k/uL Neutrophils % % Lymphocytes % % Monocytes % % Eosinophils % % Basophils % % Neutrophils # (1.3-7.7) k/uL Lymphocytes # (1.0-4.8) k/uL Monocytes # (0-1.0) k/uL Eosinophils # (0-0.7) k/uL Basophils # (0-0.2) k/uL PT (9.0-12.0) sec INR (<1.2) APTT (22.0-30.0) sec VBG pH 7.52 H (7.31-7.41) VBG pCO2 38 (37-51) mmHg VBG HCO3 30 H (24-28) mmol/L Sodium (137-145) mmol/L Potassium (3.5-5.1) mmol/L Chloride (98-107) mmol/L Carbon Dioxide (22-30) mmol/L Anion Gap mmol/L BUN (7-17) mg/dL Creatinine (0.52-1.04) mg/dL Est GFR (CKD-EPI)AfAm (>60 ml/min/1.73 sqM) Est GFR (CKD-EPI)NonAf (>60 ml/min/1.73 sqM) Glucose (74-99) mg/dL Plasma Lactic Acid Byron (0.7-2.0) mmol/L Calcium (8.4-10.2) mg/dL Total Bilirubin (0.2-1.3) mg/dL AST (14-36) U/L ALT (9-52) U/L Alkaline Phosphatase (38-126) U/L Ammonia (<30) umol/L Total Creatine Kinase (30-135) U/L CK-MB (CK-2) (0.0-2.4) ng/mL CK-MB (CK-2) Rel Index Troponin I (0.000-0.034) ng/mL Total Protein (6.3-8.2) g/dL Albumin (3.5-5.0) g/dL Urine Color Urine Appearance (Clear) Urine pH (5.0-8.0) Ur Specific Staley (1.001-1.035) Urine Protein (Negative) Urine Glucose (UA) (Negative) Urine Ketones (Negative) Urine Blood (Negative) Urine Nitrite (Negative) Urine Bilirubin (Negative) Urine Urobilinogen (<2.0) mg/dL Ur Leukocyte Esterase (Negative) Urine RBC (0-5) /hpf Urine WBC (0-5) /hpf Ur Squamous Epith Cells (0-4) /hpf Hyaline Casts (0-2) /lpf Urine Mucus (None) /hpf Urine Opiates Screen (NotDetected) Ur Oxycodone Screen (NotDetected) Urine Methadone Screen (NotDetected) Ur Propoxyphene Screen (NotDetected) Ur Barbiturates Screen (NotDetected) U Tricyclic Antidepress (NotDetected) Ur Phencyclidine Scrn (NotDetected) Ur Amphetamines Screen (NotDetected) U Methamphetamines Scrn (NotDetected) U Benzodiazepines Scrn (NotDetected) Urine Cocaine Screen (NotDetected) U Marijuana (THC) Screen (NotDetected) Disposition Clinical Impression: Giddiness, Altered mental status, unspecified Disposition: ADMITTED IP TO THIS [facility] Condition: Good Instructions (If sedation given, give patient instructions): Altered Mental Status (ED) Is patient prescribed a controlled substance at d/c from ED?: No Referrals: Oswald Mike MD [Primary Care Provider] - 1-2 days Time of Disposition: 20:02 Decision to Admit Reason: Admit from EC Decision Date: 04/22/18 Decision Time: 20:02
[2018-04-22 17:39] LABS: Appearance,Urine Clear (Clear); Bilirubin,Urine Negative (Negative); Blood,Urine Moderate (Negative); Color,Urine Yellow; Glucose,Urine (UA) Negative (Negative); Hyaline Casts,Urine 4 /lpf (0-2); Ketones,Urine Negative (Negative); Leukocyte Esterase,Urine Negative (Negative); Mucus,Urine Rare /hpf; Nitrite,Urine Negative (Negative); PH, Urine 8.5 (5.0-8.0); Protein,Urine 3+ (Negative); RBC,Urine 30 /hpf (0-5); Specific Gravity,Urine 1.013 (1.001-1.035); Squamous Epithelial Cell,Urine 8 /hpf (0-4); Urobilinogen,Urine <2.0 mg/dL (<2.0)
[2018-04-22 17:47] LABS: Albumin 4.3 g/dL (3.5-5.0); Basophils % (A) 0 %; Calcium 9.8 mg/dL (8.4-10.2); Eosinophils % (A) 1 %; HCT 38.1 % (34.0-46.0); HGB 13.2 gm/dL (11.4-16.0); Lymphocytes # (A) 1.2 k/uL (1.0-4.8); Lymphocytes % (A) 18 %; MCH 32.9 pg (25.0-35.0); MCHC 34.7 g/dL (31.0-37.0); MCV 94.7 fL (80.0-100.0); Mean Platelet Volume 6.3; Monocytes # (A) 0.5 k/uL (0-1.0); Monocytes % (A) 8 %; Neutrophils # (A) 4.8 k/uL (1.3-7.7); Neutrophils % (A) 73 %; Platelet Count 325 k/uL (150-450); Potassium 4.4 mmol/L (3.5-5.1); RBC 4.02 m/uL (3.80-5.40); RDW 15.1 % (11.5-15.5); Total Bilirubin 0.4 mg/dL (0.2-1.3); Total Protein 7.2 g/dL (6.3-8.2); WBC 6.6 k/uL (3.8-10.6)
[2018-04-22 17:50] LABS: Ammonia <9 umol/L (<30); Amphetamine Screen,Urine Not Detected (NotDetected); Barbiturate Screen,Urine Detected (NotDetected); Benzodiazepines Screen,Urine Not Detected (NotDetected); Cocaine Screen,Urine Not Detected (NotDetected); Lactic Acid, Venous 1.7 mmol/L (0.7-2.0); Methadone Screen, Urine Not Detected (NotDetected); Opiate Screen,Urine Not Detected (NotDetected); Oxycodone Screen, Urine Not Detected (NotDetected); Phencyclidine Screen,Urine Not Detected (NotDetected); Tricyclic Antidepressant,Urine Not Detected (NotDetected); Urn Cannabinoid Scrn Not Detected (NotDetected)
[2018-04-22 17:52] LABS: INR 0.8 (<1.2); Prothrombin Time 9.4 sec (9.0-12.0)
--- NOTE | 2018-04-22 17:52 | CT ---
EXAMINATION: CT brain wo con DATE AND TIME: 04/22/2018 5:44 PM CLINICAL INDICATION: PHH; altered mental status TECHNIQUE: Standard departmental protocol.; 1094.8; COMPARISON: None. FINDINGS: The calvarium is intact. There is no intracranial hemorrhage. There is no intracranial mass or mass effect. No definite new intra-axial or extra-axial attenuation defect. The paranasal sinuses, middle ear cavities, and mastoid sinus air cells are clear. The orbits are unremarkable. IMPRESSION: NO ACUTE PROCESS.
[2018-04-22 17:55] LABS: Partial Thromboplastin Time 21.8 sec (22.0-30.0)
[2018-04-22 17:57] LABS: Creatine Kinase 27 U/L (30-135)
--- NOTE | 2018-04-22 17:57 | XR ---
EXAMINATION: XR chest 2V DATE AND TIME: 04/22/2018 5:33 PM CLINICAL INDICATION: PHH; altered mental status TECHNIQUE: Departmental protocol COMPARISON: 01/18/2018 FINDINGS: Right IJ catheter tips superimposed over the distal SVC. The lungs are clear. The pleural spaces are negative. The cardiac silhouette is not enlarged. The remainder of the mediastinal silhouette is unremarkable. The skeletal structures and soft tissues are negative for acute findings. IMPRESSION: NO ACUTE PROCESS.
[2018-04-22 18:09] LABS: VBG PH 7.52 (7.31-7.41)
[2018-04-22 18:11] LABS: Creatine Kinase MB <0.2 ng/mL (0.0-2.4); Troponin I <0.012 ng/mL (0.000-0.034)
[2018-04-22] MEDS ORDERED: NALOXONE 0.4 MG/ML 1 ML VIAL IV PRN (19:52)
[2018-04-22] MEDS ORDERED: BUTALB/APAP/CAFF 50-325-40MG TAB PO STA (19:57)
[2018-04-22] MEDS ORDERED: hydrALAZINE HCL 20 MG/ML 1 ML VIAL IVP STA (20:07)
[2018-04-22] MEDS: SODIUM CHLORIDE 0.9% 1,000 ML IV SCH (20:32)
--- NOTE | 2018-04-22 21:30 | MR ---
EXAMINATION TYPE: MR brain wo con DATE OF EXAM: 04/22/2018 COMPARISON: CT without contrast 04/22/2018 5:25 PM HISTORY: Altered mental status, dizziness TECHNIQUE: Department protocol. Multiplanar, multisequence sequences were acquired. Diffusion weighte d imaging was performed. FINDINGS: There is no restricted diffusion to suggest acute or subacute infarction. No intracranial mass or mass effect or abnormal signal intensity. There is partial opacification of the right mastoid sinus air cells by T2 hyperintense signal. There is also subtle T2 hyperintensity within the bilateral ethmoid sinuses. Mild inflammatory changes note d at the base of the maxillary sinuses, greater on the left. These are nonspecific findings but can c orrelate with a clinical diagnosis of mastoiditis/sinusitis. IMPRESSION: 1. No acute intracranial process. 2. Right mastoid and paranasal sinus nonspecific findings.
[2018-04-22 22:32] VITALS: BMI 21.3
[2018-04-22] MEDS ORDERED: BUTALB/APAP/CAFF 50-325-40MG TAB PO PRN (23:36)
[2018-04-23] MEDS: MELATONIN 5 MG TABLET PO PRN (00:13)
[2018-04-23] MEDS: SODIUM CHLORIDE 0.9% 1,000 ML IV SCH (11:39)
[2018-04-23 14:12] LABS: Calcium 9.1 mg/dL (8.4-10.2); Potassium 4.5 mmol/L (3.5-5.1)
--- NOTE | 2018-04-23 14:34 | US ---
EXAMINATION TYPE: US venous doppler duplex LE DATE OF EXAM: 04/23/2018 1:57 PM COMPARISON: NONE CLINICAL HISTORY: Rule out DVT. swelling bilaterally, no h/o dvt SIDE PERFORMED: bilateral TECHNIQUE: The lower extremity deep venous system is examined utilizing real time linear array sonog krishan with graded compression, doppler sonography and color-flow sonography. VESSELS IMAGED: External Iliac Vein (EIV) Common Femoral Vein Deep Femoral Vein Greater Saphenous Vein * Femoral Vein Popliteal Vein Small Saphenous Vein * Proximal Calf Veins (* superficial vessels) There is normal flow, compressibility, vascular waveforms. Right Leg: appears negative for DVT Left Leg: appears negative for DVT IMPRESSION: No evident deep venous thrombosis at or above the knees. Follow-up as indicated.
--- NOTE | 2018-04-23 14:47 | P.CN ---
Psychiatric Consult - . Consult date: 04/23/18 Consult:: 04/23/18 13:10 gizzines which I think should be giddiness??? 04/23/18 14:43 Assessment and Plan Assessment: 62-year-old female with past medical history of Goodpasture's and end-stage renal failure on dialysis Saturday and Saturday presenting today for cc of giddyness, uncontrolled laughing and SOB. Patient states she began experiencing getting his uncontrolled laughing at in appropriate situations on Saturday. She states she only noted a new medication of Coreg and took a dose earlier that morning prior to onset of symptoms, she states she merely discontinued medication following the onset of uncontrolled laughing inappropriate situations feeling it could be a reaction. Patient also notes she felt slightly short of breath. Patient denies any chest pain, dyspnea on exertion. She denied knowing saying any cough fever, chills, night sweats. She states she has had on-and-off headache however she states she frequently has migraines and takes Firocet as needed. Patient states she presented to the emergency department both on Saturday and Saturday in her hometown of [facility] however both times she was discharged, after labs, physical exam and cardiology work-up. Patient denies any focal weakness, numbness tingling or loss of sensation severe headache, head injury, dizziness, nausea, vomiting, bowel pain, back pain, hematuria, hemoptysis, lower extremity swelling, calf pain, recent travel, history of cancer, history of PE, recent surgery, dysuria, urgency, frequency. Patient presented to her dialysis appointment and was told to come to the emergency department for the dizziness, uncontrolled laughing and shortness of breath. Patient denies anyone in the household having similar symptoms. She states she does have carpal monoxide monitors. She denies any recent travel, or any ingestion of foreign fish. Family states she has been AAOx3 however her laughter is at odd times and sometimes her answers to questions seem inappropriate, deny slurring of words. Admit to rapid speech. Remaining ROS (-), upon arrival pt appears well. AAOx3, laughing loudly, does not appear to be able to control laughter. Pt denies psychiatric history, auditory or visual hallucinations. Patient denies any drug use. Patient PRESENTS TO ER FOR EVAL. PT IS A RENAL FAILURE PT WHO JUST HAD DIALYSIS 04/22/2018. PT FEELS LIKE SHE HAS TO URINATE FREQUENTLY AND THEN SHE DOESN'T GO. PT HAS HAD SOME BP ISSUES LATELY AND WAS PUT ON COREG. PT TOOK ONE DOSE ON SATURDAY AND SINCE THEN SHE HAS FELT VERY GIDDY LIKE SHE IS DRUNK WITHOUT BEING IMPAIRED. PT WAS SEEN IN [facility] ER SAT FOR THIS AND SATURDAY FOR STOKE LIKE SYMPTOMS OF EXPRESSIVE APHASIA. SKIN W/P/D. ALERT AND OX3. DENNIES CP. PT FEELS SOB BUT O2 DOES NOT HELP. NO RESP DISTRESS NOTED AT REST. PT JUST CAME FORM DIALYSIS on 04/22/2018. - Related Data Home Medications Medication Instructions Recorded Confirmed Zafirlukast [Accolate] 20 mg PO DAILY 07/08/15 04/22/18 Thyroid,Pork [[place] Thyroid] 90 mg PO DAILY 04/01/17 04/22/18 Cyclophosphamide 50 mg PO DAILY 04/22/18 04/22/18 Famotidine [Pepcid] 20 mg PO BID 04/22/18 04/22/18 Sulfamethoxazole/Trimethoprim 1 tab PO DAILY 04/22/18 04/22/18 [Bactrim SS 400-80 mg] predniSONE 10 mg PO DAILY 04/22/18 04/22/18 Allergies Allergy/AdvReac Type Severity Reaction Status Date / Time ciprofloxacin [From Cipro] Allergy c-diff Verified 04/22/18 18:18 ciprofloxacin HCl Allergy Diarrhea Verified 04/22/18 18:18 [From Cipro] gemifloxacin mesylate Allergy Rash/Hives Verified 04/22/18 18:18 [From Factive] Penicillins Allergy Rash/Hives Verified 04/22/18 18:18 Sulfa (Sulfonamide Allergy Rash/Hives Verified 04/22/18 18:18 Antibiotics) wheat Allergy Anaphylaxis Verified 04/22/18 18:18 codeine AdvReac constipatio Verified 04/22/18 18:18 n NSAIDS (Non-Steroidal AdvReac Unknown Verified 04/22/18 18:18 Anti-Inflamma Past Medical History Past Medical History: Asthma, Thyroid Disorder Additional Past Medical History / Comment(s): Migranes and Sandrine's disease, celiac, GOODPASTURE DISEASE History of Any Multi-Drug Resistant Organisms: None Reported Date of last positivie culture/infection: None MDRO Source:: None Past Surgical History: Ear Surgery, Tubal Ligation, Uterine Ablation Additional Past Surgical History / Comment(s): Cardioversion Mar 2016,varicose vein procedure, x2, left total knee Past Anesthesia/Blood Transfusion Reactions: No Reported Reaction Additional Past Anesthesia/Blood Transfusion Reaction / Comment(s): no blood transfusion hx Past Psychological History: No Psychological Hx Reported Smoking Status: Former smoker Past Alcohol Use History: Occasional Past Drug Use History: None Reported - Past Family History Mother Family Medical History: Cancer Father Family Medical History: Cancer Result diagrams: 04/22/18 17:10 04/22/18 17:10 Lab Results 04/22/18 04/22/18 04/22/18 Range/Units 17:10 17:10 17:10 WBC (3.8-10.6) k/uL RBC (3.80-5.40) m/uL Hgb (11.4-16.0) gm/dL Hct (34.0-46.0) % MCV (80.0-100.0) fL MCH (25.0-35.0) pg MCHC (31.0-37.0) g/dL RDW (11.5-15.5) % Plt Count (150-450) k/uL Neutrophils % % Lymphocytes % % Monocytes % % Eosinophils % % Basophils % % Neutrophils # (1.3-7.7) k/uL Lymphocytes # (1.0-4.8) k/uL Monocytes # (0-1.0) k/uL Eosinophils # (0-0.7) k/uL Basophils # (0-0.2) k/uL PT (9.0-12.0) sec INR (<1.2) APTT (22.0-30.0) sec VBG pH (7.31-7.41) VBG pCO2 (37-51) mmHg VBG HCO3 (24-28) mmol/L Sodium (137-145) mmol/L Potassium (3.5-5.1) mmol/L Chloride (98-107) mmol/L Carbon Dioxide (22-30) mmol/L Anion Gap mmol/L BUN (7-17) mg/dL Creatinine (0.52-1.04) mg/dL Est GFR (CKD-EPI)AfAm (>60 ml/min/1.73 sqM) Est GFR (CKD-EPI)NonAf (>60 ml/min/1.73 sqM) Glucose (74-99) mg/dL Plasma Lactic Acid Byron 1.7 (0.7-2.0) mmol/L Calcium (8.4-10.2) mg/dL Total Bilirubin (0.2-1.3) mg/dL AST (14-36) U/L ALT (9-52) U/L Alkaline Phosphatase (38-126) U/L Ammonia <9 (<30) umol/L Total Creatine Kinase 27 L (30-135) U/L CK-MB (CK-2) <0.2 (0.0-2.4) ng/mL CK-MB (CK-2) Rel Index Troponin I <0.012 (0.000-0.034) ng/mL Total Protein (6.3-8.2) g/dL Albumin (3.5-5.0) g/dL Urine Color Yellow Urine Appearance Clear (Clear) Urine pH 8.5 H (5.0-8.0) Ur Specific Ingalls 1.013 (1.001-1.035) Urine Protein 3+ H (Negative) Urine Glucose (UA) Negative (Negative) Urine Ketones Negative (Negative) Urine Blood Moderate H (Negative) Urine Nitrite Negative (Negative) Urine Bilirubin Negative (Negative) Urine Urobilinogen <2.0 (<2.0) mg/dL Ur Leukocyte Esterase Negative (Negative) Urine RBC 30 H (0-5) /hpf Urine WBC 6 H (0-5) /hpf Ur Squamous Epith Cells 8 H (0-4) /hpf Hyaline Casts 4 H (0-2) /lpf Urine Mucus Rare H (None) /hpf Urine Opiates Screen Not Detected (NotDetected) Ur Oxycodone Screen Not Detected (NotDetected) Urine Methadone Screen Not Detected (NotDetected) Ur Propoxyphene Screen Not Detected (NotDetected) Ur Barbiturates Screen Detected H (NotDetected) U Tricyclic Antidepress Not Detected (NotDetected) Ur Phencyclidine Scrn Not Detected (NotDetected) Ur Amphetamines Screen Not Detected (NotDetected) U Methamphetamines Scrn Not Detected (NotDetected) U Benzodiazepines Scrn Not Detected (NotDetected) Urine Cocaine Screen Not Detected (NotDetected) U Marijuana (THC) Screen Not Detected (NotDetected) 04/22/18 04/22/18 04/22/18 Range/Units 17:10 17:10 17:10 WBC 6.6 (3.8-10.6) k/uL RBC 4.02 (3.80-5.40) m/uL Hgb 13.2 (11.4-16.0) gm/dL Hct 38.1 (34.0-46.0) % MCV 94.7 (80.0-100.0) fL MCH 32.9 (25.0-35.0) pg MCHC 34.7 (31.0-37.0) g/dL RDW 15.1 (11.5-15.5) % Plt Count 325 (150-450) k/uL Neutrophils % 73 % Lymphocytes % 18 % Monocytes % 8 % Eosinophils % 1 % Basophils % 0 % Neutrophils # 4.8 (1.3-7.7) k/uL Lymphocytes # 1.2 (1.0-4.8) k/uL Monocytes # 0.5 (0-1.0) k/uL Eosinophils # 0.0 (0-0.7) k/uL Basophils # 0.0 (0-0.2) k/uL PT 9.4 (9.0-12.0) sec INR 0.8 (<1.2) APTT 21.8 L (22.0-30.0) sec VBG pH (7.31-7.41) VBG pCO2 (37-51) mmHg VBG HCO3 (24-28) mmol/L Sodium 137 (137-145) mmol/L Potassium 4.4 (3.5-5.1) mmol/L Chloride 98 (98-107) mmol/L Carbon Dioxide 28 (22-30) mmol/L Anion Gap 11 mmol/L BUN 22 H (7-17) mg/dL Creatinine 2.85 H (0.52-1.04) mg/dL Est GFR (CKD-EPI)AfAm 20 (>60 ml/min/1.73 sqM) Est GFR (CKD-EPI)NonAf 17 (>60 ml/min/1.73 sqM) Glucose 90 (74-99) mg/dL Plasma Lactic Acid Byron (0.7-2.0) mmol/L Calcium 9.8 (8.4-10.2) mg/dL Total Bilirubin 0.4 (0.2-1.3) mg/dL AST 31 (14-36) U/L ALT 32 (9-52) U/L Alkaline Phosphatase 80 (38-126) U/L Ammonia (<30) umol/L Total Creatine Kinase (30-135) U/L CK-MB (CK-2) (0.0-2.4) ng/mL CK-MB (CK-2) Rel Index Troponin I (0.000-0.034) ng/mL Total Protein 7.2 (6.3-8.2) g/dL Albumin 4.3 (3.5-5.0) g/dL Urine Color Urine Appearance (Clear) Urine pH (5.0-8.0) Ur Specific Ingalls (1.001-1.035) Urine Protein (Negative) Urine Glucose (UA) (Negative) Urine Ketones (Negative) Urine Blood (Negative) Urine Nitrite (Negative) Urine Bilirubin (Negative) Urine Urobilinogen (<2.0) mg/dL Ur Leukocyte Esterase (Negative) Urine RBC (0-5) /hpf Urine WBC (0-5) /hpf Ur Squamous Epith Cells (0-4) /hpf Hyaline Casts (0-2) /lpf Urine Mucus (None) /hpf Urine Opiates Screen (NotDetected) Ur Oxycodone Screen (NotDetected) Urine Methadone Screen (NotDetected) Ur Propoxyphene Screen (NotDetected) Ur Barbiturates Screen (NotDetected) U Tricyclic Antidepress (NotDetected) Ur Phencyclidine Scrn (NotDetected) Ur Amphetamines Screen (NotDetected) U Methamphetamines Scrn (NotDetected) U Benzodiazepines Scrn (NotDetected) Urine Cocaine Screen (NotDetected) U Marijuana (THC) Screen (NotDetected) 04/22/18 Range/Units 17:50 WBC (3.8-10.6) k/uL RBC (3.80-5.40) m/uL Hgb (11.4-16.0) gm/dL Hct (34.0-46.0) % MCV (80.0-100.0) fL MCH (25.0-35.0) pg MCHC (31.0-37.0) g/dL RDW (11.5-15.5) % Plt Count (150-450) k/uL Neutrophils % % Lymphocytes % % Monocytes % % Eosinophils % % Basophils % % Neutrophils # (1.3-7.7) k/uL Lymphocytes # (1.0-4.8) k/uL Monocytes # (0-1.0) k/uL Eosinophils # (0-0.7) k/uL Basophils # (0-0.2) k/uL PT (9.0-12.0) sec INR (<1.2) APTT (22.0-30.0) sec VBG pH 7.52 H (7.31-7.41) VBG pCO2 38 (37-51) mmHg VBG HCO3 30 H (24-28) mmol/L Sodium (137-145) mmol/L Potassium (3.5-5.1) mmol/L Chloride (98-107) mmol/L Carbon Dioxide (22-30) mmol/L Anion Gap mmol/L BUN (7-17) mg/dL Creatinine (0.52-1.04) mg/dL Est GFR (CKD-EPI)AfAm (>60 ml/min/1.73 sqM) Est GFR (CKD-EPI)NonAf (>60 ml/min/1.73 sqM) Glucose (74-99) mg/dL Plasma Lactic Acid Byron (0.7-2.0) mmol/L Calcium (8.4-10.2) mg/dL Total Bilirubin (0.2-1.3) mg/dL AST (14-36) U/L ALT (9-52) U/L Alkaline Phosphatase (38-126) U/L Ammonia (<30) umol/L Total Creatine Kinase (30-135) U/L CK-MB (CK-2) (0.0-2.4) ng/mL CK-MB (CK-2) Rel Index Troponin I (0.000-0.034) ng/mL Total Protein (6.3-8.2) g/dL Albumin (3.5-5.0) g/dL Urine Color Urine Appearance (Clear) Urine pH (5.0-8.0) Ur Specific Ingalls (1.001-1.035) Urine Protein (Negative) Urine Glucose (UA) (Negative) Urine Ketones (Negative) Urine Blood (Negative) Urine Nitrite (Negative) Urine Bilirubin (Negative) Urine Urobilinogen (<2.0) mg/dL Ur Leukocyte Esterase (Negative) Urine RBC (0-5) /hpf Urine WBC (0-5) /hpf Ur Squamous Epith Cells (0-4) /hpf Hyaline Casts (0-2) /lpf Urine Mucus (None) /hpf Urine Opiates Screen (NotDetected) Ur Oxycodone Screen (NotDetected) Urine Methadone Screen (NotDetected) Ur Propoxyphene Screen (NotDetected) Ur Barbiturates Screen (NotDetected) U Tricyclic Antidepress (NotDetected) Ur Phencyclidine Scrn (NotDetected) Ur Amphetamines Screen (NotDetected) U Methamphetamines Scrn (NotDetected) U Benzodiazepines Scrn (NotDetected) Urine Cocaine Screen (NotDetected) U Marijuana (THC) Screen (NotDetected) Mental Status Examination - bedside interview revealed fact that she has had racing thoughts since November after her diagnosis of renal failure. She has difficulty with sleep and sometimes has woken with laughter after starting the Coreg. She is seen at bedside with her who corroborates the information. They have noted that it is difficult to court for her. She lost her taste buds. Food no longer appears appealing to her and her taste varies from day to day. She appears to be a reliable historian and has no previous psychiatric history. She has been twice and her second was present during the interview. General Appearance: [well groomed, casual, bizarre laughter, appears stated age Speech/Language: [spontaneous Attitude/Behavior: [cooperative Mood: [euthymic anxious, elated Affect: [full range, lively Orientation: [time, person, place situation] Thought Content: [racing thoughts at night which causes insomnia Risk Factors: [she is not suicidal (ideation, plan), and/or Homicidal (ideation , plan), other] Perception: [wnl Thought Processes: [goal-oriented Concentration/Attention Span: [ impaired] [Per observation and interview with the patientspouse complains of intermittent memory loss of the patient] Recent Memory: [ impaired] [ 1 out of 3 in 3 minutes] Remote Memory: [wnl] [past events, as related history] Intelligence: [ average] [based on history, based on vocabulary, syntax, grammar , and content] Judgement: [good] [per patient's behavior/history of present illness] Insight: [good] [understanding severity of illness/history of present illness Psychiatric impression: This appears to be a core Rx side effect which can be various forms of seizure, emotional lability and the interaction with prednisone.she is not a harm to herself or others. She is not a candidate for inpatient psychiatry at this time. Psychiatric recommendations:I would highly recommend an EEG as soon as possible to rule out seizure activity which may appear like an absence seizure-like activity which is replaced with laughter instead of starring. One major concern is since she's had renal failure she is complained of racing thoughts at nighttime and after EEG may want to place her on Lamictal. This drug interactions has been noted before but it's unusual in this presentation. Additionally I will order T3-T4 for sometimes racing thoughts are caused by either hypothyroidism or hyperthyroidism Thank you for the consult Bill Ray D.O. PhD] (1) Altered mental status, unspecified Current Visit: Yes Status: Acute Priority: Low Code(s): R41.82 - ALTERED MENTAL STATUS, UNSPECIFIED SNOMED Code(s): 689336961 (2) Giddiness Current Visit: Yes Status: Acute Priority: Medium Code(s): R42 - DIZZINESS AND GIDDINESS SNOMED Code(s): 027378907 Time with Patient: Greater than 30
--- NOTE | 2018-04-23 17:22 | CONS ---
CONSULTATION REASON FOR CONSULTATION: Renal failure. HISTORY OF PRESENT ILLNESS: The patient is a 62-year-old female who was admitted to the hospital with vague complaints of confusion and excessive episodes of laughter for the last 2-3 days. The patient has also been complaining of headaches. 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 She is status post plasmapheresis, currently maintained on hemodialysis. The patient remains on Cytoxan and Bactrim for prophylaxis. Lately, her blood pressure was noted to be high and patient was started on Coreg as outpatient following which patient stated she was having weakness and weight gain and aches and she said she was confused. She only took 1 dose of Coreg and following which she has stopped it. Following these symptoms, the patient has stopped the use of Coreg. She was seen twice in the emergency room in [facility] as the patient lives in [place], but comes to dialysis to the [place] unit as this is closer than the dialysis unit in [place] that would be an hour away. The patient used to work here in [place]. She is currently on medical leave. There were no major abnormal findings noted on her two visits in the ER in [facility] and yesterday at dialysis, patient's mentation was significantly changed with episodes of confusion and excessive laughter and therefore she was sent into the ER. The patient has no prior history of psychiatric disorder. She did have a brain MRI done which did not reveal any specific abnormal findings. Blood pressure has been fairly well controlled post admission now. The patient is maintained on Cytoxan at 50 mg and the plan was to decrease the dose to 25 mg. Her white cell count has been about 5-6, as outpatient. Patient remains hemodialysis dependent. She has had some urine output. However, the creatinine remains elevated at about 4-5 mg/dL. Yesterday's reading of 2.8 was soon after dialysis. Therefore it was much lower. 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 The patient also has a history of Sandrine's disease, disease, migraines, asthma. PAST SURGICAL HISTORY: Ear surgery, PermCath placement, uterine ablation, tubal ligation, cardioversion, varicose vein surgery, , left total knee arthroplasty. SOCIAL HISTORY: Negative for smoking, drug abuse or alcohol abuse. Patient is a former smoker. MEDICATIONS: Medications at home prior to admission included Accolade, Synthroid, Cytoxan, Pepcid, Bactrim, and prednisone which is down to 10 mg daily. ALLERGIES: ARE MULTIPLE, INCLUDE CIPRO, FLOXACILLIN, SULFA, WHEAT, CODEINE AND NSAIDs. REVIEW OF SYSTEMS: As per HPI. Other systems negative. PHYSICAL EXAMINATION: Patient is comfortable, awake. She is noticed to have episodes of excessive laughter. Blood pressure is 136/77, heart rate 68 per minute. She is afebrile. Examination of the heart S1, S2. Examination of the lungs bilateral breath sounds are heard. Abdomen is soft, nontender. Examination of lower extremities shows no significant edema. SCREENING TECH exam is grossly intact. LAB: Show sodium 137, potassium 4.4, BUN 22, serum creatinine 2.85, hemoglobin at 13.2 g/dL. UA shows RBCs 30, WBC 6, 3+ protein. Drug screen was positive for . ASSESSMENT: 1. Acute kidney injury, hemodialysis dependent currently end-stage renal disease. The patient's renal function has not recovered. She remains on Cytoxan and prednisone which we will start to taper. I will decrease the Cytoxan to 25 mg daily. Her white cell count is at 6.6. The patient will be scheduled for hemodialysis tomorrow. 2. Mental status changes with episodes of uncontrollable laughter to be evaluated by psych. The patient also needs to be seen by Neurology for which we may need to transfer the patient. Her brain MRI was negative. I am not sure if she will need CSF analysis as well. There is no underlying fever currently. 3. Hypertension. Blood pressure is currently controlled. Continue without medications for now. PLAN: Repeat labs today and hemodialysis tomorrow. Proceed with ID consult for possible analysis of CSF fluid, although I doubt significant underlying infection. Thank you for this consultation. We will continue to follow the patient with you during her hospitalization. MMYANETHL / DAVIN: [id number] /
--- NOTE | 2018-04-23 22:42 | P.HPIM ---
History of Present Illness This is a pleasant 62 years old female with past medical history of end-stage renal disease on dialysis, asthma and hypothyroidism, migraine. Who presents because of altered mental status, inappropriate laughting alternating with periods with dryness. She recently visited the emergency room in [facility] for headache, dysphagia and poor vision who found her to be hypertensive for around 200/100 they gave her coreg medication and discharge her. After that patient started to having this appropriate behavior of laughing after that. When she came to our emergency room she had an unremarkable chest x-ray, CAT scan and MRI of the brain. currently when i saw the pt after she finishing conversation , she blasted in big laughter , it seem pt is aware she is laughing inappropriately , she says at times she has difficutly reading however when we gave her a peace of newspaper she could read without difficulty. pt was evaluated by a psychiatrist who recommended EEG. unfortunately there is no neurological service in [facility] currently and we were going to ransfer pt to another facility where she can be seen by a neurologist. Pt is previous employ at [employer] and she has [employer] insurance and transferring her to [facility] , which is the closest center will cost her money, but she can go to another [facility] , i was in the process of contacting [employer] however pt told staff she does not to be transferred tonight and want to wait till morning. case was discussed with orthotic and prosthetic technician as well pt complaint from some swallowing difficulty and swallow evaluation is requested Review of Systems CONSTITUTIONAL: No fever, no malaise, no fatigue. HEENT: No recent visual problems or hearing problems. Denied any sore throat. CARDIOVASCULAR: No orthopnea, PND, no palpitations, no syncope. PULMONARY: No shortness of breath, no cough, no hemoptysis. GASTROINTESTINAL: No diarrhea, no nausea, no vomiting, no abdominal pain. Normoactive bowel sounds. NEUROLOGICAL: No headaches, no weakness, no numbness. HEMATOLOGICAL: Denies any bleeding or petechiae. GENITOURINARY: Denies any burning micturition, frequency, or urgency. MUSCULOSKELETAL/RHEUMATOLOGICAL: Denies any joint pain, swelling, or any muscle pain. ENDOCRINE: Denies any polyuria or polydipsia. Past Medical History Past Medical History: Asthma, Renal Disease, Thyroid Disorder Additional Past Medical History / Comment(s): Migranes and Sandrine's disease, celiac, GOODPASTURE DISEASE History of Any Multi-Drug Resistant Organisms: None Reported Date of last positivie culture/infection: None MDRO Source:: None Past Surgical History: Ear Surgery, Tubal Ligation, Uterine Ablation Additional Past Surgical History / Comment(s): Cardioversion Mar 2016,varicose vein procedure, x2, left total knee Past Anesthesia/Blood Transfusion Reactions: No Reported Reaction Additional Past Anesthesia/Blood Transfusion Reaction / Comment(s): no blood transfusion hx Past Psychological History: No Psychological Hx Reported Smoking Status: Former smoker Past Alcohol Use History: Occasional Additional Past Alcohol Use History / Comment(s): quit smoking 1993, smoked approx 14 yrs-<1ppd Past Drug Use History: None Reported - Past Family History Mother Family Medical History: Cancer Father Family Medical History: Cancer Medications and Allergies Home Medications Medication Instructions Recorded Confirmed Type Zafirlukast [Accolate] 20 mg PO DAILY 07/08/15 04/22/18 History Thyroid,Pork [[place] Thyroid] 90 mg PO DAILY 04/01/17 04/22/18 History Famotidine [Pepcid] 20 mg PO BID 04/22/18 04/22/18 History RX: Cyclophosphamide 50 mg PO DAILY 04/22/18 04/22/18 History RX: predniSONE 10 mg PO DAILY 04/22/18 04/22/18 History Sulfamethoxazole/Trimethoprim 1 tab PO DAILY 04/22/18 04/22/18 History [Bactrim SS 400-80 mg] Allergies Allergy/AdvReac Type Severity Reaction Status Date / Time ciprofloxacin [From Cipro] Allergy c-diff Verified 04/22/18 18:18 ciprofloxacin HCl Allergy Diarrhea Verified 04/22/18 18:18 [From Cipro] gemifloxacin mesylate Allergy Rash/Hives Verified 04/22/18 18:18 [From Factive] Penicillins Allergy Rash/Hives Verified 04/22/18 18:18 Sulfa (Sulfonamide Allergy Rash/Hives Verified 04/22/18 18:18 Antibiotics) wheat Allergy Anaphylaxis Verified 04/22/18 18:18 carvedilol [From Coreg] AdvReac Uncontrolled Verified 04/22/18 23:12 Laughter codeine AdvReac constipatio Verified 04/22/18 18:18 n NSAIDS (Non-Steroidal AdvReac hives Verified 04/22/18 23:10 Anti-Inflamma Physical Exam Vitals: Vital Signs Temp Pulse Pulse Resp BP BP Pulse Ox 04/23/18 07:48 97.9 F 79 16 129/66 98 04/23/18 07:45 98 04/23/18 01:07 97.8 F 68 16 136/77 97 04/22/18 22:23 97.7 F 81 18 158/79 96 04/22/18 22:20 97.7 F 81 16 158/79 96 04/22/18 21:41 98.5 F 78 16 163/95 100 04/22/18 20:13 88 18 169/72 97 04/22/18 19:27 18 178/92 97 04/22/18 16:51 97.7 F 73 18 164/101 97 Intake and Output 04/22/18 04/23/18 04/23/18 22:59 06:59 14:59 Intake Total 200 Balance 200 Intake: Amount of Fluid Infused ( 200 ml) Other: Voiding Method Toilet Weight 69 kg GENERAL: The patient is alert and oriented x3, not in any acute distress. Well developed, well nourished. HEENT: Pupils are round and equally reacting to light. EOMI. No scleral icterus. No conjunctival pallor. Normocephalic, atraumatic. No pharyngeal erythema. No thyromegaly. CARDIOVASCULAR: S1 and S2 present. No murmurs, rubs, or gallops. PULMONARY: Chest is clear to auscultation, no wheezing or crackles. ABDOMEN: Soft, nontender, nondistended, normoactive bowel sounds. No palpable organomegaly. MUSCULOSKELETAL: No joint swelling or deformity. EXTREMITIES: No cyanosis, clubbing, or pedal edema. NEUROLOGICAL: Gross neurological examination did not reveal any focal deficits. strength is 5/5 in all four extremities and there is no abnormal sensation or numbness. SKIN: No rashes. Results CBC & Chem 7: 04/22/18 17:10 04/23/18 13:11 Labs: Abnormal Lab Results - Last 24 Hours (Table) 04/22/18 04/22/18 04/22/18 Range/Units 17:10 17:10 17:10 APTT (22.0-30.0) sec VBG pH (7.31-7.41) VBG HCO3 (24-28) mmol/L BUN 22 H (7-17) mg/dL Creatinine 2.85 H (0.52-1.04) mg/dL Total Creatine Kinase 27 L (30-135) U/L Urine pH 8.5 H (5.0-8.0) Urine Protein 3+ H (Negative) Urine Blood Moderate H (Negative) Urine RBC 30 H (0-5) /hpf Urine WBC 6 H (0-5) /hpf Ur Squamous Epith Cells 8 H (0-4) /hpf Hyaline Casts 4 H (0-2) /lpf Urine Mucus Rare H (None) /hpf Ur Barbiturates Screen Detected H (NotDetected) 04/22/18 04/22/18 Range/Units 17:10 17:50 APTT 21.8 L (22.0-30.0) sec VBG pH 7.52 H (7.31-7.41) VBG HCO3 30 H (24-28) mmol/L BUN (7-17) mg/dL Creatinine (0.52-1.04) mg/dL Total Creatine Kinase (30-135) U/L Urine pH (5.0-8.0) Urine Protein (Negative) Urine Blood (Negative) Urine RBC (0-5) /hpf Urine WBC (0-5) /hpf Ur Squamous Epith Cells (0-4) /hpf Hyaline Casts (0-2) /lpf Urine Mucus (None) /hpf Ur Barbiturates Screen (NotDetected) Microbiology - Last 24 Hours (Table) 04/22/18 17:10 Urine Culture - Preliminary Urine,Voided Thrombosis Risk Factor Assmnt - Choose All That Apply Any of the Below Risk Factors Present?: Yes Other Risk Factors: Yes Each Risk Factor Represents 2 Points: Age 61-74 years Other congenital or acquired thrombophilia - If yes, enter type in comment: No Thrombosis Risk Factor Assessment Total Risk Factor Score: 2 Thrombosis Risk Factor Assessment Level: Low Risk Assessment and Plan Assessment: Inappropriate laughting and crying , need psych and neurologist evaluation Previous of headache, blurred vision and dysphagia with negative MRI of the brain. Possible TIA. order swallow test End-stage renal disease on hemodialysis History of asthma, not in active tissue h/o High blood pressure , controlled now Hypothyroidism History of migraine headache History of Sandrine thyroiditis Plan: This is a pleasant 62 years old female who presents with neurological symptoms and inappropriate emotional behavior. Patient has been evaluated by Dr. Shen the orthotic and prosthetic technician . and psych consult. Patient might need neurological evaluation. pt refused to be transferred today and want to wait till tomorrow. check swallow function. Labs and medication were reviewed.. Continue same treatment. Continue with symptomatic treatment. Resume home medication. Monitor lytes and vitals. DVT and GI prophylaxis. Further recommendations of the clinical course of the patient DVT prophylaxis: Subcutaneous heparin GI Prophylaxis: Pepcid PT/OT: Pending Prognosis is guarded
[2018-04-24] MEDS: MELATONIN 5 MG TABLET PO PRN (02:14)
[2018-04-24 07:46] LABS: Basophils % (A) 1 %; Eosinophils # (A) 0.1 k/uL (0-0.7); Eosinophils % (A) 3 %; HCT 31.7 % (34.0-46.0); HGB 10.8 gm/dL (11.4-16.0); Lymphocytes # (A) 0.9 k/uL (1.0-4.8); Lymphocytes % (A) 24 %; MCH 33.5 pg (25.0-35.0); MCV 98.5 fL (80.0-100.0); Mean Platelet Volume 6.1; Monocytes # (A) 0.4 k/uL (0-1.0); Monocytes % (A) 10 %; Neutrophils # (A) 2.2 k/uL (1.3-7.7); Neutrophils % (A) 59 %; Platelet Count 229 k/uL (150-450); RBC 3.22 m/uL (3.80-5.40); RDW 15.6 % (11.5-15.5); WBC 3.7 k/uL (3.8-10.6)
[2018-04-24 08:05] LABS: Calcium 8.9 mg/dL (8.4-10.2)
[2018-04-24 08:44] VITALS: PULSE 86; RESP 18
[2018-04-24] MEDS ORDERED: amLODIPine 5 MG TAB PO SCH (09:00)
[2018-04-24] MEDS ORDERED: CYCLOPHOSPHAMIDE 25 MG PO SCH (09:00)
[2018-04-24] MEDS ORDERED: SULFAMETHOX-TMP 400-80MG 1 EACH TAB PO SCH ×2 (09:00)
--- NOTE | 2018-04-24 10:38 | P.EN ---
this morning pt agree to be transferred to [facility] as she refused yesterday evening i called admitting at [facility] at [phone], they give me the name of the on-call hospitalist Dr. Eckert, I patient or twice at [phone], pager [phone]. Still her responds is pending I called the admitting again at the above number left a message to call me back and still pending as well.
[2018-04-24 17:23] VITALS: BP 183/86; TEMP 98.2
--- NOTE | 2018-04-24 20:11 | P.DS ---
Providers Date of admission: 04/22/18 21:42 Attending physician: Ej Baker Consults: 04/22/18 19:52 Consult Physician Stat Consulting Provider: Bill Ray Consult Reason/Comments: gizziness Do you want consulting provider notified?: Yes 04/22/18 19:54 Consult Physician Routine Consulting Provider: Kelly Shen Consult Reason/Comments: diaylsis patient Do you want consulting provider notified?: Yes, Notify in am 04/23/18 12:11 Consult Physician Routine Consulting Provider: Heriberto Barcenas Consult Reason/Comments: new onset of emotional symptoms, rule out any infectious processes Do you want consulting provider notified?: Yes Primary care physician: [facility] Course: Dx: Inappropriate laughting and crying , need psych and neurologist evaluation . EEG done and result is pending Previous of headache, blurred vision and dysphagia with negative MRI of the brain. Possible TIA. order swallow test End-stage renal disease on hemodialysis History of asthma, not in active tissue h/o High blood pressure , controlled now Hypothyroidism History of migraine headache History of Sandrine thyroiditis hospital course This is a pleasant 62 years old female with past medical history of end-stage renal disease on dialysis, asthma and hypothyroidism, migraine. Who presents because of altered mental status, inappropriate laughting alternating with periods with dryness. She recently visited the emergency room in [facility] for headache, dysphagia and poor vision who found her to be hypertensive for around 200/100 they gave her coreg medication and discharge her. After that patient started to having this inappropriate behavior of laughing after that. When she came to our emergency room she had an unremarkable chest x-ray, CAT scan and MRI of the brain.today she feels a little better however she still has this periods of loud laughing, no headache , no weakness or abnormal sensation. no blurred vissoin , no swallowing difficutly ( pt denied swallow eval as she noticed she has good swallowing ) . pt is aware to her problems that she is laughing inappropriately. sshe still complaining from pain in her both lower ext but influenza test is negative and doppler US of lower ext is negative for DVT. pt has been evaluated by psychiatrist and recommended EEG to exclude atypical seizure . EEG was done but pt was decided to be transferred to [facility] as she needs neurologist to see the pt which is not available currently in this hospital . pt underwent hemodialysis today before transfer upon recommendation of the crew leader gluing as she became more dyspneic . pt agrees to the transfer. and I talked to and she kindly accepted pt , i discussed the case with her and she is aware EEG is done and result is pending pt is stable for transfer in guarded prognosis GENERAL: The patient is alert and oriented x3, not in any acute distress. Well developed, well nourished. HEENT: Pupils are round and equally reacting to light. EOMI. No scleral icterus. No conjunctival pallor. Normocephalic, atraumatic. No pharyngeal erythema. No thyromegaly. CARDIOVASCULAR: S1 and S2 present. No murmurs, rubs, or gallops. PULMONARY: Chest is clear to auscultation, no wheezing or crackles. ABDOMEN: Soft, nontender, nondistended, normoactive bowel sounds. No palpable organomegaly. MUSCULOSKELETAL: No joint swelling or deformity. EXTREMITIES: No cyanosis, clubbing, or pedal edema. NEUROLOGICAL: Gross neurological examination did not reveal any focal deficits. strength is 5/5 in all four extremities and there is no abnormal sensation or numbness. SKIN: No rashes. time spent more than 35 min Patient Condition at Discharge: Good Plan - Discharge Summary Discharge Rx Participant: Yes New Discharge Prescriptions: New amLODIPine [Norvasc] 5 mg PO DAILY tab Butalb/APAP/Caff 50-325-40Mg [Fioricet 50-325-40] 1 each PO Q4HR PRN tab PRN Reason: Headache Melatonin 5 mg PO HS PRN tablet PRN Reason: trouble sleeping Continue Zafirlukast [Accolate] 20 mg PO DAILY Thyroid,Pork [[place] Thyroid] 90 mg PO DAILY Famotidine [Pepcid] 20 mg PO BID predniSONE 10 mg PO DAILY Sulfamethoxazole/Trimethoprim [Bactrim SS 400-80 mg] 1 tab PO DAILY Cyclophosphamide 50 mg PO DAILY Discharge Medication List Zafirlukast [Accolate] 20 mg PO DAILY 07/08/15 [History] Thyroid,Pork [[place] Thyroid] 90 mg PO DAILY 04/01/17 [History] Cyclophosphamide 50 mg PO DAILY 04/22/18 [History] Famotidine [Pepcid] 20 mg PO BID 04/22/18 [History] Sulfamethoxazole/Trimethoprim [Bactrim SS 400-80 mg] 1 tab PO DAILY 04/22/18 [ History] predniSONE 10 mg PO DAILY 04/22/18 [History] Butalb/APAP/Caff 50-325-40Mg [Fioricet 50-325-40] 1 each PO Q4HR PRN tab [Rx] Melatonin 5 mg PO HS PRN tablet 04/24/18 [Rx] amLODIPine [Norvasc] 5 mg PO DAILY tab 04/24/18 [Rx] Follow up Appointment(s)/Referral(s): Oswald Mike MD [Primary Care Provider] - 1-2 days Patient Instructions/Handouts: Altered Mental Status (ED) Discharge Disposition: OTHER INSTITUTION NOT DEFINED
--- NOTE | 2018-04-24 21:57 | P.CONS ---
History of Present Illness - Reason for Consult Consult date: 04/24/18 - Chief Complaint change of mental status - History of Present Illness 62 year old woman with recent history of a right TKA which did relatively well except for some difficulties with pain and ROM after procedure. Very significant change occurred late last year when she developed acute renal failure. 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 She required transfer to tertiary care center for plasmapheresis. Despite a course of plasmapheresis and immunosuppressive therapy she has remained with acute renal failure and is requiring renal replacement therapy with hemodialysis. Is due to have a fistula placed in the near future. However the patient was having some hypertension and was placed on Coreg. Apparently after even the first dose she has significant change of her status. She started to feel like she was drunk and became quite giddy. Inserted to laugh mostly uncontrollably. Although this may have settled a bit she continues to laugh with almost no provocation. She is actually left the point in time where she has soreness in her trapezius area. She does not believe that she's had any other acute neurological changes. She's had no loss of consciousness, no unusual motion or movements. Her is present and relates that she did have some difficulties after first dose of Coreg or she has difficulty concentrating. She is trying to read a book but was not having any success she could not recall what she was reading. This is improved and she is able to read the newspaper and magazines now without any difficulties. Patient and cooperated there's been no fevers, chills or rigors. She had no evidence of any recent viral illnesses. She's had no respiratory or gastrointestinal illness as of late. She is treated with hemodialysis, cyclophosphamide and Bactrim prophylaxis which have not changed for months. Review of Systems HEENT:Denies headache or acute visual change. Denies sinus or mouth discomforts. Denies neck stiffness or pain. Denies significant oral cavity pain. Denies difficulty on swallowing. Lungs: Denies significant shortness of breath, cough, sputum production, or hemoptysis. Cardiovascular: Denies significant shortness of breath, chest pain, chest wall pain, orthopnea, dyspnea on exertion, syncope Gastrointestinal:Denies nausea, vomiting, diarrhea, constipation, hematemesis, melena, hematochezia. No no significant change of bowel habit noticed. Musculoskeletal: denies significant myalgias or arthralgias. No new joint swelling. Denies new back pain. Skin: Denies new rash or lesions. No new ulcers or wounds are related.. Neuro: Denies headache or visual change. Denies any new onset weakness or difficulty with ambulation. Denies falls or seizures. But as per the HPI is having difficulties with inappropriate laughter. Psychiatric:Denies anxiety or depression. Endocrine: Has had fatigue weight has been minimally decreased with her acute illness. Past Medical History Past Medical History: Asthma, Renal Disease, Thyroid Disorder Additional Past Medical History / Comment(s): Migranes and Sandrine's disease, celiac, GOODPASTURE DISEASE History of Any Multi-Drug Resistant Organisms: None Reported Year Discovered:: None MDRO Source:: None Past Surgical History: Ear Surgery, Tubal Ligation, Uterine Ablation Additional Past Surgical History / Comment(s): Cardioversion Mar 2016,varicose vein procedure, x2, left total knee Past Anesthesia/Blood Transfusion Reactions: No Reported Reaction Additional Past Anesthesia/Blood Transfusion Reaction / Comm: no blood transfusion hx Past Psychological History: No Psychological Hx Reported Additional Psychological History / Comment(s): and lives in the family home with . Retired nurse aide. No experience. No international travel except [place]. No recent animal exposures. No current tobacco alcohol or recreational drug use Smoking Status: Former smoker Past Alcohol Use History: Occasional Additional Past Alcohol Use History / Comment(s): quit smoking 1993, smoked approx 14 yrs-<1ppd Past Drug Use History: None Reported - Past Family History Mother Family Medical History: Cancer Father Family Medical History: Cancer Medications and Allergies Home Medications and Allergies Comment(s): Please see the pharmacy listing of current medications Home Medications Medication Instructions Recorded Confirmed Type Zafirlukast [Accolate] 20 mg PO DAILY 07/08/15 04/22/18 History Thyroid,Pork [[place] Thyroid] 90 mg PO DAILY 04/01/17 04/22/18 History Cyclophosphamide 50 mg PO DAILY 04/22/18 04/22/18 History Famotidine [Pepcid] 20 mg PO BID 04/22/18 04/22/18 History Sulfamethoxazole/Trimethoprim 1 tab PO DAILY 04/22/18 04/22/18 History [Bactrim SS 400-80 mg] predniSONE 10 mg PO DAILY 04/22/18 04/22/18 History Butalb/APAP/Caff 50-325-40Mg 1 each PO Q4HR PRN tab 04/24/18 Rx [Fioricet 50-325-40] Melatonin 5 mg PO HS PRN tablet 04/24/18 Rx amLODIPine [Norvasc] 5 mg PO DAILY tab 04/24/18 Rx Allergies Allergy/AdvReac Type Severity Reaction Status Date / Time ciprofloxacin [From Cipro] Allergy c-diff Verified 04/22/18 18:18 ciprofloxacin HCl Allergy Diarrhea Verified 04/22/18 18:18 [From Cipro] gemifloxacin mesylate Allergy Rash/Hives Verified 04/22/18 18:18 [From Factive] Penicillins Allergy Rash/Hives Verified 04/22/18 18:18 Sulfa (Sulfonamide Allergy Rash/Hives Verified 04/22/18 18:18 Antibiotics) wheat Allergy Anaphylaxis Verified 04/22/18 18:18 carvedilol [From Coreg] AdvReac Uncontrolled Verified 04/22/18 23:12 Laughter codeine AdvReac constipatio Verified 04/22/18 18:18 n NSAIDS (Non-Steroidal AdvReac hives Verified 04/22/18 23:10 Anti-Inflamma Physical Exam Vitals: Vital Signs Temp Pulse Resp BP Pulse Ox 04/24/18 15:52 86 18 04/24/18 15:00 98.2 F 59 L 16 183/86 98 04/24/18 08:00 86 18 04/24/18 07:00 97.5 F L 86 18 179/93 95 04/24/18 02:45 97.4 F L 60 16 158/78 97 Intake and Output 04/24/18 04/24/18 04/24/18 06:59 14:59 22:59 Intake Total 525 Balance 525 Intake: Intake, IV Titration 525 Amount Sodium Chloride 0.9% 1, 525 000 ml @ 75 mls/hr IV . [id number] [facility] [place] Rx#:[id number] Other: Voiding Method Toilet Toilet 62 year old woman HEENT: Anicteric conjunctiva are pink and moist nasal mucosa grossly intact without significant lesions, there is no thrush. Neck: The neck is supple without significant lymphadenopathy or thyromegaly. Lungs: Good bilateral air entry without significant crackles or whheezes There is no significant bronchial sounds. There is no egophony or dullness. Heart: Regular rate and rhythm with an audible S1-S2, no S3 no S4. There is no significant murmur click or rub, PMI was nondisplaced. Abdomen: Positive bowel sounds soft and nontender without palpable masses or organomegaly. There was no guarding or rebound. Extremities: The upper extremities have excellent pulses they are symmetric, no significant petechiae or telangiectasia. No splinter hemorrhages were noted. The lower extremities are free from significant edema. The peripheral pulses were 2+ and symmetric. Neuro: Awake alert oriented to person place and time. There are no acute new gross focal sensory motor deficits. Pateint laughs loudly with almost no stimuli , does have limited control to stop the laughing. Able to ambulate without difficulty , no facial asymmetry. Handgrip is 5 out of 5 bilaterally. Leg strength is 5 out of 5 bilaterally. Results CBC & Chem 7: 04/24/18 06:31 04/24/18 06:45 Labs: Abnormal Lab Results - Last 24 Hours (Table) 04/22/18 04/24/18 04/24/18 Range/Units 17:10 06:31 06:45 WBC 3.7 L (3.8-10.6) k/uL RBC 3.22 L (3.80-5.40) m/uL Hgb 10.8 L (11.4-16.0) gm/dL Hct 31.7 L (34.0-46.0) % RDW 15.6 H (11.5-15.5) % Lymphocytes # 0.9 L (1.0-4.8) k/uL Chloride 109 H (98-107) mmol/L BUN 42 H (7-17) mg/dL Creatinine 4.57 H (0.52-1.04) mg/dL Total T4 4.0 L (4.5 - 10.9) ug/dL Microbiology - Last 24 Hours (Table) 04/22/18 17:10 Urine Culture - Final Urine,Voided Laboratory Results WBC 3.7 k/uL (3.8-10.6) L 04/24/18 06:31 RBC 3.22 m/uL (3.80-5.40) L 04/24/18 06:31 Hgb 10.8 gm/dL (11.4-16.0) L 04/24/18 06:31 Hct 31.7 % (34.0-46.0) L 04/24/18 06:31 MCV 98.5 fL (80.0-100.0) 04/24/18 06:31 MCH 33.5 pg (25.0-35.0) 04/24/18 06:31 MCHC 34.0 g/dL (31.0-37.0) 04/24/18 06:31 RDW 15.6 % (11.5-15.5) H 04/24/18 06:31 Plt Count 229 k/uL (150-450) 04/24/18 06:31 Neutrophils % 59 % 04/24/18 06:31 Lymphocytes % 24 % 04/24/18 06:31 Monocytes % 10 % 04/24/18 06:31 Eosinophils % 3 % 04/24/18 06:31 Basophils % 1 % 04/24/18 06:31 Neutrophils # 2.2 k/uL (1.3-7.7) 04/24/18 06:31 Lymphocytes # 0.9 k/uL (1.0-4.8) L 04/24/18 06:31 Monocytes # 0.4 k/uL (0-1.0) 04/24/18 06:31 Eosinophils # 0.1 k/uL (0-0.7) 04/24/18 06:31 Basophils # 0.0 k/uL (0-0.2) 04/24/18 06:31 PT 9.4 sec (9.0-12.0) 04/22/18 17:10 INR 0.8 (<1.2) 04/22/18 17:10 APTT 21.8 sec (22.0-30.0) L 04/22/18 17:10 VBG pH 7.52 (7.31-7.41) H 04/22/18 17:50 VBG pCO2 38 mmHg (37-51) 04/22/18 17:50 VBG HCO3 30 mmol/L (24-28) H 04/22/18 17:50 Sodium 139 mmol/L (137-145) 04/24/18 06:45 Potassium 5.0 mmol/L (3.5-5.1) 04/24/18 06:45 Chloride 109 mmol/L (98-107) H 04/24/18 06:45 Carbon Dioxide 23 mmol/L (22-30) 04/24/18 06:45 Anion Gap 7 mmol/L 04/24/18 06:45 BUN 42 mg/dL (7-17) H 04/24/18 06:45 Creatinine 4.57 mg/dL (0.52-1.04) H 04/24/18 06:45 Est GFR (CKD-EPI)AfAm 11 (>60 ml/min/1.73 sqM) 04/24/18 06:45 Est GFR (CKD-EPI)NonAf 10 (>60 ml/min/1.73 sqM) 04/24/18 06:45 Glucose 76 mg/dL (74-99) 04/24/18 06:45 Plasma Lactic Acid [place] 1.7 mmol/L (0.7-2.0) 04/22/18 17:10 Calcium 8.9 mg/dL (8.4-10.2) 04/24/18 06:45 Total Bilirubin 0.4 mg/dL (0.2-1.3) 04/22/18 17:10 AST 31 U/L (14-36) 04/22/18 17:10 ALT 32 U/L (9-52) 04/22/18 17:10 Alkaline Phosphatase 80 U/L (38-126) 04/22/18 17:10 Ammonia <9 umol/L (<30) 04/22/18 17:10 Total Creatine Kinase 27 U/L (30-135) L 04/22/18 17:10 CK-MB (CK-2) <0.2 ng/mL (0.0-2.4) 04/22/18 17:10 CK-MB (CK-2) Rel Index 04/22/18 17:10 Troponin I <0.012 ng/mL (0.000-0.034) 04/22/18 17:10 Total Protein 7.2 g/dL (6.3-8.2) 04/22/18 17:10 Albumin 4.3 g/dL (3.5-5.0) 04/22/18 17:10 Total T4 4.0 ug/dL (4.5 - 10.9) L 04/22/18 17:10 Total T3 96.0 ng/dL (60.0-180.0) 04/22/18 17:10 Urine Color Yellow 04/22/18 17:10 Urine Appearance Clear (Clear) 04/22/18 17:10 Urine pH 8.5 (5.0-8.0) H 04/22/18 17:10 Ur Specific [place] 1.013 (1.001-1.035) 04/22/18 17:10 Urine Protein 3+ (Negative) H 04/22/18 17:10 Urine Glucose (UA) Negative (Negative) 04/22/18 17:10 Urine Ketones Negative (Negative) 04/22/18 17:10 Urine Blood Moderate (Negative) H 04/22/18 17:10 Urine Nitrite Negative (Negative) 04/22/18 17:10 Urine Bilirubin Negative (Negative) 04/22/18 17:10 Urine Urobilinogen <2.0 mg/dL (<2.0) 04/22/18 17:10 Ur Leukocyte Esterase Negative (Negative) 04/22/18 17:10 Urine RBC 30 /hpf (0-5) H 04/22/18 17:10 Urine WBC 6 /hpf (0-5) H 04/22/18 17:10 Ur Squamous Epith Cells 8 /hpf (0-4) H 04/22/18 17:10 Hyaline Casts 4 /lpf (0-2) H 04/22/18 17:10 Urine Mucus Rare /hpf (None) H 04/22/18 17:10 Urine Opiates Screen Not Detected (NotDetected) 04/22/18 17:10 Ur Oxycodone Screen Not Detected (NotDetected) 04/22/18 17:10 Urine Methadone Screen Not Detected (NotDetected) 04/22/18 17:10 Ur Propoxyphene Screen Not Detected (NotDetected) 04/22/18 17:10 Ur Barbiturates Screen Detected (NotDetected) H 04/22/18 17:10 U Tricyclic Antidepress Not Detected (NotDetected) 04/22/18 17:10 Ur Phencyclidine Scrn Not Detected (NotDetected) 04/22/18 17:10 Ur Amphetamines Screen Not Detected (NotDetected) 04/22/18 17:10 U Methamphetamines Scrn Not Detected (NotDetected) 04/22/18 17:10 U Benzodiazepines Scrn Not Detected (NotDetected) 04/22/18 17:10 Urine Cocaine Screen Not Detected (NotDetected) 04/22/18 17:10 U Marijuana (THC) Screen Not Detected (NotDetected) 04/22/18 17:10 Influenza Type A RNA Not Detected (Not Detectd) 04/23/18 22:00 Influenza Type B (PCR) Not Detected (Not Detectd) 04/23/18 22:00 Microbiology 04/22/18 17:10 Urine,Voided Urine Culture - Final Assessment and Plan (1) Giddiness Status: Acute Priority: Medium Code(s): R42 - DIZZINESS AND GIDDINESS SNOMED Code(s): 927122596 (2) Cognitive social or emotional deficit following unspecified cerebrovascular disease Narrative/Plan: 62-year-old female who has a recent significant past medical history of acute renal failure find evidence of Goodpasture's disease. Treated with plasmapheresis and then cyclophosphamide as well as steroid therapy. She is on antibacterial prophylaxis with Bactrim and receiving hemodialysis for her acute renal failure. She is doing relatively well until the sudden onset of the emotional change which she started to have excessive and inappropriate laughter. She also is having some difficulty with some concentration and seems to be slightly improved at this point in time. She does have very little ability to control the laughter but the believes it might be slightly improved then it was 48 hours prior. She's had no antecedent fever, chills or rigors. Her mentation is clear with no evidence of encephalopathy. With the underlying immunocompromised status is concerns about potential abnormalities. Given all these findings there is concerns underlying neurological etiology of her symptoms. In consequently transferred to a higher level of care with neurological assessment has been requested. Her MRI shows no stated abnormalities. Specifically nothing that would be indicative of PML or of [employer] lymphoma which are concerns and persons are immunocompromised. with central nervous system vasculitis also being of concern given her history of underlying autoimmune disease. The patient does not have encephalopathy and underlying acute viral encephalitis does not seem to be occurring at this point in time. Status: Acute Code(s): I69.915 - COGNITIVE SOCIAL OR EMO DEF FOLLOWING UNSP CEREBVASC DISEASE SNOMED Code(s): 229097783 Plan: 62-year-old female who has a recent significant past medical history of acute renal failure find evidence of Goodpasture's disease. Treated with plasmapheresis and then cyclophosphamide as well as steroid therapy. She is on antibacterial prophylaxis with Bactrim and receiving hemodialysis for her acute renal failure. She is doing relatively well until the sudden onset of the emotional change which she started to have excessive and inappropriate laughter. She also is having some difficulty with some concentration and seems to be slightly improved at this point in time. She does have very little ability to control the laughter but the believes it might be slightly improved then it was 48 hours prior. She's had no antecedent fever, chills or rigors. Her mentation is clear with no evidence of encephalopathy. With the underlying immunocompromised status is concerns about potential abnormalities. MRI failed to reveal any significant underlying disease state such as PML or space-occupying lesions such as lymphoma. However underlying central nervous system vasculitis, seizures, or other metabolic medication induced effectrs are all of concern. It is related to be transferred to a higher level of care or further neurological evaluations can be performed. In her workup lumbar puncture may be considered, if so CSF VDRL should be performed.
--- NOTE | 2018-04-24 22:23 | PN ---
PROGRESS NOTE Patient is seen for followup for end-stage renal disease. Patient was admitted to the hospital with vague complaints of confusion, weakness, headaches and uncontrollable episodes of laughter. She did have an MRI of the brain which was unremarkable. Patient was evaluated by Psychiatry, and an EEG was recommended. Patient needed to be seen by Neurology and is therefore being transferred to [facility]. She is scheduled for hemodialysis today. Patient is maintained on Cytoxan on a much lower dose with plans for discontinuation soon, as she has not responded and remains dialysis- dependent. Patient had underlying Goodpasture's syndrome and ANCA vasculitis. On examination this morning, blood pressure was 179/93. Patient had just finished her EEG. Heart rate about 80 per minute. She is afebrile. EXAMINATION OF THE HEART: S1 and S2. EXAMINATION OF LUNGS: Bilateral breath sounds are heard. ABDOMEN: Soft, non-tender. Examination of lower extremities shows no evidence of edema. TOOL GRINDER exam is grossly intact. Labs show hemoglobin 10.8, sodium 139, potassium 5.0, creatinine 4.57. ASSESSMENT: 1. Acute kidney injury secondary to Goodpasture's syndrome and ANCA vasculitis, status post plasmapheresis. Patient remains hemodialysis-dependent. She is maintained on Cytoxan. Prednisone is being tapered. Urine output remains low and serum creatinine has not significantly improved. Plans are to discontinue the Cytoxan soon. 2. Uncontrollable episodes of laughter, etiology unclear. Consideration for possible partial seizures. EEG has been done. Patient needs to be seen by Neurology, for which she will be transferred to [facility]. 3. Hypertension currently. Blood pressure is elevated. It had been much better yesterday. PLAN: Hemodialysis today. Await neurology input. MMODL / IJN: [id number] /
--- NOTE | 2018-04-25 09:27 | EEG ---
ELECTROENCEPHALOGRAM REPORT DATE OF SERVICE: 04/24/2018 ELECTROENCEPHALOGRAM (EEG) REPORT: TECHNIQUE: A routine 18-channel EEG was performed with video using the 10-20 international placement system. HISTORY: Patient anxious, presents with laughing episodes brought on by a euphoric sensation and noise stimulation. Patient feels drunk. Patient was diagnosed recently with end-stage renal failure and Goodpasture's syndrome. CURRENT MEDICATIONS: Melatonin, cyclophosphamide. STUDY DURATION: 29 minutes. FINDINGS: Please note that portions of the recording were limited in their interpretation by the presence of muscle artifact. BACKGROUND: The background activity consisted of 9-10 Hz rhythmic waveforms, symmetrically distributed to both posterior quadrants. ACTIVATION: Hyperventilation induced mild physiological slowing. PHOTIC STIMULATION: Symmetric driving seen. SLEEP: None. ABNORMALITIES: None. IMPRESSION: Normal EEG. No epileptiform activity was present. No seizures were recorded. MMYANETHL / IJN: [id number] /
== END 2018-04-24 18:15 | disposition short-term general hospital (02) ==
LOC: EC 16:11 → 4SSUR 21:42
PROVIDERS: ADMIT Internal Medicine; ATTEND Internal Medicine
DX: R41.82 Altered mental status, unspecified (principal); R42 Dizziness and giddiness; I12.0 Hypertensive chronic kidney disease with stage 5 chronic kidney disease or end stage renal disease; N18.6 End stage renal disease; R13.10 Dysphagia, unspecified; N17.9 Acute kidney failure, unspecified; E06.3 Autoimmune thyroiditis; G43.909 Migraine, unspecified, not intractable, without status migrainosus; M31.0 Hypersensitivity angiitis; J45.909 Unspecified asthma, uncomplicated; K90.0 Celiac disease; I77.6 Arteritis, unspecified; Z79.899 Other long term (current) drug therapy; Z87.891 Personal history of nicotine dependence; Z96.653 Presence of artificial knee joint, bilateral; Z99.2 Dependence on renal dialysis; Z79.2 Long term (current) use of antibiotics; Z79.890 Hormone replacement therapy; Z79.52 Long term (current) use of systemic steroids; Z88.6 Allergy status to analgesic agent; Z88.1 Allergy status to other antibiotic agents; Z88.0 Allergy status to penicillin; Z88.2 Allergy status to sulfonamides; Z88.8 Allergy status to other drugs, medicaments and biological substances; Z91.018 Allergy to other foods; Z98.51 Tubal ligation status; Z88.5 Allergy status to narcotic agent
CPT/HCPCS: 96361 ×4; 96374; 99285; 36415; 94760; 95819; 93005; 80053; 80048 ×2; 82140; 82550; 82553; 82803; 83605; 84436; 84484; 85025 ×2; 85610; 85730; 81001; 84480; 80306; 87086; 87502; 71046; 93970; 70450; 70551; G0378 ×3; J0360; 90935

== ENCOUNTER 2018-05-06 18:01 | Emergency (ER) | payer MEDICAID ==
[2018-05-06 18:36] VITALS: PULSE 88
[2018-05-06] MEDS ORDERED: ONDANSETRON 4 MG/2 ML VIAL IVP STA (20:03)
[2018-05-06] MEDS ORDERED: SODIUM CHLORIDE 0.9% 500 ML 500 ML IV STA (20:03)
[2018-05-06] MEDS ORDERED: BUTALB/APAP/CAFF 50-325-40MG TAB PO STA (20:05)
--- NOTE | 2018-05-06 20:30 | ED ---
General Adult HPI - General Source: patient, RN notes reviewed, old records reviewed Mode of arrival: ambulatory Limitations: no limitations <Robert Higgins - Last Filed: 05/06/18 21:43> <Jennifer Prince - Last Filed: 05/07/18 08:04> - General Chief complaint: Nausea/Vomiting/Diarrhea Stated complaint: dehydrated Time Seen by Provider: 05/06/18 19:46 - History of Present Illness Initial comments: 62-year-old female patient past medical history of end-stage renal disease, migraine headaches, presents to ED with approximately 6 hours of migraine headache, nausea and vomiting. Patient was at dialysis today, she feels as if she is very dry. Patient reports that while completing her dialysis treatment she began to experience some nausea and vomiting. Patient states that she also developed a migraine headache which is similar to the migraine headache she has had in the past, is located in her occipital lobe and at times radiates up to her right orbit. Denies worst headache of life, denies thunderclap. She reports that she has had 3 episodes of emesis. Patient states that she did attempt to take a Fioricet however she vomited shortly after. Patient recently had extensive intracranial investigations secondary to altered mental status after taking a medication approximately 2 weeks ago. The investigations included a brain MRI and a CT which did not display acute pathology. Patient reportedly also had a EEG, lumbar puncture which were reportedly negative. These occurred at [facility]. Pt states that she feels as if she is dehydrated which is causing her headache. Patient denies all other complaints. Systemic: Pt denies fatigue, myalgia, fever/chills, rash. Pt denies weakness, night sweats, weight loss. Neuro: Pt deniesv isual disturbances, syncope or pre-syncope. HEENT: Pt denies ocular discharge or irritation, otalgia, rhinorrhea, pharyngitis or notable lymphadenopathy. Cardiopulmonary: Pt denies chest pain, SOB, heart palpitations, dyspnea on exertion. Abdominal/GI: Pt denies abdominal pain, n/v/d. : Pt denies dysuria, burning w/ urination, frequency/urgency. Denies new onset urinary or bowel incontinence. MSK: Pt denies myalgia, loss of strength or function in extremities. Neuro: Pt denies new onset weakness, paresthesias. (Robert Higgins) - Related Data Home Medications Medication Instructions Recorded Confirmed Zafirlukast [Accolate] 20 mg PO DAILY 07/08/15 05/06/18 Thyroid,Pork [[place] Thyroid] 90 mg PO DAILY 04/01/17 05/06/18 Famotidine [Pepcid] 20 mg PO BID 04/22/18 05/06/18 predniSONE 10 mg PO DAILY 04/22/18 05/06/18 ALPRAZolam [Xanax] 0.25 mg PO TID PRN 05/06/18 05/06/18 Biotin 5 mg PO DAILY 05/06/18 05/06/18 Butalb/APAP/Caff 50-325-40Mg 1 tab PO Q4HR PRN 05/06/18 05/06/18 [Fioricet 50-325-40] Folic Acid-Vit B Complex-Vit C 1 cap PO DAILY 05/06/18 05/06/18 [Nephrocaps] Polyethylene Glycol 3350 [Miralax] 17 gm PO DAILY PRN 05/06/18 05/06/18 amLODIPine [Norvasc] 10 mg PO DAILY 05/06/18 05/06/18 diphenhydrAMINE [Benadryl] 25 mg PO HS PRN 05/06/18 05/06/18 hydrALAZINE HCL [Apresoline] 50 mg PO BID 05/06/18 05/06/18 Allergies Allergy/AdvReac Type Severity Reaction Status Date / Time ciprofloxacin [From Cipro] Allergy c-diff Verified 05/06/18 20:25 ciprofloxacin HCl Allergy Diarrhea Verified 05/06/18 20:25 [From Cipro] gemifloxacin mesylate Allergy Rash/Hives Verified 05/06/18 20:25 [From Factive] Penicillins Allergy Rash/Hives Verified 05/06/18 20:25 Sulfa (Sulfonamide Allergy Rash/Hives Verified 05/06/18 20:25 Antibiotics) wheat Allergy Anaphylaxis Verified 05/06/18 20:25 carvedilol [From Coreg] AdvReac Uncontrolled Verified 05/06/18 20:25 Laughter codeine AdvReac constipatio Verified 05/06/18 20:25 n NSAIDS (Non-Steroidal AdvReac hives Verified 05/06/18 20:25 Anti-Inflamma Review of Systems ROS Other: All systems not noted in ROS Statement are negative. <GiselaRobert J - Last Filed: 05/06/18 21:43> ROS Other: All systems not noted in ROS Statement are negative. <Jennifer Prince - Last Filed: 05/07/18 08:04> ROS Statement: Those systems with pertinent positive or pertinent negative responses have been documented in the HPI. Past Medical History Past Medical History: Asthma, Renal Disease, Thyroid Disorder Additional Past Medical History / Comment(s): Migranes and Sandrine's disease, celiac, GOODPASTURE DISEASE History of Any Multi-Drug Resistant Organisms: None Reported Date of last positivie culture/infection: None MDRO Source:: None Past Surgical History: Ear Surgery, Tubal Ligation, Uterine Ablation Additional Past Surgical History / Comment(s): Cardioversion Mar 2016,varicose vein procedure, x2, left total knee Past Anesthesia/Blood Transfusion Reactions: No Reported Reaction Additional Past Anesthesia/Blood Transfusion Reaction / Comment(s): no blood transfusion hx Past Psychological History: No Psychological Hx Reported Smoking Status: Former smoker Past Alcohol Use History: Occasional Past Drug Use History: None Reported - Past Family History Mother Family Medical History: Cancer Father Family Medical History: Cancer <Robert Higgins - Last Filed: 05/06/18 21:43> General Exam Limitations: no limitations <Robert Higgins - Last Filed: 05/06/18 21:43> <Jennifer Prince - Last Filed: 05/07/18 08:04> - General Exam Comments Initial Comments: Constitutional: NAD, AOX3, Pt has pleasant affect. HEENT: NC/AT, trachea midline, neck supple, no lymphadenopathy. Posterior pharynx non erythematous, without exudates. External ears appear normal, without discharge. Mucous membranes moist. Eyes PERRLA, EOM intact. There is no scleral icterus. No pallor noted. Cardiopulmonary: RRR, no murmurs, rubs or gallops, no JVD noted. Lungs CTAB in anterior and posterior miles. No peripheral edema. Abdominal exam: Abdomen soft and non-distended. Abdomen non-tender to palpation in all 4 quadrants. Bowel sounds active in LLQ. No hepatosplenomegaly. No ecchymosis Neuro: CN II-XII intact. No nuchal rigidity. No facial droop or focal deficit. MSK: No posterior calf tenderness bilaterally, homans sign negative bilaterally. Posterior tibialis and radial pulse +2 bilaterally. Sensation intact in upper and lower extremities. Full active ROM in upper and lower extremities, 5/5 stregnth. (Robert Higgins) Vital Signs 05/06/18 05/06/18 18:31 22:00 Temperature 97.8 F 98.5 F Pulse Rate 88 Respiratory 18 72 H Rate Blood Pressure 169/83 152/80 O2 Sat by Pulse 97 99 Oximetry Medical Decision Making - Lab Data Result diagrams: 05/06/18 20:16 05/06/18 20:16 <Robert Higgins - Last Filed: 05/06/18 21:43> - Lab Data Result diagrams: 05/06/18 20:16 05/06/18 20:16 <Jennifer Prince - Last Filed: 05/07/18 08:04> - Medical Decision Making 62-year-old female patient past medical history of end-stage renal disease, migraine headaches, presents to ED with approximately 6 hours of migraine headache, nausea and vomiting. Patient was at dialysis today, she feels as if she is very dry. Patient reports that while completing her dialysis treatment she began to experience some nausea and vomiting. Patient states that she also developed a migraine headache which is similar to the migraine headache she has had in the past, is located in her occipital lobe and at times radiates up to her right orbit. Denies worst headache of life, denies thunderclap. She reports that she has had 3 episodes of emesis. atient recently had extensive intracranial investigations secondary to altered mental status after taking a medication approximately 2 weeks ago. The investigations included a brain MRI and a CT which did not display acute pathology. Patient reportedly also had a EEG, lumbar puncture which were reportedly negative. Patient vital signs stable afebrile. Physical exam displayed a normal neurological exam. Laboratory studies revealed nonpresent CBC. CMP revealed increased creatinine, this finding was an event secondary to patient's ESRD. Patient headache resolved with IV fluids, Fioricet. Patient states that she is ready to be discharged. Patient to follow up with primary care provider in 1-2 days. Patient to return to ED if new symptoms develop or condition worsens in any way. Case discussed with Dr. Boston. (Robert Higgins) I was available for consultation in the emergency department. The history and physical exam were done by the midlevel provider. I was consulted for this patient's care. I reviewed the case with the midlevel provider and based on their presentation of the patient, I agree with the assessment, medical decision making and plan of care as documented. (Jennifer Prince) - Lab Data Lab Results 05/06/18 05/06/18 Range/Units 20:16 20:16 WBC 5.3 (3.8-10.6) k/uL RBC 3.41 L (3.80-5.40) m/uL Hgb 10.8 L (11.4-16.0) gm/dL Hct 32.2 L (34.0-46.0) % MCV 94.4 (80.0-100.0) fL MCH 31.7 (25.0-35.0) pg MCHC 33.5 (31.0-37.0) g/dL RDW 15.5 (11.5-15.5) % Plt Count 308 (150-450) k/uL Neutrophils % 68 % Lymphocytes % 17 % Monocytes % 10 % Eosinophils % 2 % Basophils % 0 % Neutrophils # 3.6 (1.3-7.7) k/uL Lymphocytes # 0.9 L (1.0-4.8) k/uL Monocytes # 0.5 (0-1.0) k/uL Eosinophils # 0.1 (0-0.7) k/uL Basophils # 0.0 (0-0.2) k/uL Sodium 136 L (137-145) mmol/L Potassium 4.1 (3.5-5.1) mmol/L Chloride 99 (98-107) mmol/L Carbon Dioxide 30 (22-30) mmol/L Anion Gap 7 mmol/L BUN 36 H (7-17) mg/dL Creatinine 2.64 H (0.52-1.04) mg/dL Est GFR (CKD-EPI)AfAm 22 (>60 ml/min/1.73 sqM) Est GFR (CKD-EPI)NonAf 19 (>60 ml/min/1.73 sqM) Glucose 94 (74-99) mg/dL Calcium 9.4 (8.4-10.2) mg/dL Total Bilirubin 0.4 (0.2-1.3) mg/dL AST 24 (14-36) U/L ALT 34 (9-52) U/L Alkaline Phosphatase 69 (38-126) U/L Total Protein 6.3 (6.3-8.2) g/dL Albumin 3.9 (3.5-5.0) g/dL Disposition Is patient prescribed a controlled substance at d/c from ED?: No Time of Disposition: 21:44 <Robert Higgins - Last Filed: 05/06/18 21:43> <Jennifer Prince - Last Filed: 05/07/18 08:04> Clinical Impression: Migraine headache Disposition: HOME SELF-CARE Condition: Stable Instructions (If sedation given, give patient instructions): Migraine Headache (ED) Additional Instructions: Patient to adhere to previously discussed treatment plan and will take medication(s) as directed. Patient to follow up with PCP in 1-2 days. Patient to return to ED if symptoms do not improve. Referrals: Oswald Mike MD [Primary Care Provider] - 1-2 days
[2018-05-06 20:41] LABS: Basophils % (A) 0 %; Eosinophils # (A) 0.1 k/uL (0-0.7); Eosinophils % (A) 2 %; HCT 32.2 % (34.0-46.0); HGB 10.8 gm/dL (11.4-16.0); Lymphocytes # (A) 0.9 k/uL (1.0-4.8); Lymphocytes % (A) 17 %; MCH 31.7 pg (25.0-35.0); MCHC 33.5 g/dL (31.0-37.0); MCV 94.4 fL (80.0-100.0); Monocytes # (A) 0.5 k/uL (0-1.0); Monocytes % (A) 10 %; Neutrophils # (A) 3.6 k/uL (1.3-7.7); Neutrophils % (A) 68 %; Platelet Count 308 k/uL (150-450); RBC 3.41 m/uL (3.80-5.40); RDW 15.5 % (11.5-15.5); WBC 5.3 k/uL (3.8-10.6)
[2018-05-06 20:51] LABS: Albumin 3.9 g/dL (3.5-5.0); Calcium 9.4 mg/dL (8.4-10.2); Potassium 4.1 mmol/L (3.5-5.1); Total Bilirubin 0.4 mg/dL (0.2-1.3); Total Protein 6.3 g/dL (6.3-8.2)
[2018-05-06 22:07] VITALS: BP 152/80; RESP 72; TEMP 98.5
== END 2018-05-06 22:04 | disposition home or self-care (01) ==
LOC: EC 18:01
DX: G43.909 Migraine, unspecified, not intractable, without status migrainosus (principal); N18.6 End stage renal disease; E06.3 Autoimmune thyroiditis; Z79.899 Other long term (current) drug therapy; Z79.890 Hormone replacement therapy; Z79.51 Long term (current) use of inhaled steroids; Z88.1 Allergy status to other antibiotic agents; Z88.0 Allergy status to penicillin; Z88.2 Allergy status to sulfonamides; Z88.8 Allergy status to other drugs, medicaments and biological substances; Z91.018 Allergy to other foods; Z88.5 Allergy status to narcotic agent; Z88.6 Allergy status to analgesic agent; Z87.891 Personal history of nicotine dependence; Z99.2 Dependence on renal dialysis
CPT/HCPCS: 36415; 80053; 85025; 99284; 96374; J2405

== ENCOUNTER → 2018-05-20 | Outpatient (CLI) | payer MEDICAID ==
[2018-05-20 10:42] LABS: Anisocytosis Slight; Basophils % (A) 1 %; Eosinophils # (A) 0.2 k/uL (0-0.7); Eosinophils % (A) 5 %; HCT 31.3 % (34.0-46.0); HGB 10.1 gm/dL (11.4-16.0); Lymphocytes # (A) 0.9 k/uL (1.0-4.8); Lymphocytes % (A) 21 %; MCH 31.5 pg (25.0-35.0); MCHC 32.1 g/dL (31.0-37.0); MCV 97.9 fL (80.0-100.0); Macrocytosis Slight; Mean Platelet Volume 6.2; Monocytes # (A) 0.3 k/uL (0-1.0); Monocytes % (A) 7 %; Neutrophils # (A) 2.9 k/uL (1.3-7.7); Neutrophils % (A) 64 %; Platelet Count 326 k/uL (150-450); RDW 16.2 % (11.5-15.5); WBC 4.5 k/uL (3.8-10.6)
[2018-05-20 10:50] LABS: INR 0.9 (<1.2); Partial Thromboplastin Time 22.3 sec (22.0-30.0); Prothrombin Time 9.7 sec (9.0-12.0)
[2018-05-20 11:34] LABS: Appearance,Urine Clear (Clear); Bacteria,Urine Rare /hpf; Bilirubin,Urine Negative (Negative); Blood,Urine Small (Negative); Color,Urine Yellow; Glucose,Urine (UA) Negative (Negative); Ketones,Urine Negative (Negative); Leukocyte Esterase,Urine Trace (Negative); Nitrite,Urine Negative (Negative); PH, Urine 7.5 (5.0-8.0); Protein,Urine 2+ (Negative); RBC,Urine 9 /hpf (0-5); Squamous Epithelial Cell,Urine 5 /hpf (0-4); Urobilinogen,Urine <2.0 mg/dL (<2.0); WBC,Urine 1 /hpf (0-5)
[2018-05-20 18:41] LABS: Albumin 4.1 g/dL (3.80-4.90); Albumin/Globulin Ratio 2.05 (1.60-3.17); Anion Gap 9.5 mmol/L (4.00-12.00); Calcium 9.4 mg/dL (8.7-10.3); Carbon Dioxide 26.5 mmol/L (21.6-31.8); Potassium 4.9 mmol/L (3.5-5.5); Total Bilirubin 0.2 mg/dL (0.2-1.2); Total Protein 6.1 g/dL (6.2-8.2)
[2018-05-20 18:53] LABS: T4, Free (Free Thyroxine) 0.8 ng/dL (0.80-1.80)
== END ==
LOC: LABWHC1 10:01
PROVIDERS: ATTEND Family Medicine
DX: Z01.812 Encounter for preprocedural laboratory examination (principal); E06.3 Autoimmune thyroiditis; N39.0 Urinary tract infection, site not specified; E03.9 Hypothyroidism, unspecified
CPT/HCPCS: 36415; 80053; 81001; 84439; 84443; 84481; 85025; 85610; 85730; 87086

== ENCOUNTER → 2018-08-12 | Outpatient (CLI) | payer MEDICAID ==
[2018-08-13 01:38] LABS: T4, Free (Free Thyroxine) 0.9 ng/dL (0.80-1.80)
== END | disposition home or self-care (01) ==
LOC: LABWHC1 17:09
PROVIDERS: ATTEND Nurse Practitioner Family
DX: E06.3 Autoimmune thyroiditis (principal)
CPT/HCPCS: 36415; 84439; 84443

== ENCOUNTER → 2018-10-28 | Outpatient (CLI) | payer MEDICAID ==
--- NOTE | 2018-10-28 15:48 | XR ---
EXAMINATION TYPE: XR chest 2V DATE OF EXAM: 10/28/2018 COMPARISON: Prior chest x-ray 04/22/2018 HISTORY: Cough TECHNIQUE: Frontal and lateral views of the chest are obtained. FINDINGS: There is no focal air space opacity, pleural effusion, or pneumothorax seen. The cardiac silhouette size is within normal limits. There is a spinal curvature. The osseous structures are int act. There is been interval removal of the right-sided central venous catheter. There are prominent l rebeca volumes which may be indicative of COPD with bronchial wall thickening. IMPRESSION: Correlate for possible bronchitis, reactive airways disease.
== END | disposition home or self-care (01) ==
LOC: RADXRMAIN 15:11
PROVIDERS: ATTEND Nurse Practitioner Family
DX: R05 Cough (principal)
CPT/HCPCS: 71046

== ENCOUNTER → 2018-11-13 | Outpatient (CLI) | payer MEDICAID ==
[2018-11-14 11:52] LABS: Anti-Glomerular Basement Memb 2 UNITS (0-20)
== END | disposition home or self-care (01) ==
LOC: LABWHC1 10:10
PROVIDERS: ATTEND Internal Medicine Nephrology
DX: L95.9 Vasculitis limited to the skin, unspecified (principal)
CPT/HCPCS: 36415; 83516; 86160; 86255

== ENCOUNTER → 2018-11-18 | Outpatient (CLI) | payer MEDICAID ==
--- NOTE | 2018-11-20 09:34 | MM ---
Reason for exam: screening (asymptomatic). Last mammogram was performed 2 years and 2 months ago. History: Patient is postmenopausal. Family history of breast cancer in maternal grandmother and breast cancer in maternal aunt. Benign cyst aspiration of the left breast, January 01, 2003. 2 benign core biopsies of the left breast. Took hormonal contraceptives for 4 years. Physical Findings: A clinical breast exam by your physician is recommended on an annual basis and results should be correlated with mammographic findings. MG 3D Screening Mammo W/Cad Bilateral CC and MLO view(s) were taken. Prior study comparison: September 19, 2016, bilateral MG 3d screening mammo w/cad. September 07, 2015, bilateral MG 3d screening mammo w/cad. The breast tissue is heterogeneously dense. This may lower the sensitivity of mammography. Previous mammotome biopsy in the left breast. There is chronic nodularity in the left breast. No significant changes when compared with prior studies. ASSESSMENT: Benign, BI-RAD 2 RECOMMENDATION: Routine screening mammogram of both breasts in 1 year.
== END | disposition home or self-care (01) ==
LOC: RADMAMWWP 15:18
PROVIDERS: ATTEND Family Medicine
DX: Z12.31 Encounter for screening mammogram for malignant neoplasm of breast (principal); Z80.3 Family history of malignant neoplasm of breast
CPT/HCPCS: 77063; 77067

== ENCOUNTER 2019-01-12 08:46 | Day surgery (SDC) | payer MEDICAID ==
[2019-01-08 10:10] VITALS: BMI 22.9
--- NOTE | 2019-01-11 19:27 | HP ---
HISTORY AND PHYSICAL CHIEF COMPLAINT: Fluid in the right middle ear space. HISTORY OF PRESENT ILLNESS: The patient is a very pleasant 63-year-old female who is well known to my office and presented recently complaining of a plugged sensation in her right ear. The patient at that time stated that the symptom had been there for approximately 1 week. At the time that she was seen, clinical examination here revealed chronic bilateral serous otitis media so-called glue ear. The patient was placed on one course of oral antibiotic, Zithromax tri-pack and 2 courses of Decadron Dosepak. Upon returning to the office after finishing the 2nd course of Decadron, the patient stated that the ear was still plugged. It was therefore recommended that she undergo a right myringotomy with insertion of a ventilation tube under IV sedation with MAC. PAST MEDICAL HISTORY: Past medical history reveals that the patient has: ALLERGIES: TO PENICILLIN, CIPROFLOXACIN, NSAIDS, CODEINE AND SULFA. MEDICATIONS: Current medications include [place] thyroid replacement, prednisone, Accolade and Prilosec. REVIEW OF SYSTEMS: Cardiovascular is negative. RESPIRATORY: Positive for asthma. Gastrointestinal is positive for GERD, gastroesophageal reflux disorder. Metabolic/Endocrine is positive for hypothyroidism. The remainder of the review of systems is unremarkable. PHYSICAL EXAMINATION: This patient is a pleasant 63-year-old female who was alert and oriented. HEENT examination: Patient is normocephalic. Left tympanic membrane middle ear space is free of any fluid or infection. Examination of the right ear reveals left tympanic membrane is dull with fluid in the right middle ear space. Pupils are equal, round, reactive to light and accommodation. Extraocular movements within normal limits. Intranasal examination reveals moderate septal deviation with compensatory hypertrophy of the inferior turbinates and a moderate amount of mucus on the mucous membranes and draining down the posterior pharynx. Cranial nerves 2 through 12 and remainder of the head and neck exam are within normal limits. Chest/cardiovascular: Both lung miles are clear to percussion and auscultation. Patient is in regular sinus rhythm. S1 and S2 are present without any murmurs. ABDOMEN: There is no evidence of masses, megaly, or tenderness. ABDOMEN: Soft. Musculoskeletal and neurological within normal limits. The urological is positive for chronic renal failure. The remainder of the review of systems is essentially unremarkable. IMPRESSION: Chronic right serous otitis media. PLAN: The patient is scheduled undergo a right myringotomy with insertion of a ventilation tube in the right ear under IV sedation with MAC in a.m. Attention RNs in the pre-surgical area: I have not ordered any pre-surgical prophylactic antibiotics for this patient. If the pharmacy department sends any pre- surgical prophylactic antibiotics to the pre-surgical area for this patient, that order should be cancelled, the medication should be returned to the pharmacy department, and make sure that the patient's account is credited appropriately. I have discussed the risks, benefits and alternative therapies for the above-mentioned procedure and for both sedation/analgesia as well as necessary blood product administration, if indicated, as they pertain to this patient. The patient has indicated his or her understanding and acceptance of the risks and procedures discussed. MMLURDES / DAVIN: [id number] /
--- NOTE | 2019-01-11 19:32 | HP ---
HISTORY AND PHYSICAL ADDENDUM: CHIEF COMPLAINT: Fluid in the right middle ear space. PREVIOUS SURGERIES: Previous surgeries include bilateral myringotomy with insertion of ventilation tubes x2, right myringotomy with insertion of ventilation tubes x1, tonsillectomy, adenoidectomy, marsupialization of a Bartholin cyst, and 2 C sections. The patient is 2 para, 0 , 2 C-sections and 0 miscarriages. I have discussed the risks, benefits and alternative therapies for the above-mentioned procedure and for both sedation/analgesia as well as necessary blood product administration, if indicated, as they pertain to this patient. The patient has indicated his or her understanding and acceptance of the risks and procedures discussed. MMODL / IJN: [id number] /
[~2019-01-12 08:46] MED LIST changes: -ACETAMINOPHEN TAB 500 MG TAB PO ONE; +HYDROmorphone 0.5 MG/0.5 ML SYRINGE IVP PRN; -MORPHINE SULFATE 4 MG/ML SYRINGE IV PRN; +Pre Op ABX Message 1 EACH MISC MISCELLANE ONE; -TRANEXAMIC ACID 1,000 MG in SODIUM CHLORIDE 0.9% 50 ML IVPB ONE
[2019-01-12 09:13] VITALS: RESP 16; TEMP 97.9
[2019-01-12] MEDS ORDERED: OFLOXACIN 0.3% OTIC DROPS 5 ML BTL RIGHT EAR ONE (09:39)
[2019-01-12] MEDS ORDERED: PROPOFOL 10 MG/ML 20 ML VIAL IV ONE (10:01)
[2019-01-12] MEDS ORDERED: MIDAZOLAM 2 MG/2 ML VIAL ONE (10:01)
[2019-01-12] MEDS ORDERED: fentaNYL (PF) 50 MCG/ML 2 ML AMP ONE (10:01)
[2019-01-12] MEDS ORDERED: NEOMYCIN-POLYMYXIN-HC (3.5-10,000-10 MG) OTIC DROPS 10 ML BTL RIGHT EAR STA (10:08)
[2019-01-12 10:50] VITALS: BP 136/61; PULSE 57
--- NOTE | 2019-01-12 18:15 | OP ---
OPERATIVE REPORT PREOP DIAGNOSIS: Chronic right serous otitis media. POSTOP DIAGNOSIS: Chronic right serous otitis media. ANESTHESIA: IV sedation with MAC. OPERATIVE PROCEDURE: Right myringotomy with insertion of a Christine type T-tube ventilation tube. SURGEON: Dr. Gambino. COMPLICATIONS: None. ESTIMATED BLOOD LOSS: Zero. PROCEDURE DESCRIPTION: The patient is placed on operating table in supine position. After uneventful IV sedation, satisfactory sedation was obtained. Next the patient's right ear was draped in the usual and customary fashion. Following this, using the Zeiss operative operating microscope and a #3 aural speculum, the right external auditory canal was cleansed of all wax and debris. Next, an incision was made in the anterior inferior quadrant of the right tympanic membrane using the myringotomy knife. The right middle ear space was suctioned free of all fluid. Next, a Christine T-type ventilation tube was inserted in the usual and customary fashion without difficulty. At this point, the procedure was terminated. There were no intraoperative complications. The patient tolerated procedure well and was returned to the recovery room in satisfactory condition. MMODL / IJN: [id number] /
== END 2019-01-12 11:02 | disposition home or self-care (01) ==
LOC: OR 08:46
PROVIDERS: ATTEND Otolaryngology
DX: H65.21 Chronic serous otitis media, right ear (principal); J45.909 Unspecified asthma, uncomplicated; E03.9 Hypothyroidism, unspecified; K21.9 Gastro-esophageal reflux disease without esophagitis; Z88.0 Allergy status to penicillin; Z88.1 Allergy status to other antibiotic agents; Z88.2 Allergy status to sulfonamides; Z88.5 Allergy status to narcotic agent; Z88.6 Allergy status to analgesic agent; Z99.2 Dependence on renal dialysis; Z79.51 Long term (current) use of inhaled steroids; Z79.890 Hormone replacement therapy; Z79.899 Other long term (current) drug therapy; Z98.890 Other specified postprocedural states
CPT/HCPCS: 69436; J2250; J2405; J3010; J2704

== ENCOUNTER → 2019-05-04 | Outpatient (CLI) | payer MEDICAID ==
[2019-05-04 15:36] LABS: Basophils % (A) 1 %; Eosinophils # (A) 0.3 k/uL (0-0.7); Eosinophils % (A) 6 %; HCT 32.8 % (34.0-46.0); HGB 11.3 gm/dL (11.4-16.0); Lymphocytes # (A) 1.1 k/uL (1.0-4.8); Lymphocytes % (A) 25 %; MCH 31.6 pg (25.0-35.0); MCHC 34.4 g/dL (31.0-37.0); MCV 91.8 fL (80.0-100.0); Mean Platelet Volume 7.5; Monocytes # (A) 0.3 k/uL (0-1.0); Monocytes % (A) 6 %; Neutrophils # (A) 2.6 k/uL (1.3-7.7); Neutrophils % (A) 59 %; Platelet Count 273 k/uL (150-450); RBC 3.58 m/uL (3.80-5.40); RDW 15.1 % (11.5-15.5); WBC 4.5 k/uL (3.8-10.6)
[2019-05-05 02:17] LABS: ALT 18 U/L (8-44); AST 26 U/L (13-35); African American GFR (CKD) 7.9 (60.0-200.0); Albumin/Globulin Ratio 2.35 (1.60-3.17); Alkaline Phosphatase 107 U/L (41-126); BUN/Creat Ratio 9.02 Ratio (12.00-20.00); Bilirubin, Conjugated <0.20 mg/dL (0.20-0.40); Calcium 9.8 mg/dL (8.7-10.3); Carbon Dioxide 28.5 mmol/L (21.6-31.8); Chloride 98 mmol/L (96-109); Cholesterol 274 mg/dL (0-200); GGT 50 U/L (0-38); Glucose 120 mg/dL (70-110); LDH 199 U/L (120-246); Non-African American GFR(CKD) 6.8 (60.0-200.0); Potassium 4.1 mmol/L (3.5-5.5); Sodium 141 mmol/L (135-145); Total Bilirubin 0.4 mg/dL (0.3-1.2); Total Protein 6.7 g/dL (6.2-8.2)
[2019-05-05 05:35] LABS: Hepatitis B Core IgM Non-Reactive (Non-Reactive); Hepatitis B Surface AB- Quant 3.5 mIU/mL; Hepatitis B Surface Antibody Non-Reactive (Non-Reactive); Hepatitis B Surface Antigen Non-Reactive (Non-Reactive); Hepatitis C IgG Antibody Non-Reactive (Non-Reactive)
[2019-05-05 05:53] LABS: EBV - VCA (IgG) >750.0 U/mL (<18.0); EBV - VCA IgM <10.0 U/mL (<36.0)
[2019-05-05 09:56] LABS: HIV 1 AB Non-Reactive (Non-Reactive); HIV 2 AB Non-Reactive (Non-Reactive); HIV AB P24 Non-Reactive (Non-Reactive); HIV P24 AG Non-Reactive (Non-Reactive)
== END | disposition home or self-care (01) ==
LOC: LABWHC1 15:00
PROVIDERS: ATTEND Surgery
DX: Z11.4 Encounter for screening for human immunodeficiency virus [HIV] (principal); Z11.3 Encounter for screening for infections with a predominantly sexual mode of transmission; Z11.59 Encounter for screening for other viral diseases; Z01.83 Encounter for blood typing; B25.9 Cytomegaloviral disease, unspecified; K71.6 Toxic liver disease with hepatitis, not elsewhere classified; B17.10 Acute hepatitis C without hepatic coma; E80.7 Disorder of bilirubin metabolism, unspecified; R68.89 Other general symptoms and signs; D53.9 Nutritional anemia, unspecified; E78.00 Pure hypercholesterolemia, unspecified
CPT/HCPCS: 36415; 80053; 82465; 82977; 83615; 85025; 86480; 86644; 86665; 86704; 86705; 86706; 86780; 86803; 86900; 86901; 87340; 87390; 87522

== ENCOUNTER → 2019-09-23 | Outpatient (CLI) | payer MEDICAID ==
[2019-09-23 13:37] LABS: HCT 34.6 % (34.0-46.0); HGB 11.2 gm/dL (11.4-16.0); MCH 30.1 pg (25.0-35.0); MCHC 32.4 g/dL (31.0-37.0); Mean Platelet Volume 7.1; Platelet Count 264 k/uL (150-450); RBC 3.72 m/uL (3.80-5.40); RDW 15.3 % (11.5-15.5); WBC 6.1 k/uL (3.8-10.6)
[2019-09-23 20:42] LABS: African American GFR (CKD) 13.4 (60.0-200.0); Albumin 4.6 g/dL (3.80-4.90); Albumin/Globulin Ratio 1.92 (1.60-3.17); Anion Gap 11.9 mmol/L (4.00-12.00); BUN/Creat Ratio 9.49 Ratio (12.00-20.00); Calcium 9.9 mg/dL (8.7-10.3); Carbon Dioxide 29.1 mmol/L (21.6-31.8); Chol/HDL Ratio 4.36; Globulin 2.4 g/dL (1.6-3.3); LDL Cholesterol,Calculated 152.2 mg/dL (0.0-131.0); Non-African American GFR(CKD) 11.6 (60.0-200.0); Potassium 4.4 mmol/L (3.5-5.5); Total Bilirubin 0.5 mg/dL (0.3-1.2); VLDL Calculation 45.8 mg/dL (5.00-40.00)
[2019-09-23 20:51] LABS: T4, Free (Free Thyroxine) 0.9 ng/dL (0.80-1.80)
== END | disposition home or self-care (01) ==
LOC: LABWHC1 10:44
PROVIDERS: ATTEND Family Medicine
DX: Z00.00 Encounter for general adult medical examination without abnormal findings (principal); E06.3 Autoimmune thyroiditis
CPT/HCPCS: 36415; 80053; 80061; 84439; 84443; 84481; 85027

== ENCOUNTER → 2019-12-31 | Outpatient (CLI) | payer MEDICAID ==
--- NOTE | 2020-01-04 12:28 | MM ---
Reason for exam: screening (asymptomatic). Last mammogram was performed 1 year and 1 month ago. History: Patient is postmenopausal. Family history of breast cancer in maternal grandmother and breast cancer in maternal aunt. Benign cyst aspiration of the left breast, January 01, 2003. 2 benign core biopsies of the left breast. Took hormonal contraceptives for 4 years. Physical Findings: A clinical breast exam by your physician is recommended on an annual basis and results should be correlated with mammographic findings. MG 3D Screening Mammo W/Cad Bilateral CC and MLO view(s) were taken. Prior study comparison: November 18, 2018, bilateral MG 3d screening mammo w/cad. September 19, 2016, bilateral MG 3d screening mammo w/cad. The breast tissue is heterogeneously dense. This may lower the sensitivity of mammography. Previous mammotome biopsy in the left breast x 2. There is chronic nodularity in the left breast. No significant changes when compared with prior studies. ASSESSMENT: Benign, BI-RAD 2 RECOMMENDATION: Routine screening mammogram of both breasts in 1 year.
== END | disposition home or self-care (01) ==
LOC: RADMAMWWP 16:31
PROVIDERS: ATTEND Family Medicine
DX: Z12.31 Encounter for screening mammogram for malignant neoplasm of breast (principal)
CPT/HCPCS: 77063; 77067

== ENCOUNTER → 2020-04-15 | Outpatient (CLI) | payer MEDICAID ==
--- NOTE | 2020-04-15 14:19 | US ---
EXAMINATION TYPE: US kidneys/renal and bladder DATE OF EXAM: 04/15/2020 COMPARISON: CT 05/04/19, US 11/10/17 CLINICAL HISTORY: Z76.82 AWAITING ORGAN TRANSPLANT. Patient states she has Goodpasture Disease. EXAM MEASUREMENTS: Right Kidney: 10.8 x 4.5 x 4.2 cm cm Left Kidney: 9.7 x 4.0 x 3.8cm cm Post Void Residual Volume: 18.9 mL Right Kidney: Decreased renal cortex. No hydronephrosis or masses seen Left Kidney: Decreased renal cortex. No hydronephrosis or masses seen Bladder: wnl Bilateral Jets seen: No Normal Post Void Residual: Yes There is no evidence for hydronephrosis at this point in time. No nephrolithiasis is seen. No deedee s are identified. The urinary bladder is anechoic. Bilateral ureteral jets are seen. IMPRESSION: Renal parenchymal thinning. Otherwise unremarkable study
--- NOTE | 2020-04-15 14:47 | XR ---
EXAMINATION TYPE: XR chest 2V DATE OF EXAM: 04/15/2020 COMPARISON: Chest x-ray 10/28/2018 HISTORY: Prekidney transplant TECHNIQUE: Frontal and lateral views of the chest are obtained. FINDINGS: There is no focal air space opacity, pleural effusion, or pneumothorax seen. The cardiac silhouette size is within normal limits. The osseous structures are intact, there is a spinal curva ture, eventration of right hemidiaphragm is noted. IMPRESSION: No acute cardiopulmonary process.
== END | disposition home or self-care (01) ==
LOC: RADUSWWP 12:54
PROVIDERS: ATTEND Surgery
DX: Z01.818 Encounter for other preprocedural examination (principal); N28.9 Disorder of kidney and ureter, unspecified; Z79.82 Long term (current) use of aspirin
CPT/HCPCS: 71046; 76770

== ENCOUNTER → 2021-01-12 | Outpatient (CLI) | payer MEDICARE, BC ==
--- NOTE | 2021-01-16 09:56 | MM ---
Reason for exam: screening (asymptomatic). Last mammogram was performed 1 year ago. History: Patient is postmenopausal. Family history of breast cancer in maternal grandmother and breast cancer in maternal aunt. Benign cyst aspiration of the left breast, January 01, 2003. 2 benign core biopsies of the left breast. Took hormonal contraceptives for 4 years. Physical Findings: A clinical breast exam by your physician is recommended on an annual basis and results should be correlated with mammographic findings. MG Screening Mammo w CAD Bilateral CC and MLO view(s) were taken. Prior study comparison: December 31, 2019, bilateral MG 3d screening mammo w/cad. November 18, 2018, bilateral MG 3d screening mammo w/cad. The breast tissue is heterogeneously dense. This may lower the sensitivity of mammography. Previous mammotome biopsy in the left breast. There is chronic nodularity bilaterally. No significant changes when compared with prior studies. ASSESSMENT: Benign, BI-RAD 2 RECOMMENDATION: Routine screening mammogram of both breasts in 1 year.
== END | disposition home or self-care (01) ==
LOC: RADMAMWWP 16:01
PROVIDERS: ATTEND Obstetrics & Gynecology
DX: Z12.31 Encounter for screening mammogram for malignant neoplasm of breast (principal); Z80.3 Family history of malignant neoplasm of breast; Z78.0 Asymptomatic menopausal state
CPT/HCPCS: 77067

== ENCOUNTER → 2021-02-14 | Outpatient (CLI) | payer MEDICARE, BC ==
--- NOTE | 2021-02-14 17:50 | CONS ---
CONSULTATION REASON FOR CONSULTATION: Sleep apnea. This 65-year-old female patient feeling fatigued and tired and somewhat sleepy was referred for sleep apnea evaluation. She has been diagnosed having Goodpasture disease, and the patient is currently suffering from end-stage renal disease. She developed end-stage renal disease back in 2018 after failing immunosuppression treatment, and currently she is undergoing dialysis 3 times a week. She has been snoring. No history of witnessed apneas. She has excessive fatigue and tiredness and sleepiness during the day. She goes to bed around 10 or 11 p.m. and wakes up at 8 a.m. in the morning. She wakes up tired despite averaging around 8 hours of sleep. She does not fall asleep while driving. She does not fall asleep during day-to-day activities. Her weight has been stable. She wakes up a few times in the middle of the night and she does not take any naps during the day. No recent weight gain, as mentioned. No nocturnal chest pain, heartburn or shortness of breath. PAST MEDICAL HISTORY: 1. Goodpasture disease. 2. End-stage renal disease. 3. Cough-variant asthma. 4. History of vasculitis, as mentioned. PAST SURGICAL HISTORY: Past surgical history includes hemodialysis access insertion, kidney biopsies. ALLERGIES: PENICILLINS and CIPRO and CARVEDILOL. MEDICATIONS: Medications include Singulair 10 mg p.o. daily, levothyroxine 125 mcg p.o. daily, MagneBind 300 mg twice a day, Zyrtec 10 mg p.o. daily, Probiotic 1 tablet a day, vitamin super B complex, biotin and Fioricet 50/300 every 4 hours on an as-needed basis. SOCIAL HISTORY: Nonsmoker. No use of alcoholism. No history of IV drugs. OCCUPATIONAL HISTORY: The patient is retired. Currently she is living in [place] with her . She is [place] and she is a [place]. She worked in [employer] for many years. Retired in 2018. REVIEW OF SYSTEMS: Fourteen-point review of systems was done. Positive findings are all mentioned in history of present illness. PHYSICAL EXAMINATION: BP is 124/75, pulse 68, respirations 16, temperature 97.5, saturation 97% on room air. Height is 5 feet 10 inches, weight is 155 and BMI is 22.2. Neck size is 13-1/2 inches. GENERAL APPEARANCE: Calm, comfortable. HEAD: Atraumatic, normocephalic. Neck is supple. No JVD. No goiter or neck masses. Mallampati class II. LUNGS: Clear to auscultation. Heart sounds are regular rate and rhythm. Normal S1, S2. No S3, S4. No murmurs. ABDOMEN: Soft, nontender. No organomegaly. EXTREMITIES: No edema. No cyanosis or clubbing. NEUROLOGIC: Awake and alert. There is no focal neurological deficit. IMPRESSION: 1. Limited sleepiness along with chronic fatigue and tiredness in a patient with known history of vasculitis. Low risk for obstructive sleep apnea. Patient was sent over for further investigation. 2. History of Goodpasture disease/vasculitis. 3. End-stage renal disease. 4. Hypothyroidism. PLAN: 1. Proceed with a home sleep study. Overall suspicion for sleep apnea is low. 2. Symptoms are most likely related to her comorbidities. 3. Will continue to follow and make further recommendations based on results of the home sleep study testing. MMODL / IJN: [id number] /
== END ==
LOC: SLEEP 14:49
PROVIDERS: ATTEND Internal Medicine Critical Care Medicine
DX: R53.83 Other fatigue (principal); N18.6 End stage renal disease; E03.9 Hypothyroidism, unspecified; Z86.79 Personal history of other diseases of the circulatory system; Z87.441 Personal history of nephrotic syndrome; Z79.890 Hormone replacement therapy; Z88.0 Allergy status to penicillin; Z88.1 Allergy status to other antibiotic agents; Z88.8 Allergy status to other drugs, medicaments and biological substances; Z88.6 Allergy status to analgesic agent; Z91.018 Allergy to other foods; Z87.891 Personal history of nicotine dependence
CPT/HCPCS: 99211

== ENCOUNTER → 2021-02-28 | Outpatient (CLI) | payer MEDICARE, BC ==
[2021-02-28 09:26] LABS: INR 0.9 (<1.2); Partial Thromboplastin Time 22.7 sec (22.0-30.0); Prothrombin Time 10.2 sec (9.0-12.0)
[2021-02-28 11:20] LABS: Basophils # (A) 0.05 X 10*3/uL (0.00-0.10); Eosinophils # (A) 0.31 X 10*3/uL (0.04-0.35); Eosinophils % (A) 6.3 %; HCT 31.8 % (37.2-46.3); HGB 10.3 g/dL (12.0-15.0); Lymphocytes % (A) 28.5 %; MCH 29.9 pg (27.0-32.0); MCHC 32.4 g/dL (32.0-37.0); MCV 92.2 fL (80.0-97.0); Mean Platelet Volume 10.1 fL (9.5-12.2); Monocytes # (A) 0.46 X 10*3/uL (0.20-1.00); Monocytes % (A) 9.4 %; Neutrophils # (A) 2.68 X 10*3/uL (1.80-7.70); Neutrophils % (A) 54.6 %; Platelet Count 250 X 10*3/uL (140-440); RBC 3.45 X 10*6/uL (4.10-5.20); RDW 12.5 % (11.5-14.5); WBC 4.91 X 10*3/uL (4.50-10.00)
[2021-02-28 12:30] LABS: Hepatitis B Core IgM Nonreactive (Nonreactive); Hepatitis B Surface AB- Quant 3.5 mIU/mL; Hepatitis B Surface Antibody Nonreactive (Nonreactive); Hepatitis B Surface Antigen Nonreactive (Nonreactive); Hepatitis C IgG Antibody Nonreactive (Nonreactive)
[2021-02-28 22:23] LABS: HIV 2 AB Non-Reactive (Non-Reactive); HIV AB P24 Non-Reactive (Non-Reactive); HIV P24 AG Non-Reactive (Non-Reactive)
[2021-03-01 01:46] LABS: African American GFR (CKD) 10.3 (60.0-200.0); Albumin 4.7 g/dL (3.8-4.9); Albumin/Globulin Ratio 1.86 (1.60-3.17); Anion Gap 18.8 mmol/L (10.00-18.00); BUN/Creat Ratio 11.38 Ratio (12.00-20.00); Blood Urea Nitrogen 55.1 mg/dL (9.0-27.0); Calcium 9.9 mg/dL (8.7-10.3); Carbon Dioxide 19.5 mmol/L (20.0-27.5); Globulin 2.5 g/dL (1.6-3.3); Non-African American GFR(CKD) 8.8 (60.0-200.0); Potassium 4.4 mmol/L (3.5-5.5); Total Bilirubin 0.3 mg/dL (0.30-1.20); Total Protein 7.2 g/dL (6.2-8.2)
[2021-03-01 13:36] LABS: Hepatits C Virus RNA Not detected (Not detected); Hepatits C Virus RNA, Quant <12 IU/mL (<12); LOG HCV IU/mL <1.08 (<1.08)
== END | disposition home or self-care (01) ==
LOC: LABWHC1 08:33
PROVIDERS: ATTEND Surgery
DX: Z13.228 Encounter for screening for other metabolic disorders (principal); Z13.220 Encounter for screening for lipoid disorders; E11.22 Type 2 diabetes mellitus with diabetic chronic kidney disease; B19.10 Unspecified viral hepatitis B without hepatic coma; N18.4 Chronic kidney disease, stage 4 (severe); Z76.82 Awaiting organ transplant status; Z11.4 Encounter for screening for human immunodeficiency virus [HIV]; E11.65 Type 2 diabetes mellitus with hyperglycemia; D53.9 Nutritional anemia, unspecified; R79.1 Abnormal coagulation profile; Z11.1 Encounter for screening for respiratory tuberculosis
CPT/HCPCS: 36415; 80053; 82465; 82977; 83036; 83615; 85025; 85610; 85730; 86480; 86704; 86705; 86706; 86780; 86803; 87340; 87390; 87522

== ENCOUNTER → 2021-05-25 | Outpatient (CLI) | payer MEDICARE, BC ==
[2021-05-25 10:51] LABS: ALT 18 U/L (8-44); AST 20 U/L (13-35); Chol/HDL Ratio 2.61 Ratio; LDL Cholesterol,Calculated 77.4 mg/dL (0.0-131.0)
== END | disposition home or self-care (01) ==
LOC: LABWHC1 08:18
PROVIDERS: ATTEND Internal Medicine Interventional Cardiology
DX: E78.2 Mixed hyperlipidemia (principal)
CPT/HCPCS: 36415; 80061; 84450; 84460

== ENCOUNTER → 2021-09-14 | Outpatient (CLI) | payer MEDICARE, BC ==
[2021-09-14 16:46] LABS: ALT 21 U/L (8-44); AST 24 U/L (13-35); LDL Cholesterol,Calculated 71.5 mg/dL (0.0-131.0)
== END | disposition home or self-care (01) ==
LOC: LABWHC1 09:49
PROVIDERS: ATTEND Internal Medicine Interventional Cardiology
DX: E78.2 Mixed hyperlipidemia (principal)
CPT/HCPCS: 36415; 80061; 84450; 84460

== ENCOUNTER → 2021-11-21 | Outpatient (CLI) | payer MEDICARE, BC ==
--- NOTE | 2021-11-21 15:55 | XR ---
EXAM TYPE: LUMBAR SPINE X RAY SERIES COMPARISON: NONE HISTORY: Pain TECHNIQUE: 4 views are submitted. FINDINGS: Alignment is anatomic. The pedicles are intact. The transverse processes are intact. There is grad e 1 anterolisthesis L5 on S1. There is facet arthropathy L4-L5 and degenerative disc disease L5-S1. S light curvature of the spine with diffuse osteopenia. IMPRESSION: 1. Degenerative disc disease L5-S1 with grade 1 anterior listhesis. Could not exclude bilateral pars defect correlate clinically.
--- NOTE | 2021-11-21 15:58 | XR ---
EXAMINATION TYPE: XR pelvis AP view DATE OF EXAM: 11/21/2021 COMPARISON: NONE HISTORY: Pain The osseous structures are intact and the joint spaces are preserved. No acute fracture is seen. Vi sualized bowel gas pattern is nonspecific. Postsurgical change in the pelvis. There is arthropathy o f the hips. Hypertrophic change of the pubic symphysis. IMPRESSION: 1. No acute fracture.
== END | disposition home or self-care (01) ==
LOC: RADXRMAIN 10:03
PROVIDERS: ATTEND Nurse Practitioner Family
DX: M51.27 Other intervertebral disc displacement, lumbosacral region (principal)
CPT/HCPCS: 72110; 72170

== ENCOUNTER → 2022-01-16 | Outpatient (CLI) | payer MEDICARE, BC ==
--- NOTE | 2022-01-16 14:19 | BD ---
EXAMINATION TYPE: Axial Bone Density DATE OF EXAM: 01/16/2022 COMPARISON: 2018 CLINICAL HISTORY: 66 years year old Female. ICD-10 CODE: M89.9 disorder of bone Height: 5'10 Weight: 154 FRAX RISK QUESTIONS: Secondary Osteoporosis: 3. Menopause before 45: n RISK FACTORS HISTORY OF: Diet low in dairy products/other sources of calcium: n Postmenopausal woman: y MEDICATIONS: Thyroid Medications: Which medication: Levothyroxine How Lon-15 years Additional Medications: asthma, cholesterol , dialysis 4 years, good pasture syndrome Additional History: dialysis EXAM MEASUREMENTS: Bone mineral densitometry was performed using the [employer] System. Bone mineral density as measured about the Lumbar spine is: ----- L1-L4(G/cm2): 1.003 T Score Values are as follows: ----- L1: -0.7 ----- L2: -1.2 ----- L3: -1.5 ----- L4: -2.4 ----- L1-L4: Bone mineral density has: Decreased -12.2% since study of: 07/31/2017 Bone mineral density about the R hip (g/cm2): 0.800 Bone mineral density about the L hip (g/cm2): 0.822 T Score values are as follows: -----R Neck: -1.7 -----L Neck: -1.6 -----R Total: -1.6 -----L Total: -1.9 Bone mineral density has: Decreased -10.5% since study of: 07/31/2017 FRAX%s: The graph provided illustrates a 9.1% chance for a major osteoporotic fx and a 1.2% chance fo r the hips probability for fx in 10 years time. IMPRESSION: Osteopenia (T Score between -2.5 and -1). There is slightly increased risk of fracture and the patient may be considered for treatment. Re-Screen 2-5 years. NOTE: T-SCORE=SD OF THE YOUNG ADULT MEAN.
--- NOTE | 2022-01-18 08:24 | MM ---
Reason for Exam: Screening (asymptomatic). Last screening mammogram was performed 12 month(s) ago. Patient History: Menarche at age 12. First Full-Term at age 27. Postmenopausal. Patient used Hormonal Contraceptives for 4 years. Benign Core Biopsy on the left side. Benign Core Biopsy on the left side. 01/01/2003, Benign Cyst Aspiration on the left side. Maternal grandmother had breast cancer. Maternal aunt had breast cancer. Risk Values: Candice 5 year model risk: 3.0%. NCI Lifetime model risk: 11.2%. Prior Study Comparison: 11/18/2018 Bilateral Screening Mammogram, [facility]. 12/31/2019 Bilateral Screening Mammogram, [facility]. 01/12/2021 Bilateral Screening Mammogram, [facility]. Tissue Density: The breast tissue is heterogeneously dense. This may lower the sensitivity of mammography. Findings: Analyzed By CAD. There is no suspicious group of microcalcifications or new suspicious mass in either breast. Chronic nodularity within the right breast. 2 biopsy clips in the left breast. No significant change from prior examinations. Overall Assessment: Benign, BI-RAD 2 Management: Screening Mammogram of both breasts in 1 year. A clinical breast exam by your physician is recommended on an annual basis and results should be correlated with mammographic findings. Electronically signed and approved by: Danny Rock D.O.
== END | disposition home or self-care (01) ==
LOC: RADBDWWP 12:19
PROVIDERS: ATTEND Family Medicine
DX: Z12.31 Encounter for screening mammogram for malignant neoplasm of breast (principal); M85.89 Other specified disorders of bone density and structure, multiple sites; Z80.3 Family history of malignant neoplasm of breast; Z78.0 Asymptomatic menopausal state
CPT/HCPCS: 77063; 77067; 77080

== ENCOUNTER → 2022-02-15 | Outpatient (CLI) | payer MEDICARE, BC ==
--- NOTE | 2022-02-16 09:15 | NM ---
EXAMINATION TYPE: NM parathyroid w/spect DATE OF EXAM: 02/15/2022 COMPARISON: NONE HISTORY: Hypercalcemia. TECHNIQUE: Following administration of 24.4 mCi Tc99m Sestamibi. Anterior projection images of the neck and ches t were obtained 10 minutes and 3 hours post injection. SPECT images of the neck and chest were obtai madonna and reconstructed in three axes. FINDINGS: Thyroid tracer washout: Delayed images demonstrate complete tracer washout from the thyroid. Parathyroid uptake: None. The two-hour delayed images do not demonstrate any focal abnormal persisten t uptake in the region of the parathyroid glands to suggest parathyroid adenoma. Normal uptake: There is physiological tracer uptake in the submandibular and parotid glands along wit h the salivary glands. IMPRESSION: Normal parathyroid imaging study. No evidence for suspicious mediastinal uptake to suggest mediastina l parathyroid adenoma
== END | disposition home or self-care (01) ==
LOC: RADNMMAIN 10:41
PROVIDERS: ATTEND Internal Medicine Nephrology
DX: E83.52 Hypercalcemia (principal)
CPT/HCPCS: 78071; A9500

== ENCOUNTER → 2022-02-22 | Outpatient (CLI) | payer MEDICARE, BC | END | disposition home or self-care (01) | LOC: LABWHC1 10:13 | PROVIDERS: ATTEND Surgery | DX: Z53.9 Procedure and treatment not carried out, unspecified reason (principal) ==

== ENCOUNTER → 2022-02-22 | Outpatient (CLI) | payer MEDICARE, BC ==
[2022-02-22 12:30] LABS: INR 0.9 (<1.2); Partial Thromboplastin Time 22.6 sec (22.0-30.0)
[2022-02-22 12:35] LABS: ALT 22 U/L (4-34); AST 34 U/L (14-36); African American GFR (CKD) 29 (>60 ml/min/1.73 sqM); Albumin 4.6 g/dL (3.5-5.0); Albumin/Globulin Ratio 1.6; Alkaline Phosphatase 88 U/L (38-126); Anion Gap 6 mmol/L; Bilirubin,Unconjugated 0.3 mg/dL (0.0-1.1); Blood Urea Nitrogen 15 mg/dL (7-17); Calcium 9.4 mg/dL (8.4-10.2); Carbon Dioxide 35 mmol/L (22-30); Chloride 96 mmol/L (98-107); GGT 34 U/L (12-43); Globulin 2.9 g/dL; Glucose 89 mg/dL (74-99); LDH 490 U/L (313-618); Non-African American GFR(CKD) 25 (>60 ml/min/1.73 sqM); Potassium 3.6 mmol/L (3.5-5.1); Sodium 137 mmol/L (137-145); Total Bilirubin 0.6 mg/dL (0.2-1.3); Total Protein 7.5 g/dL (6.3-8.2)
[2022-02-22 19:38] LABS: Basophils # (A) 0.06 X 10*3/uL (0.00-0.10); Basophils % (A) 1.2 %; Eosinophils # (A) 0.22 X 10*3/uL (0.04-0.35); Eosinophils % (A) 4.2 %; HCT 35.8 % (37.2-46.3); HGB 11.8 g/dL (12.0-15.0); Immature Grans, Automated 0.2 %; Lymphocytes # (A) 1.29 X 10*3/uL (0.90-5.00); Lymphocytes % (A) 24.8 %; MCH 31.4 pg (27.0-32.0); MCV 95.2 fL (80.0-97.0); Mean Platelet Volume 10.3 fL (9.5-12.2); Monocytes # (A) 0.42 X 10*3/uL (0.20-1.00); Monocytes % (A) 8.1 %; NRBC Per 100 WBC 0 /100 WBCS (0.0-0.0); Neutrophils % (A) 61.5 %; Platelet Count 267 X 10*3/uL (140-440); RBC 3.76 X 10*6/uL (4.10-5.20); RDW 13.2 % (11.5-14.5)
[2022-02-22 20:20] LABS: Hepatitis B Surface AB- Quant 4.4 mIU/mL; Hepatitis B Surface Antibody Nonreactive (Nonreactive)
[2022-02-22 20:26] LABS: Hepatitis B Core IgM Nonreactive (Nonreactive); Hepatitis B Surface Antigen Nonreactive (Nonreactive); Hepatitis C IgG Antibody Nonreactive (Nonreactive)
[2022-02-22 20:36] LABS: EBV-EA (IgG) 0.7 AI; EBV-EBNA(IgG) >8.0 AI; EBV-VCA (IgG) >8.0 AI; EBV-VCA (IgM) <0.2 AI
[2022-02-22 21:08] LABS: HIV 2 AB Non-Reactive (Non-Reactive); HIV AB P24 Non-Reactive (Non-Reactive); HIV P24 AG Non-Reactive (Non-Reactive)
== END | disposition home or self-care (01) ==
LOC: LABWHC1 10:16
PROVIDERS: ATTEND Internal Medicine Interventional Cardiology
DX: E78.2 Mixed hyperlipidemia (principal)
CPT/HCPCS: 36415; 80053; 82248; 82465; 82977; 83036; 83615; 85025; 85610; 85730; 86480; 86592; 86644; 86663; 86664; 86665; 86704; 86705; 86706; 86803; 87340; 87390; 87522